=== PATIENT | female | born 1985 | race Caucasian/White ===

== ENCOUNTER 2018-03-29 12:20 | Inpatient (IN) ==
[2018-03-29] MEDS ORDERED: Gadodiamide PF Inj 287 MG/ML 20 ML Syringe (for RAD MRI) IVCONTRAST ONE (12:21)
[2018-03-29] MEDS ORDERED: HYDROmorphone PF Inj 1 MG/ML Ampul IV.PUSH ONE ×2 (13:43→17:34)
[2018-03-29 14:11] LABS: Baso % (Auto) 0.5 % (0.0-2.0); Eos # (Auto) 0.2 th/mm3 (0.0-0.4); Eos % (Auto) 2.3 % (0.0-4.0); Hematocrit 32.2 % (35.0-46.0); Hemoglobin 10.7 gm/dL (11.6-15.3); Lymph # (Auto) 2.1 th/mm3 (1.0-4.8); Lymph % (Auto) 21.7 % (9.0-44.0); Mean Corpuscular HGB Conc 33.3 % (32.0-36.0); Mean Corpuscular Hemoglobin 23.6 pg (27.0-34.0); Mean Corpuscular Volume 70.8 fL (80.0-100.0); Mean Platelet Volume 7.9 fL (7.0-11.0); Mono # (Auto) 0.4 th/mm3 (0.0-0.9); Mono % (Auto) 4.2 % (0.0-8.0); Neut # (Auto) 6.8 th/mm3 (1.8-7.7); Neut % (Auto) 71.3 % (16.0-70.0); Platelet Count 552 th/mm3 (150-450); Red Blood Count 4.55 mil/mm3 (4.00-5.30); Red Cell Distribution Width 17.6 % (11.6-17.2); White Blood Count 9.5 th/mm3 (4.0-11.0)
[2018-03-29] MEDS ORDERED: HYDROmorphone PF Inj 2 MG/ML Vial IV.PUSH ONE ×2 (14:15→17:45)
--- NOTE | 2018-03-29 14:28 | ED ---
HPI General Chief Complaint: Back Pain/Injury Stated Complaint: Back pain with increased severity Time Seen by Provider: 03/29/18 13:10 History of Present Illness HPI Narrative: Patient has history of recent hospitalization on 03/11/1918 for osteomyelitis of L5 and sacral area with IV antibiotics for 8 days and discharged with oral antibiotics afterwards. Patient was seen by PMD and prescribed analgesics however patient states pain is increasing in severity despite presence of analgesics. Patient was seen yesterday and recommended to have a MRI to recheck for abscess and lumbosacral spine to see if it has increased in severity. Patient panicked and signed out AMA without. starting being don patient now accepts the need for the MRI . Patient was hospitalized in [facility] for 8 days . Discharge records have been requested. Patient states the pain is localized to L5 and sacral region bilaterally. Patient has had persistent paresthesias or numbness to both lower extremities that have not changed since hospitalization on the . Patient also states she has had intermittent chills but presentation has no fever noted . 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 No other pain or discomfort or symptoms. Patient is a chronic smoker and has a chronic cough Related Data Home Medications Medication Instructions Recorded Confirmed ciprofloxacin 500 mg PO BID 03/29/18 03/29/18 cyclobenzaprine 5 PO DAILY 03/29/18 doxycycline hyclate 100 mg PO DAILY 03/29/18 03/29/18 hydroxyzine pamoate 25 mg PO QID 03/29/18 03/29/18 meloxicam 7.5 PO DAILY 03/29/18 Allergies Allergy/AdvReac Type Severity Reaction Status Date / Time tramadol AdvReac Gastrointestinal Verified 03/29/18 12:24 Upset Review of Systems ROS Unobtainable All other systems reviewed negative except as stated in HPI Constitutional Reports chills, Reports fatigue, Denies lethargy and Denies malaise Comments: GENERAL: Anxious female oriented 3 with increased lumbosacral pain that has progressed since discharge from hospital on March 20, 2018 SKIN: Focused skin assessment warm/dry. HEAD: Atraumatic. Normocephalic. EYES: Pupils equal and round. No scleral icterus. No injection or drainage. ENT: No nasal bleeding or discharge. Mucous membranes pink and moist. NECK: Trachea midline. No JVD. CARDIOVASCULAR: Regular rate and rhythm. No murmur appreciated. RESPIRATORY: Generalized decreased breath sounds with rhonchi bilaterally GASTROINTESTINAL: Abdomen soft, non-tender, nondistended. Hepatic and splenic margins not palpable. MUSCULOSKELETAL: No obvious deformities. No clubbing. No cyanosis. No edema. Patient has well localized tenderness to lower lumbar spine and sacral region that is increased with percussion NEUROLOGICAL: Awake and alert. No obvious cranial nerve deficits. Motor grossly within normal limits. Normal speech. Normal sensation to lower extremities however patient complains of constant numbness in that area bilaterally PSYCHIATRIC: Appropriate mood and affect; insight and judgment normal. However patient has increased anxiety and stress Eyes Denies change in vision [facility] Medical History Medical History Medical history unknown (Acute) Osteomyelitis (Acute) Patient denies medical problems (Acute) Diskospondylitis (Acute) Surgical History Surgical History Hx of tubal ligation (Acute) Previous section (Acute) S/P biopsy (Acute) Social History Social History Substance History: Past History Second Hand Smoke Exposure: Yes Smoking Status: Never smoker Tobacco Type: Cigarettes How Often Do You Have a Drink Containing Alcohol: Never Recent Travel in [facility] within the Last 8 Weeks: No Recent Out of Country Travel within the Last 8 Weeks: No Immunization History Tetanus Immunization: <5 Years Hx Influenza Vaccine This Season: No Exam Narrative Exam Narrative: GENERAL: Patient presents fo increasing lumbosacral pain for the last 2 weeks since discharge after IV antibiotics for infection of lumbosacral region . Biopsy of L5 done 3 days after her bariatric treatment showed no lesions SKIN: Focused skin assessment warm/dry. HEAD: Atraumatic. Normocephalic. EYES: Pupils equal and round. No scleral icterus. No injection or drainage. ENT: No nasal bleeding or discharge. Mucous membranes pink and moist. NECK: Trachea midline. No JVD. CARDIOVASCULAR: Regular rate and rhythm. No murmur appreciated. RESPIRATORY: No accessory muscle use. Clear to auscultation. Breath sounds equal bilaterally. GASTROINTESTINAL: Abdomen soft, non-tender, nondistended. Hepatic and splenic margins not palpable. MUSCULOSKELETAL: No obvious deformities. No clubbing. No cyanosis. No edema. Patient has well localized tenderness to L5 and upper sacral region with percussion. No evidence of infection from puncture wound site for biopsy NEUROLOGICAL: Awake and alert. No obvious cranial nerve deficits. Motor grossly within normal limits. Normal speech. PSYCHIATRIC: Appropriate mood and affect; insight and judgment normal. Increased anxiety and stress Course Reevaluation(s) Reevaluation #1: Exacerbation of level of pain 10 out of 10 requiring more analgesics Time: 15:28 Reevaluation #2: Still waiting for results of MRI and medical records from previous hospitalization. Increasing pain recurrent daily requiring increased analgesic Time: 16:39 Initial Documented Vital Signs Temperature 98.9 F 03/29/18 12:24 Pulse Rate 82 03/29/18 12:24 Respiratory Rate 16 03/29/18 12:24 Blood Pressure 133/83 03/29/18 12:24 Pulse Oximetry 98 03/29/18 12:24 Last Documented Vital Signs Temperature 98.9 F 03/29/18 12:24 Pulse Rate 99 H 03/29/18 17:20 Respiratory Rate 16 03/29/18 17:20 Blood Pressure 104/78 03/29/18 17:20 Pulse Oximetry 96 03/29/18 17:20 Critical Care Time Critical Care Time: Yes Total Critical Care Time: 110 Attestation: Patient is alert and oriented 3 and appeared to be appropriate Medical Decision Making MDM Narrative Medical decision making narrative: Patient has history of drug abuse presentation with significant analgesia that is progressive since the discharge and switch from IV to oral antibiotic appears to increasing analgesia and potential of exacerbation of osteomyelitis. However potential of narcotic abuse in the past exists as a possible etiology for presentation Differential Diagnosis Differential Diagnosis: Osteomyelitis Spine abscess Cauda equina Medical Records Medical records reviewed: Yes I reviewed the patient's medical records. POC Test Results POC Urine Results: Negative Lab Data Lab results reviewed: Yes I reviewed the patient's lab results. Lab results narrative: CRP and sed rate significantly elevated consistent with persistent osteomyelitis. However there is no significant leukocytosis Result diagrams: 03/29/18 14:00 Lab Results 03/29/18 03/29/18 03/29/18 Range/Units 14:00 14:00 14:00 CBC w Diff Auto diff final WBC 9.5 (4.0-11.0) th/mm3 RBC 4.55 (4.00-5.30) mil/mm3 Hgb 10.7 L (11.6-15.3) gm/dL Hct 32.2 L (35.0-46.0) % MCV 70.8 L (80.0-100.0) fL MCH 23.6 L (27.0-34.0) pg MCHC 33.3 (32.0-36.0) % RDW 17.6 H (11.6-17.2) % Plt Count 552 H (150-450) th/mm3 MPV 7.9 (7.0-11.0) fL Neut % (Auto) 71.3 H (16.0-70.0) % Lymph % (Auto) 21.7 (9.0-44.0) % [place] % (Auto) 4.2 (0.0-8.0) % Eos % (Auto) 2.3 (0.0-4.0) % Baso % (Auto) 0.5 (0.0-2.0) % Neut # (Auto) 6.8 (1.8-7.7) th/mm3 Lymph # (Auto) 2.1 (1.0-4.8) th/mm3 [place] # (Auto) 0.4 (0.0-0.9) th/mm3 Eos # (Auto) 0.2 (0.0-0.4) th/mm3 Baso # (Auto) 0.0 (0.0-0.2) th/mm3 WBC Differential . Differential Comment . ESR 72 H (0-20) mm/hr C-Reactive Protein 4.46 H (0.00-0.30) mg/dL Imaging Data Radiologist's impression: Lumbar Spine MRI 03/29/18 13:34 CONCLUSION: Discharge Plan Discharge Disposition Patient Disposition: 30 Still Patient Discharge Condition Condition: Stable Discharge Details Diagnosis: Osteomyelitis of spine Physicians Team ED Provider: Brian Gomez Primary Care Provider: Primary Care Anu Daugherty Attending Provider: Abdelrahman Aldridge Status ED Status: Admitted Patient
--- NOTE | 2018-03-29 17:13 | MR ---
EXAM DATE: 03/29/2018 5:00 PM EDT AGE/SEX: 32 years / Female INDICATIONS: . Lower back pain radiating down through the leg with history of infection. CLINICAL DATA: This is the patient's subsequent encounter. Patient reports that signs and symptoms h ave been present for 1 month and indicates a pain score of 9/10. MEDICAL/SURGICAL HISTORY: None. Tubal ligation. section. L5 biopsy COMPARISON: No prior exams available for comparison. TECHNIQUE: Multiplanar, multisequence MRI examination of the lumbar spine was performed without and with 16 ml Omniscan (gadodiamide) contrast as a single exam dose. FINDINGS: The most caudal-appearing lumbar vertebra is numbered as L5. Vertebra: Normal in height. Edema is noted in the endplates at the L4-5 level. Normal alignment. Conus: Normal level and configuration. Discs: There is desiccation and mild disc space narrowing at the L4-5 level. There is an anterior extradural defect noted at this level. The other disks are preserved. Post Contrast: There is focal enhancement involving the endplates at the L4 and L5 levels and abnorm al finding and enhancement in the anterior epidural space on the sagittal images. T12-L1: There is a small right parasagittal protrusion measuring approximately 6 mm across the base and 2 mm in AP diameter with mild mass effect on the anterior thecal sac. L1-L2: The thecal sac has a normal diameter. No evidence of disc bulge or protrusion. The neural foramina are patent bilaterally. L2-L3: The thecal sac has a normal diameter. No evidence of disc bulge or protrusion. The neural foramina are patent bilaterally. L3-L4: The thecal sac has a normal diameter. No evidence of disc bulge or protrusion. The neural fo ramina are patent bilaterally. L4-L5: There is a broad-based posterior moderate size protrusion measuring 2.2 cm across the base a nd up to 6 mm in greatest AP diameter with mass effect and flattening of anterior thecal sac. There i s inflammatory change and soft tissue swelling surrounding the vertebral body. The neural foramina ar e patent. L5-S1: The thecal sac has a normal diameter. No evidence of disc bulge or protrusion. The neural foramina are patent bilaterally. 1. Findings characteristic of discitis at the L4-5 level with abnormal thickening and enhancement in the anterior epidural region consistent with phlegmon. There is mass effect on the anterior thecal s ac. There is soft tissue swelling and edema surrounding this region. 2. Small right parasagittal protrusion at the T12-L1 level. Electronically signed by: Dominguez Eric MD 03/29/2018 5:11 PM EDT
[2018-03-29] MEDS ORDERED: Acetaminophen 325 MG Tablet PO PRN (19:53)
[2018-03-29] MEDS ORDERED: HYDROmorphone PF Inj 1 MG/ML Ampul IV.PUSH PRN ×2 (19:58→20:03)
[2018-03-29] MEDS: HYDROmorphone PF Inj 2 MG/ML Vial IV.PUSH PRN (20:21)
[2018-03-29] MEDS: Vancomycin Inj 1,000 MG in Sodium Chlor 0.9% Inj 250 ML IV.SIG SCH (20:21)
[2018-03-29] MEDS: Enoxaparin Inj 40 MG/0.4 ML Syringe SQ SCH (20:22)
[2018-03-29] MEDS: oxyCODONE/Acetaminophen 10/325 Tablet PO PRN (21:47)
[2018-03-30] MEDS: HYDROmorphone PF Inj 2 MG/ML Vial IV.PUSH PRN ×5 (00:09→19:36)
[2018-03-30] MEDS: Temazepam 15 MG Capsule PO PRN ×2 (00:12→22:19)
[2018-03-30] MEDS: oxyCODONE/Acetaminophen 10/325 Tablet PO PRN ×4 (04:20→22:20)
[2018-03-30 07:26] LABS: Hematocrit 27.2 % (35.0-46.0); Hemoglobin 9.3 gm/dL (11.6-15.3); Mean Corpuscular HGB Conc 34.1 % (32.0-36.0); Mean Corpuscular Hemoglobin 24.4 pg (27.0-34.0); Mean Corpuscular Volume 71.5 fL (80.0-100.0); Mean Platelet Volume 7.7 fL (7.0-11.0); Platelet Count 410 th/mm3 (150-450); Red Blood Count 3.81 mil/mm3 (4.00-5.30); Red Cell Distribution Width 17.4 % (11.6-17.2); White Blood Count 8.7 th/mm3 (4.0-11.0)
[2018-03-30 07:30] LABS: Potassium 4.1 meq/L (3.5-5.1)
[2018-03-30 07:36] LABS: Carbon Dioxide 24.2 meq/L (21.0-32.0)
[2018-03-30 07:54] LABS: C-Reactive Protein 3.76 mg/dL (0.00-0.30)
--- NOTE | 2018-03-30 08:01 | P.HP ---
History of Present Illness Primary Care Physician: No Primary Care Physician Chief Complaint: Back pain History of Present Illness: 32-year-old female with known history of spinal abscess, history of IV drug use (subjectively clean for 1 year) who presented to the ER because of intractable back pain. Information was taken from patient and mother at bedside. Apparently her symptoms started about a month ago and they went to [facility] where she was diagnosed with a spinal abscess. They did a bone biopsy to indicate osteomyelitis, she was on 8 days of vancomycin IV while in the hospital. Patient was followed by infectious disease at that time and was discharged home on oral antibiotics to include Cipro and doxycycline. Patient did well for the first few days but then she started having progressive back pain, difficulty ambulating, unable to put on her own clothes. She indicates the pain has regressed got worse that wraps around her pelvis, paresthesia going down both lower extremities. Patient denies any loss of bowel or bladder control. Patient came to the hospital here for further evaluation. Patient had MRI performed here which did not indicate any abscess, however does indicate discitis of L4-L5. Because of that reason it was recommended that patient be admitted with neurosurgical consultation. Upon evaluating patient in the room she is laying on her side. She was continuously moaning and groaning due to pain. - Diagnosis (1) Intractable low back pain (2) Discitis of lumbar region Inpatient Certification: I certify that the inpatient services were ordered in accordance with Medicare regulations governing the order. This includes certification that hospital inpatient services are reasonable and necessary and in the case of services not specified as inpatient-only under 42 CFR 419.22(n), that they are appropriately provided as inpatient services in accordance to with the 2-midnight benchmark under 43 CFR 412.3(e) Estimated Total Length of Stay (Days): 7 Plans for Post Hospital Care: Home Review of Systems All other systems reviewed negative except as stated in HPI Musculoskeletal: Reports abnormal walking, Reports back pain, Reports numbness, Reports radiating pain into limb, Reports tingling PMFSH - History History Provided By: Patient - Medical History Medical History: Medical History (Last Updated 03/30/18 @ 07:55 by SANFORD Merino) History of intravenous drug use in remission Osteomyelitis - Surgical History Surgical History: Surgical History (Last Reviewed 03/30/18 @ 07:56 by SANFORD Merino) Hx of tubal ligation Previous section S/P biopsy - Family History Family History: Family History (Last Updated 03/30/18 @ 07:43 by SANFORD Merino) Mother History of cervical cancer - Tobacco History Second Hand Smoke Exposure: Yes Tobacco Use In Past 30 Days: Yes (1ppd) Smoking Status: Never smoker Tobacco Type: Cigarettes - Alcohol History How Often Do You Have a Drink Containing Alcohol: Never - Substance Use History Substance History: Past History (History of IV drug use with heroin, subjectively clean for 1 year) - Travel History Recent Travel in the [facility] Within the Last 8 Weeks: No Recent Travel Out of the Country Within the Last 8 Weeks: No - Immunization History Tetanus Immunization: <5 Years Hx Influenza Vaccine This Season: No Medications and Allergies Active Medications: Active Medications Acetaminophen (Tylenol) 650 mg PO Q4H PRN PRN Reason: Temp > 100.4 Enoxaparin Sodium (Lovenox Inj) 40 mg SQ Q24H RUBEN Last Admin: 03/29/18 20:22 Dose: 40 mg Hydromorphone HCl (Dilaudid Pf Inj) 0.5 mg IV.PUSH Q4H PRN PRN Reason: BREAKTHROUGH PAIN Last Admin: 03/30/18 05:02 Dose: 0.5 mg Ceftazidime 1,000 mg/ Sodium (Chloride) 100 mls @ 200 mls/hr IV.SIG Q8H RUBEN Last Admin: 03/30/18 06:01 Dose: 200 mls/hr Vancomycin HCl 1,000 mg/ (Sodium Chloride) 250 mls @ 250 mls/hr IV.SIG Q24H [facility] Last Infusion: 03/29/18 21:49 Dose: Infused Ondansetron HCl (Zofran Odt) 4 mg PO Q6H PRN PRN Reason: NAUSEA OR VOMITING Oxycodone/Acetaminophen (Percocet 10/325 Mg) 1 tab PO Q4H PRN PRN Reason: PAIN SCALE 6 TO 10 Last Admin: 03/30/18 04:20 Dose: 1 tab Sennosides (Senokot) 17.2 mg PO Q12H PRN PRN Reason: Moderate Constipation Sodium Chloride (Ns Flush) 2 ml IV.FLUSH PRN PRN PRN Reason: FLUSH AFTER USING IV ACCESS Temazepam (Restoril) 15 mg PO HS PRN PRN Reason: INSOMNIA Last Admin: 03/30/18 00:12 Dose: 15 mg Allergies Allergy/AdvReac Type Severity Reaction Status Date / Time tramadol AdvReac Gastrointestinal Verified 03/29/18 12:24 Upset Home Medications Medication Instructions Recorded Confirmed Type ciprofloxacin 500 mg PO BID 03/29/18 03/29/18 History cyclobenzaprine 5 PO DAILY 03/29/18 History doxycycline hyclate 100 mg PO DAILY 03/29/18 03/29/18 History hydroxyzine pamoate 25 mg PO QID 03/29/18 03/29/18 History meloxicam 7.5 PO DAILY 03/29/18 History Exam Vital signs: Vital Signs 03/29/18 12:24 03/29/18 13:22 03/29/18 14:39 Temperature 98.9 F Pulse Rate 82 Respiratory Rate 16 16 16 Blood Pressure 133/83 Pulse Oximetry 98 99 03/29/18 15:25 03/29/18 17:20 03/29/18 20:00 Temperature 98.8 F Pulse Rate 96 H 99 H 88 Respiratory Rate 16 16 16 Blood Pressure 101/82 104/78 112/68 Pulse Oximetry 99 96 03/29/18 21:30 03/30/18 00:00 03/30/18 00:10 Temperature 97.3 F L 99.2 F Pulse Rate 74 105 H Respiratory Rate 20 18 10 L Blood Pressure 122/58 L 123/56 L Pulse Oximetry 98 97 03/30/18 04:00 Temperature 98.1 F Pulse Rate 76 Respiratory Rate 18 Blood Pressure 126/60 Pulse Oximetry 96 Intake & Output 03/29/18 03/30/18 03/30/18 18:59 06:59 18:59 Intake Total 350 / 350 Output Total 100 / 100 Balance 250 / 250 Weight 81 kg Intake: IV 350 / 350 Vancomycin Inj 1,000 MG In NS 250 / 250 Inj 250 ML @ 250 mls/hr IV.SIG Q24H RUBEN Rx#:[id number] Tazicef Inj 1,000 MG In NS Inj 100 / 100 100 ML @ 200 mls/hr IV.SIG Q8H RUBEN Rx#:[id number] Output: Urine 100 / 100 Other: Date of Last Bowel Movement 03/29/18 Narrative: GENERAL: Well-developed, well-nourished, in no acute distress. alert and orientated HEENT: Head is normocephalic without any lesions or masses noted. Facial features are symmetric. Eyes: Pupils equal round reactive to light. Extraocular muscles are intact. Conjunctivae were clear. Oropharyngeal: Pharynx without any erythema edema. Tongue is midline without deviation. Buccal mucosa is moist without any masses or lesions NECK: Supple without any masses. Trachea midline no deviation. No JVD, no bruits are appreciated CARDIAC: Regular rhythm, regular rate. S1/S2 are heard. No murmurs gallops or rubs. LUNGS: Clear to auscultation bilaterally. No wheeze, rhonchi or rales. No use of accessory muscles on inspiration or expiration. ABDOMEN: Soft, nontender. Nondistended. Bowel sounds heard in all 4 quadrants. No organomegaly or masses. Negative rebound, negative guarding EXTREMITIES: No edema, pulses are equal bilaterally. No cyanosis or clubbing NEUROLOGY: Mood and affect appear appropriate. Cranial nerves II through XII grossly intact. Muscle strength 5/5 in upper and lower extremities bilaterally. Deep tendon reflexes are 2+ in upper and lower extremities bilaterally. LUMBAR SPINE: There is a previous clarita from where she likely had the bone biopsy. There is no ecchymosis, bruising, erythema. Patient moans when very light touching of the skin was done. No deep palpation of her spine was performed. Deep tendon reflexes are intact in bilateral lower extremities. Plantar reflexes intact. Sensation is intact bilaterally. Patient is laying in bed with her knees up, patient has 5/5 strength in lower extremities bilaterally. Results - Labs CBC & Chem 7: 03/30/18 06:48 03/30/18 06:48 Labs: Laboratory Results - last 24 hr 03/29/18 03/29/18 03/29/18 14:00 14:00 14:00 CBC w Diff Auto diff final WBC 9.5 RBC 4.55 Hgb 10.7 L Hct 32.2 L MCV 70.8 L MCH 23.6 L MCHC 33.3 RDW 17.6 H Plt Count 552 H MPV 7.9 Neut % (Auto) 71.3 H Lymph % (Auto) 21.7 [place] % (Auto) 4.2 Eos % (Auto) 2.3 Baso % (Auto) 0.5 Neut # (Auto) 6.8 Lymph # (Auto) 2.1 [place] # (Auto) 0.4 Eos # (Auto) 0.2 Baso # (Auto) 0.0 WBC Differential . Differential Comment . ESR 72 H Sodium Potassium Chloride Carbon Dioxide Anion Gap BUN Random Glucose Calcium C-Reactive Protein 4.46 H 03/30/18 03/30/18 06:48 06:48 CBC w Diff WBC 8.7 RBC 3.81 L Hgb 9.3 L Hct 27.2 L MCV 71.5 L MCH 24.4 L MCHC 34.1 RDW 17.4 H Plt Count 410 MPV 7.7 Neut % (Auto) Lymph % (Auto) [place] % (Auto) Eos % (Auto) Baso % (Auto) Neut # (Auto) Lymph # (Auto) [place] # (Auto) Eos # (Auto) Baso # (Auto) WBC Differential Differential Comment ESR Sodium 138 Potassium 4.1 Chloride 107 Carbon Dioxide 24.2 Anion Gap 7 BUN 17 Random Glucose 93 Calcium 8.0 L D C-Reactive Protein - Imaging Impressions Lumbar Spine MRI 03/29/18 13:34 CONCLUSION: Caprini VTE Risk Assessment Caprini VTE Risk Assessment: Moderate/High Risk (score >= 2) Caprini Risk Assessment Model: Point Value = 1 Point Value = 2 Point Value = 3 Point Value = 5 Age 41-60 Minor surgery BMI > 25 kg/m2 Swollen legs Varicose veins or History of unexplained or recurrent spontaneous Oral contraceptives or hormone replacement Sepsis (< 1 month) Serious lung disease, including pneumonia (< 1 month) Abnormal pulmonary function Acute myocardial infarction Congestive heart failure (< 1 month) History of inflammatory bowel disease Medical patient at bed rest Age 61-74 Arthroscopic surgery Major open surgery (> 45 min) Laparoscopic surgery (> 45 min) Malignancy Confined to bed (> 72 hours) Immobilizing plaster cast Central venous access Age >= 75 History of VTE Family history of VTE Factor V Leiden Prothrombin [id number] Lupus anticoagulant Anticardiolipin antibodies Elevated serum homocysteine Heparin-induced thrombocytopenia Other congenital or acquired thrombophilia Stroke (< 1 month) Elective arthroplasty Hip, pelvis, or leg fracture Acute spinal cord injury (< 1 month) Prophylaxis Regimen: Total Risk Factor Score Risk Level Prophylaxis Regimen 0-1 Low Early ambulation 2 Moderate Order ONE of the following: *Sequential Compression Device (SCD) *Heparin 5000 units SQ BID 3-4 Higher Order ONE of the following medications: *Heparin 5000 units SQ TID *Enoxaparin/Lovenox 40 mg SQ daily (WT < 150 kg, CrCl > 30 mL/min) *Enoxaparin/Lovenox 30 mg SQ daily (WT < 150 kg, CrCl > 10-29 mL/min) *Enoxaparin/Lovenox 30 mg SQ BID (WT < 150 kg, CrCl > 30 mL/min) AND/OR *Sequential Compression Device (SCD) 5 or more Highest Order ONE of the following medications: *Heparin 5000 units SQ TID (Preferred with Epidurals) *Enoxaparin/Lovenox 40 mg SQ daily (WT < 150 kg, CrCl > 30 mL/min) *Enoxaparin/Lovenox 30 mg SQ daily (WT < 150 kg, CrCl > 10-29 mL/min) *Enoxaparin/Lovenox 30 mg SQ BID (WT < 150 kg, CrCl > 30 mL/min) AND *Sequential Compression Device (SCD) Assessment and Plan - Assessment (1) Intractable low back pain Code(s): M54.5 - Low back pain Status: Acute (2) Discitis of lumbar region Code(s): M46.46 - Discitis, unspecified, lumbar region Status: Acute - Plan Intractable back pain with MRI findings of discitis -Patient does have recent diagnosis of osteomyelitis of the spine, spinal abscess from [facility], patient was on 8 days of IV vancomycin while hospitalized, and subsequently been taking Cipro and doxycycline at home. Patient with increased risk due to history of IV drug use -Obtain records from [facility] -MRI does indicate discitis at L4/L5. Soft tissue area with phlegmon -Patient started on vancomycin -Neurosurgical consultation has been requested, plans to transfer to [facility] for evaluation -Infectious disease consult -Pain control with Percocet, Dilaudid, and Lidoderm patch -Physical therapy evaluation DVT prevention -Subcutaneous Lovenox
[2018-03-30] MEDS: Lidocaine 5% Patch T-DERMAL SCH (08:50)
--- NOTE | 2018-03-30 13:38 | P.CONID ---
History of Present Illness Service: Infectious disease Consult date: 03/30/18 Requesting Physician: Azalia Bright Reason for Consult: Evaluate patient with discitis Primary Care Provider: No Primary Care Physician Chief Complaint: Back pain History of Present Illness: Patient seen and examined. Records reviewed. Patient is a 32-year-old female, presented to the hospital complaining of worsening back pain. Her symptoms started around 05 March with low back pain. It was thought that it may be a sciatica, however it progressively worsen so she was admitted at [facility] around March 11. They were told that there was an abscess, and she subsequently underwent biopsy of her back about 3 days after being admitted. She was started on IV antibiotics when she came in, and was told that the culture of the biopsy came back negative. Patient stated that she was improving as far as the pain, and she was discharged on oral antibiotics with Cipro and doxycycline. She followed up with her primary care physician. About 4-5 days after she was discharged from the hospital, her back pain came back. It was pretty bad and it went all the way to the front down to both lower extremity. She also started having symptoms of neuropathy with pins and needles on her feet. She denies any urinary retention or any problem with bowel movement. She had several days of some loose stool but that has improved. She had several episode of temperature up to 101, but most of the time they are within normal limits. However she has been having some chills. She denies any respiratory complaint. She had some vomiting yesterday due to the severe pain. Medical records from [facility] have been requested and currently not available at the time my exam. She had an MRI done here which did not show any epidural abscess, but it did show findings of discitis at L4-L5. Since admission highest temperature has been 99+. Her sed rate is 72 and her C-reactive protein is elevated. Infectious disease consultation has been requested to assist with evaluation and treatment of patient with discitis. Review of Systems Constitutional: Reports chills, Reports fever(s) Eyes: Denies discharge Ears, Nose, Mouth, and Throat: Denies ear pain, Denies facial pain, Denies mouth pain, Denies nasal congestion, Denies nasal discharge, Denies sore throat Cardiovascular: Denies chest pain, Denies shortness of breath Respiratory: Denies cough, Denies shortness of breath Gastrointestinal: Reports loose stools, Reports nausea, Reports vomiting, Denies abdominal pain, Denies incontinent of stools, Denies pain with swallowing Genitourinary: Denies difficulty starting urination, Denies painful urination, Denies urinary incontinence Musculoskeletal: Reports back pain, Reports numbness, Reports radiating pain into limb, Reports tingling, Denies joint pain, Denies joint swelling Skin/Breast: Denies rash Neurologic: Denies headache(s) PMFSH - History History Provided By: Patient - Medical History Medical History: Medical History (Last Reviewed 03/30/18 @ 13:32 by Isabella Madera MD) History of intravenous drug use in remission Osteomyelitis - Surgical History Surgical History: Surgical History (Last Reviewed 03/30/18 @ 13:32 by Isabella Madera MD) Hx of tubal ligation Previous section S/P biopsy - Family History Family History: Family History (Last Updated 03/30/18 @ 07:43 by SANFORD Merino) Mother History of cervical cancer - Tobacco History Second Hand Smoke Exposure: Yes Tobacco Use In Past 30 Days: Yes (1ppd) Smoking Status: Never smoker Tobacco Type: Cigarettes - Alcohol History How Often Do You Have a Drink Containing Alcohol: Never - Substance Use History Substance History: Past History (History of IV drug use with heroin, subjectively clean for 1 year) - Travel History Recent Travel in the [place] Within the Last 8 Weeks: No Recent Travel Out of the Country Within the Last 8 Weeks: No - Immunization History Tetanus Immunization: <5 Years Hx Influenza Vaccine This Season: No Medications and Allergies Active Medications: Active Medications Acetaminophen (Tylenol) 650 mg PO Q4H PRN PRN Reason: Temp > 100.4 Enoxaparin Sodium (Lovenox Inj) 40 mg SQ Q24H RUBEN Last Admin: 03/29/18 20:22 Dose: 40 mg Hydromorphone HCl (Dilaudid Pf Inj) 0.5 mg IV.PUSH Q4H PRN PRN Reason: BREAKTHROUGH PAIN Last Admin: 03/30/18 09:20 Dose: 0.5 mg Ceftazidime 1,000 mg/ Sodium (Chloride) 100 mls @ 200 mls/hr IV.SIG Q8H RUBEN Last Admin: 03/30/18 06:01 Dose: 200 mls/hr Vancomycin HCl 1,000 mg/ (Sodium Chloride) 250 mls @ 250 mls/hr IV.SIG Q24H RUBEN Last Infusion: 03/29/18 21:49 Dose: Infused Lidocaine HCl (Lidoderm 5% Patch.12 Hr) 1 patch T-DERMAL DAILY RUBEN Last Admin: 03/30/18 08:50 Dose: 1 patch Ondansetron HCl (Zofran Odt) 4 mg PO Q6H PRN PRN Reason: NAUSEA OR VOMITING Oxycodone/Acetaminophen (Percocet 10/325 Mg) 1 tab PO Q4H PRN PRN Reason: PAIN SCALE 6 TO 10 Last Admin: 03/30/18 08:46 Dose: 1 tab Patch Removal (Remove Old Patch) 1 each T-DERMAL HS RUBEN Sennosides (Senokot) 17.2 mg PO Q12H PRN PRN Reason: Moderate Constipation Sodium Chloride (Ns Flush) 2 ml IV.FLUSH PRN PRN PRN Reason: FLUSH AFTER USING IV ACCESS Temazepam (Restoril) 15 mg PO HS PRN PRN Reason: INSOMNIA Last Admin: 03/30/18 00:12 Dose: 15 mg Allergies Allergy/AdvReac Type Severity Reaction Status Date / Time tramadol AdvReac Gastrointestinal Verified 03/29/18 12:24 Upset Home Medications Medication Instructions Recorded Confirmed Type ciprofloxacin 500 mg PO BID 03/29/18 03/29/18 History cyclobenzaprine 5 PO DAILY 03/29/18 History doxycycline hyclate 100 mg PO DAILY 03/29/18 03/29/18 History hydroxyzine pamoate 25 mg PO QID 03/29/18 03/29/18 History meloxicam 7.5 PO DAILY 03/29/18 History Exam Vital signs: Vital Signs 03/29/18 14:39 03/29/18 15:25 03/29/18 17:20 Temperature Pulse Rate 96 H 99 H Respiratory Rate 16 16 16 Blood Pressure 101/82 104/78 Pulse Oximetry 99 96 03/29/18 20:00 03/29/18 21:30 03/30/18 00:00 Temperature 98.8 F 97.3 F L 99.2 F Pulse Rate 88 74 105 H Respiratory Rate 16 20 18 Blood Pressure 112/68 122/58 L 123/56 L Pulse Oximetry 98 97 03/30/18 00:10 03/30/18 04:00 03/30/18 08:10 Temperature 98.1 F 98.0 F Pulse Rate 76 81 Respiratory Rate 10 L 18 19 Blood Pressure 126/60 120/69 Pulse Oximetry 96 97 03/30/18 12:00 Temperature 99.1 F Pulse Rate 73 Respiratory Rate 19 Blood Pressure 143/79 H Pulse Oximetry 98 Intake & Output 03/29/18 03/30/18 03/30/18 18:59 06:59 18:59 Intake Total 350 / 350 240 / 240 Output Total 100 / 100 Balance 250 / 250 240 / 240 Weight 81 kg Intake: IV 350 / 350 Vancomycin Inj 1,000 MG In NS 250 / 250 Inj 250 ML @ 250 mls/hr IV.SIG Q24H RUBEN Rx#:[id number] Tazicef Inj 1,000 MG In NS Inj 100 / 100 100 ML @ 200 mls/hr IV.SIG Q8H RUBEN Rx#:[id number] Oral 240 / 240 Output: Urine 100 / 100 Other: Date of Last Bowel Movement 03/29/18 Narrative: Physical Examination GENERAL: Patient is a well-nourished, well-developed female, awake and alert , not in respiratory distress. C/O back pain, sitting up in chair SKIN: Cool and dry. No generalized rash, no ecchymoses and no evidence of embolic lesions. HEAD: Atraumatic. Normocephalic. No temporal wasting, or tenderness. EYES: [place] conjunctiva. No petechia or hemorrhage. Pupils equal, round and reactive to light. Extraocular movements full and intact. No scleral icterus. No injection or drainage. EARS, NOSE AND THROAT: Nose without bleeding or purulent nasal discharge. No sinus tenderness. Mucous membranes pink and moist. No oral lesions noted. No exudate. No oral thrush. NECK: Trachea midline. Supple and not tender, no meningeal signs CARDIOVASCULAR: Regular rate and rhythm. No murmurs, rubs or gallops heard RESPIRATORY: Clear to auscultation. Breath sounds equal bilaterally. No rales , wheezing or rhonchi ABDOMEN: Soft, non-tender, nondistended. Bowel sounds present and normoactive. No guarding. No rebound. No organomegaly. EXTREMITIES: No clubbing, cyanosis, or edema.No joint effusion, has good ROM. No calf tenderness. Well perfused and warm. BACK: No swelling noted in lumbar region, has lidocaine patch NEUROLOGICAL: Awake and alert. Cranial nerves grossly intact. Motor grossly within normal limits. PSYCHIATRIC: Normal affect, anxious due to pain, and cooperative. LINE: No evidence of infection Results - Labs CBC & Chem 7: 03/30/18 06:48 03/30/18 06:48 Labs: Laboratory Results - last 24 hr 03/29/18 03/29/18 03/29/18 14:00 14:00 14:00 CBC w Diff Auto diff final WBC 9.5 RBC 4.55 Hgb 10.7 L Hct 32.2 L MCV 70.8 L MCH 23.6 L MCHC 33.3 RDW 17.6 H Plt Count 552 H MPV 7.9 Neut % (Auto) 71.3 H Lymph % (Auto) 21.7 Foster % (Auto) 4.2 Eos % (Auto) 2.3 Baso % (Auto) 0.5 Neut # (Auto) 6.8 Lymph # (Auto) 2.1 Foster # (Auto) 0.4 Eos # (Auto) 0.2 Baso # (Auto) 0.0 WBC Differential . Differential Comment . ESR 72 H Sodium Potassium Chloride Carbon Dioxide Anion Gap BUN Creatinine Estimated GFR Random Glucose Calcium C-Reactive Protein 4.46 H 03/30/18 03/30/18 06:48 06:48 CBC w Diff WBC 8.7 RBC 3.81 L Hgb 9.3 L Hct 27.2 L MCV 71.5 L MCH 24.4 L MCHC 34.1 RDW 17.4 H Plt Count 410 MPV 7.7 Neut % (Auto) Lymph % (Auto) Foster % (Auto) Eos % (Auto) Baso % (Auto) Neut # (Auto) Lymph # (Auto) Foster # (Auto) Eos # (Auto) Baso # (Auto) WBC Differential Differential Comment ESR Sodium 138 Potassium 4.1 Chloride 107 Carbon Dioxide 24.2 Anion Gap 7 BUN 17 Creatinine 0.78 Estimated GFR 86 L Random Glucose 93 Calcium 8.0 L D C-Reactive Protein 3.76 H - Imaging LUMBAR SPINE MRI: 1. Findings characteristic of discitis at the L4-5 level with abnormal thickening and enhancement in the anterior epidural region consistent with phlegmon. There is mass effect on the anterior thecal sac. There is soft tissue swelling and edema surrounding this region. 2. Small right parasagittal protrusion at the T12-L1 level. Assessment and Plan - Plan Impression Back pain, findings of L4-L5 discitis on MRI - previous biopsy negative (But was reportedly on Abx prior to biopsy) Hx IVDU (clean for about 1 year) Recommendation Await records from [facility] On IV vanco and Fortaz currently, continue for now Pain control Follow clinical course and decide of course of Rx I will follow along with you Thank you for this consultation
[2018-03-30] MEDS: Enoxaparin Inj 40 MG/0.4 ML Syringe SQ SCH (22:19)
[2018-03-30] MEDS: Vancomycin Inj 1,000 MG in Sodium Chlor 0.9% Inj 250 ML IV.SIG SCH (22:19)
[2018-03-31] MEDS: oxyCODONE/Acetaminophen 10/325 Tablet PO PRN ×4 (05:24→20:28)
[2018-03-31] MEDS: HYDROmorphone PF Inj 2 MG/ML Vial IV.PUSH PRN ×4 (06:30→22:19)
[2018-03-31] MEDS: Lidocaine 5% Patch T-DERMAL SCH (09:13)
--- NOTE | 2018-03-31 09:22 | P.CONNS ---
<Jocelyn Macedo - Last Filed: 03/31/18 12:33> History of Present Illness Service: Neurosurgery Primary Care Provider: No Primary Care Physician History of Present Illness: Ms. Cantu is a 32 year old female who complains of low back pain. She has a history of IV drug use. Her pain initially started beginning of March. She was evaluated at [facility]. She says she was told she had an abscess and was treated with IV antibiotics. She was then discharged home on oral antibiotics which she has completed and was supposed to follow up with Dr. Karen Zamora outpatient. Unfortunately she reports her pain and symptoms only got worse. She was complaining of severe lumbar pain so she presented to [facility]. An MRI Lumbar spine was done showed discitis at L4-5 with anterior epidural phlegmon. Ms. Cantu report she has had radiating pain down her buttocks, hamstring, and behind the knee. She has new burning sensation in both feet which she reports started yesterday. She has had difficulty walking and moving her legs due to pain. She denies bowel or bladder dysfunction, chest pain, shortness of breath, or difficulty breathing. Review of Systems Constitutional: Reports fatigue, Reports malaise Eyes: Denies blurry vision, Denies double vision Ears, Nose, Mouth, and Throat: Denies lip swelling, Denies mouth pain, Denies nasal congestion, Denies throat swelling Cardiovascular: Denies chest pain, Denies rapid, pounding, or irregular heartbeat, Denies shortness of breath Gastrointestinal: Denies abdominal pain, Denies nausea, Denies vomiting Musculoskeletal: Reports back pain, Reports joint pain, Reports numbness, Reports radiating pain into limb, Reports tingling Neurologic: Reports abnormal walking, Reports tingling, Reports tingling/ numbness/burning sensations, Reports weakness, Denies other visual disturbances , Denies seizure-like activity PMFSH - Medical History Medical History: Medical History (Last Reviewed 03/30/18 @ 13:32 by Isabella Madera MD) History of intravenous drug use in remission Osteomyelitis - Surgical History Surgical History: Surgical History (Last Reviewed 03/30/18 @ 13:32 by Isabella Madera MD) Hx of tubal ligation Previous section S/P biopsy - Family History Family History: Family History (Last Updated 03/30/18 @ 07:43 by SANFORD Merino) Mother History of cervical cancer Medications and Allergies Allergies Allergy/AdvReac Type Severity Reaction Status Date / Time tramadol AdvReac Gastrointestinal Verified 03/29/18 12:24 Upset Home Medications Medication Instructions Recorded Confirmed Type ciprofloxacin 500 mg PO BID 03/29/18 03/29/18 History cyclobenzaprine 5 PO DAILY 03/29/18 History doxycycline hyclate 100 mg PO DAILY 03/29/18 03/29/18 History hydroxyzine pamoate 25 mg PO QID 03/29/18 03/29/18 History meloxicam 7.5 PO DAILY 03/29/18 History Active Medications: Active Medications Acetaminophen (Tylenol) 650 mg PO Q4H PRN PRN Reason: Temp > 100.4 Enoxaparin Sodium (Lovenox Inj) 40 mg SQ Q24H [facility] Last Admin: 03/30/18 22:19 Dose: 40 mg Gabapentin (Neurontin) 300 mg PO TID [facility] Hydromorphone HCl (Dilaudid Pf Inj) 0.5 mg IV.PUSH Q4H PRN PRN Reason: BREAKTHROUGH PAIN Last Admin: 03/31/18 06:30 Dose: 0.5 mg Ceftazidime 1,000 mg/ Sodium (Chloride) 100 mls @ 200 mls/hr IV.SIG Q8H [facility] Last Infusion: 03/31/18 07:34 Dose: Infused Vancomycin HCl 1,000 mg/ (Sodium Chloride) 250 mls @ 250 mls/hr IV.SIG Q24H [facility] Last Infusion: 03/30/18 23:19 Dose: Infused Lidocaine HCl (Lidoderm 5% Patch.12 Hr) 1 patch T-DERMAL DAILY [facility] Last Admin: 03/31/18 09:13 Dose: 1 patch Ondansetron HCl (Zofran Odt) 4 mg PO Q6H PRN PRN Reason: NAUSEA OR VOMITING Oxycodone/Acetaminophen (Percocet 10/325 Mg) 1 tab PO Q4H PRN PRN Reason: PAIN SCALE 6 TO 10 Last Admin: 03/31/18 09:13 Dose: 1 tab Patch Removal (Remove Old Patch) 1 each T-DERMAL HS [facility] Last Admin: 03/30/18 22:19 Dose: 1 each Sennosides (Senokot) 17.2 mg PO Q12H PRN PRN Reason: Moderate Constipation Sodium Chloride (Ns Flush) 2 ml IV.FLUSH PRN PRN PRN Reason: FLUSH AFTER USING IV ACCESS Last Admin: 03/30/18 14:27 Dose: 2 ml Temazepam (Restoril) 15 mg PO HS PRN PRN Reason: INSOMNIA Last Admin: 03/30/18 22:19 Dose: 15 mg Exam Vital signs: Vital Signs 03/30/18 12:00 03/30/18 20:00 03/31/18 00:00 Temperature 99.1 F 98.3 F 98.6 F Pulse Rate 73 83 76 Respiratory Rate 19 18 18 Blood Pressure 143/79 H 129/59 L 112/57 L Pulse Oximetry 98 98 97 03/31/18 04:00 Temperature 97.7 F Pulse Rate 75 Respiratory Rate 16 Blood Pressure 107/58 L Pulse Oximetry 100 Intake & Output 03/30/18 03/31/18 03/31/18 18:59 06:59 18:59 Intake Total 240 / 240 350 / 350 100 / 100 Balance 240 / 240 350 / 350 100 / 100 Weight 83.7 kg 84 kg Intake: IV 350 / 350 100 / 100 Vancomycin Inj 1,000 MG In NS 250 / 250 Inj 250 ML @ 250 mls/hr IV.SIG Q24H [facility] Rx#:[id number] Tazicef Inj 1,000 MG In NS Inj 100 / 100 100 / 100 100 ML @ 200 mls/hr IV.SIG Q8H [facility] Rx#:[id number] Oral 240 / 240 Other: Date of Last Bowel Movement 03/29/18 03/30/18 Weight On Admission 83.7 kg Narrative: General: Well nourished. Upon entering patient seen sitting in chair eating her breakfast. HEENT: Normocephalic, atraumatic. Normal conjunctiva. No nasal drainage. Gross hearing intact bilaterally. No ear drainage. Neck: No masses, no JVD. Trachea midline. Soft, supple, no meningismus or nuchal rigidity. Normal range of motion without pain Neuro: Awake, alert and oriented to person, place, and time. Speech is clear and fluent. Can follow single and multi-step commands without apraxia. Cranial nerve examination: pupils to be equal, round, and reactive to light. Extra-ocular movements are intact with normal convergence. Facial motor and sensory function are normal and symmetrical. Gross hearing is intact, bilaterally, to finger rub. The uvula is midline and elevates symmetrically with the soft palate. Sternocleidomastoid and deltoid muscles have normal and symmetrical strength. Other cranial nerves are intact. Deep tendon reflexes are 1+ biceps, triceps, and brachioradialis, bilaterally, in the upper extremities. In the lower extremities, the patellar and Achilles are 1+, bilaterally. There is a bilateral plantar flexion response. Cassidy s sign is negative. There is no clonus. Sensory examination is intact light touch in both the upper and lower extremities with reports of paresthesias both lateral calves and feet. Cerebellar examination normal finger to nose bilaterally. Extremities: No obvious deformities. No clubbing. No peripheral edema. No increased tone, atrophy, or fasciculations. 5/5 in all muscle groups of both upper extremities including deltoid, biceps, triceps and wool tamper. In the lower extremities, strength is 3-4/5 in both iliopsoas with complaints of pain, 4/5 quadriceps, hamstrings with complaints of pain, 5-tibialis anterior, gastrocnemius, and extensor hallucis longus. Lumbar spine No obvious deformities. Very limited ROM due to pain. Lungs: Clear to auscultate bilaterally, nonlabored breathing on room air, no wheezing,rhonchi or crackles. No accessory muscle use. Heart: Regular rate and rhythm Abdomen: Soft, nontender. Positive bowel sounds Skin: Warm and dry, no cyanosis or erythema. Results - Laboratory Findings CBC and BMP: 03/30/18 06:48 03/30/18 06:48 Abnormal lab findings: Abnormal Labs 03/29/18 03/29/18 03/29/18 14:00 14:00 14:00 RBC Hgb 10.7 L Hct 32.2 L MCV 70.8 L MCH 23.6 L RDW 17.6 H Plt Count 552 H Neut % (Auto) 71.3 H ESR 72 H Estimated GFR Calcium C-Reactive Protein 4.46 H 03/30/18 03/30/18 06:48 06:48 RBC 3.81 L Hgb 9.3 L Hct 27.2 L MCV 71.5 L MCH 24.4 L RDW 17.4 H Plt Count Neut % (Auto) ESR Estimated GFR 86 L Calcium 8.0 L D C-Reactive Protein 3.76 H <Ke Sprague - Last Filed: 03/31/18 18:53> History of Present Illness Primary Care Provider: No Primary Care Physician Chief Complaint: Back pain History of Present Illness: Ms. Cantu is a 32 year old female who complains of low back pain. She has a history of IV drug use. Her pain initially started beginning of March. She was evaluated at [facility]. She says she was told she had an abscess and was treated with IV antibiotics for 1 week. She was then discharged home after 1 week on oral antibiotics which she has completed and was supposed to follow up with Dr. Karen Zamora outpatient. Unfortunately she reports her pain and symptoms only got worse. She was complaining of severe lumbar pain so she presented to [facility]. An MRI Lumbar spine was done showed discitis at L4-5 with anterior epidural phlegmon. Ms. Cantu report she has had radiating pain down her buttocks, hamstring, and behind the knee. She has burning sensation in both feet. She has had difficulty walking and moving her legs due to pain. She denies bowel or bladder dysfunction, chest pain, shortness of breath, or difficulty breathing. Neurosdurgery consultation was requested [facility] - History History Provided By: Patient - Medical History Medical History: Medical History (Last Reviewed 03/31/18 @ 18:49 by Ke Sprague MD) History of intravenous drug use in remission Osteomyelitis - Surgical History Surgical History: Surgical History (Last Reviewed 03/31/18 @ 18:49 by Ke Sprague MD) Hx of tubal ligation Previous section S/P biopsy - Family History Family History: Family History (Last Reviewed 03/31/18 @ 18:49 by Ke Sprague MD) Mother History of cervical cancer - Tobacco History Second Hand Smoke Exposure: Yes Tobacco Use In Past 30 Days: Yes (1ppd) Smoking Status: Never smoker Tobacco Type: Cigarettes - Alcohol History How Often Do You Have a Drink Containing Alcohol: Never - Substance Use History Substance History: Past History (History of IV drug use with heroin, subjectively clean for 1 year) - Travel History Recent Travel in the [facility] Within the Last 8 Weeks: No Recent Travel Out of the Country Within the Last 8 Weeks: No - Immunization History Tetanus Immunization: <5 Years Hx Influenza Vaccine This Season: No Medications and Allergies Active Medications: Active Medications Acetaminophen (Tylenol) 650 mg PO Q4H PRN PRN Reason: Temp > 100.4 Enoxaparin Sodium (Lovenox Inj) 40 mg SQ Q24H [facility] Last Admin: 03/30/18 22:19 Dose: 40 mg Hydromorphone HCl (Dilaudid Pf Inj) 0.5 mg IV.PUSH Q4H PRN PRN Reason: BREAKTHROUGH PAIN Last Admin: 03/31/18 06:30 Dose: 0.5 mg Ceftazidime 1,000 mg/ Sodium (Chloride) 100 mls @ 200 mls/hr IV.SIG Q8H [facility] Last Infusion: 03/31/18 07:34 Dose: Infused Vancomycin HCl 1,000 mg/ (Sodium Chloride) 250 mls @ 250 mls/hr IV.SIG Q24H [facility] Last Infusion: 03/30/18 23:19 Dose: Infused Lidocaine HCl (Lidoderm 5% Patch.12 Hr) 1 patch T-DERMAL DAILY [facility] Last Admin: 03/31/18 09:13 Dose: 1 patch Ondansetron HCl (Zofran Odt) 4 mg PO Q6H PRN PRN Reason: NAUSEA OR VOMITING Oxycodone/Acetaminophen (Percocet 10/325 Mg) 1 tab PO Q4H PRN PRN Reason: PAIN SCALE 6 TO 10 Last Admin: 03/31/18 09:13 Dose: 1 tab Patch Removal (Remove Old Patch) 1 each T-DERMAL HS [facility] Last Admin: 03/30/18 22:19 Dose: 1 each Sennosides (Senokot) 17.2 mg PO Q12H PRN PRN Reason: Moderate Constipation Sodium Chloride (Ns Flush) 2 ml IV.FLUSH PRN PRN PRN Reason: FLUSH AFTER USING IV ACCESS Last Admin: 03/30/18 14:27 Dose: 2 ml Temazepam (Restoril) 15 mg PO HS PRN PRN Reason: INSOMNIA Last Admin: 03/30/18 22:19 Dose: 15 mg Exam Vital signs: Vital Signs 03/30/18 12:00 03/30/18 20:00 03/31/18 00:00 Temperature 99.1 F 98.3 F 98.6 F Pulse Rate 73 83 76 Respiratory Rate 19 18 18 Blood Pressure 143/79 H 129/59 L 112/57 L Pulse Oximetry 98 98 97 03/31/18 04:00 Temperature 97.7 F Pulse Rate 75 Respiratory Rate 16 Blood Pressure 107/58 L Pulse Oximetry 100 Intake & Output 03/30/18 03/31/18 03/31/18 18:59 06:59 18:59 Intake Total 240 / 240 350 / 350 100 / 100 Balance 240 / 240 350 / 350 100 / 100 Weight 83.7 kg 84 kg Intake: IV 350 / 350 100 / 100 Vancomycin Inj 1,000 MG In NS 250 / 250 Inj 250 ML @ 250 mls/hr IV.SIG Q24H [facility]EN Rx#:[id number] Tazicef Inj 1,000 MG In NS Inj 100 / 100 100 / 100 100 ML @ 200 mls/hr IV.SIG Q8H [facility] Rx#:[id number] Oral 240 / 240 Other: Date of Last Bowel Movement 03/29/18 03/30/18 Weight On Admission 83.7 kg Results - Laboratory Findings CBC and BMP: 03/30/18 06:48 03/30/18 06:48 Abnormal lab findings: Abnormal Labs 03/29/18 03/29/18 03/29/18 14:00 14:00 14:00 RBC Hgb 10.7 L Hct 32.2 L MCV 70.8 L MCH 23.6 L RDW 17.6 H Plt Count 552 H Neut % (Auto) 71.3 H ESR 72 H Estimated GFR Calcium C-Reactive Protein 4.46 H 03/30/18 03/30/18 06:48 06:48 RBC 3.81 L Hgb 9.3 L Hct 27.2 L MCV 71.5 L MCH 24.4 L RDW 17.4 H Plt Count Neut % (Auto) ESR Estimated GFR 86 L Calcium 8.0 L D C-Reactive Protein 3.76 H Assessment and Plan - Plan Neuro: neuro checks in a serial fashion. Recommend nonoperative treatment. I do not recommend surgery at this time This patient has been incompletely treated. Only 1 week of IV treatment for osteomyelitis and discitis provided at [facility] is inappropriated, against all current standards of care. Blood cultures If need further tissue diagnosis, consider CT-guided aspiration for further cultures Awaiting for records from [facility] On IV vanco and Fortaz currently, continue for now Pain control with analgesics Pulmonary: aggressive pulmonary toilette, nasotracheal suction, and breathing treatments with nebulizers. Daily PT and OT Renal: Continue to monitor closely urine output, BUN and creatinine Endocrine: Continue to Monitor serial Acu checks and SSI as needed in detail ID continue to monitor for signs of infection Continue Protonix for stress ulcer prophylaxis Continue Asif hose and SCD's for DVT prophylaxis Further recommendations will be provided depending on the patient's clinical evaluation and follow up studies. The exam, history, and the medical decision-making described in the above note were completed with the assistance of the mid-level provider. I reviewed and agree with the findings presented. I attest that I had a [id number] encounter with the patient on the same day, and personally performed and documented my assessment and findings in the medical record.
[2018-03-31] MEDS ORDERED: Morphine Sulfate 30 MG SR Tablet PO ONE (13:53)
[2018-03-31] MEDS ORDERED: ALPRAZolam 0.5 MG Tablet PO PRN (13:55)
--- NOTE | 2018-03-31 14:04 | P.PNIM ---
Subjective Interval history: Primary complaint is still lower back pain. Situation appears to be failure of outpatient treatment for spinal abscess. No recent IV drug use. Plan to screen for cardiac vegetations, but etiology is suspected to be related to past IV drug abuse, patient has been free of drugs for between 2 and 3 years. Physical Exam Vital signs: Vital Signs 03/30/18 20:00 03/31/18 00:00 03/31/18 04:00 Temperature 98.3 F 98.6 F 97.7 F Pulse Rate 83 76 75 Respiratory Rate 18 18 16 Blood Pressure 129/59 L 112/57 L 107/58 L Pulse Oximetry 98 97 100 03/31/18 08:00 Temperature 98.2 F Pulse Rate 78 Respiratory Rate 16 Blood Pressure 122/57 L Pulse Oximetry 97 Intake & Output 03/30/18 03/31/18 03/31/18 18:59 06:59 18:59 Intake Total 240 / 240 350 / 350 100 / 100 Balance 240 / 240 350 / 350 100 / 100 Weight 83.7 kg 84 kg Intake: IV 350 / 350 100 / 100 Vancomycin Inj 1,000 MG In NS 250 / 250 Inj 250 ML @ 250 mls/hr IV.SIG Q24H [facility] Rx#:[id number] Tazicef Inj 1,000 MG In NS Inj 100 / 100 100 / 100 100 ML @ 200 mls/hr IV.SIG Q8H [facility] Rx#:[id number] Oral 240 / 240 Other: Date of Last Bowel Movement 03/29/18 03/30/18 Weight On Admission 83.7 kg Narrative: GENERAL: NAD, A&Ox3 HEAD: Normocephalic. NECK: Supple, trachea midline. No lymphadenopathy. EYES: No scleral icterus. No injection or drainage. CARDIOVASCULAR: Regular rate and rhythm without murmurs, gallops, or rubs. RESPIRATORY: Breath sounds equal bilaterally. No accessory muscle use. GASTROINTESTINAL: Abdomen soft, non-tender, nondistended. MUSCULOSKELETAL: No cyanosis, or edema. Decreased range of motion at lower back due to pain. SKIN: Warm and dry. NEURO: No focal neurological deficits. Results - Labs CBC & Chem 7: 03/30/18 06:48 03/30/18 06:48 Microbiology 03/29/18 14:00 Blood - Peripheral Aerobic Blood Culture - Preliminary No growth in 2 days 03/29/18 14:00 Blood - Peripheral Anaerobic Blood Culture - Preliminary No growth in 2 days 03/29/18 13:45 Blood - Peripheral Aerobic Blood Culture - Preliminary No growth in 2 days 03/29/18 13:45 Blood - Peripheral Anaerobic Blood Culture - Preliminary No growth in 2 days Assessment and Plan - Assessment (1) Intractable low back pain Code(s): M54.5 - Low back pain Status: Acute (2) Discitis of lumbar region Code(s): M46.46 - Discitis, unspecified, lumbar region Status: Acute - Plan 32-year-old female admitted secondary to spinal abscess. Spinal osteomyelitis Discitis Outpatient treatment failure Ciprofloxacin and doxycycline failed as an outpatient p.o. treatment Discitis at L4/L5 Continue vancomycin ID following Neurosurgery following Continue pain treatments with Percocet MS Contin added General anxiety disorder Panic attack disorder Exacerbated given current situation Xanax as needed Klonopin 3 times daily DVT prevention Lovenox
[2018-03-31 14:39] LABS: Activated Partial Thrombo Time 28.6 sec (24.3-30.1); Prothrombin Time 9.8 sec (9.8-11.6)
[2018-03-31] MEDS: clonazePAM 0.5 MG Tablet PO SCH ×2 (14:46→22:18)
[2018-03-31] MEDS: Gabapentin 300 MG Capsule PO SCH ×2 (14:47→17:19)
[2018-03-31] MEDS: Enoxaparin Inj 40 MG/0.4 ML Syringe SQ SCH (20:30)
[2018-03-31] MEDS: Vancomycin Inj 1,000 MG in Sodium Chlor 0.9% Inj 250 ML IV.SIG SCH (20:30)
[2018-03-31] MEDS: Temazepam 15 MG Capsule PO PRN (22:18)
[2018-04-01] MEDS: oxyCODONE/Acetaminophen 10/325 Tablet PO PRN ×5 (03:59→22:25)
[2018-04-01] MEDS: HYDROmorphone PF Inj 2 MG/ML Vial IV.PUSH PRN ×4 (05:21→20:12)
[2018-04-01] MEDS: clonazePAM 0.5 MG Tablet PO SCH ×3 (05:21→22:19)
[2018-04-01 07:31] LABS: Baso % (Auto) 0.7 % (0.0-2.0); Eos # (Auto) 0.2 th/mm3 (0.0-0.4); Eos % (Auto) 3.5 % (0.0-4.0); Hematocrit 29.3 % (35.0-46.0); Hemoglobin 9.5 gm/dL (11.6-15.3); Lymph # (Auto) 1.7 th/mm3 (1.0-4.8); Lymph % (Auto) 25.2 % (9.0-44.0); Mean Corpuscular HGB Conc 32.5 % (32.0-36.0); Mean Corpuscular Hemoglobin 23.3 pg (27.0-34.0); Mean Corpuscular Volume 71.7 fL (80.0-100.0); Mean Platelet Volume 7.3 fL (7.0-11.0); Mono # (Auto) 0.6 th/mm3 (0.0-0.9); Mono % (Auto) 8.6 % (0.0-8.0); Neut # (Auto) 4.1 th/mm3 (1.8-7.7); Platelet Count 377 th/mm3 (150-450); Red Blood Count 4.09 mil/mm3 (4.00-5.30); Red Cell Distribution Width 18.4 % (11.6-17.2); White Blood Count 6.6 th/mm3 (4.0-11.0)
[2018-04-01 07:54] LABS: Alanine Aminotransferase 17 U/L (10-53); Albumin 2.9 g/dL (3.4-5.0); Anion Gap 8 meq/L (5-15); Aspartate Aminotransferase 17 U/L (15-37); Blood Urea Nitrogen 11 mg/dL (7-18); Calcium 8.3 mg/dL (8.5-10.1); Carbon Dioxide 25.2 meq/L (21.0-32.0); Chloride 106 meq/L (98-107); Glomerular Filtration Rate Greater Than 89 mL/min (>89); Glucose,Random 93 mg/dL (74-106); Potassium 4.1 meq/L (3.5-5.1); Sodium 139 meq/L (136-145)
[2018-04-01 07:57] LABS: Alkaline Phosphatase 89 U/L (45-117); Total Protein 7.4 g/dL (6.4-8.2)
[2018-04-01] MEDS: Lidocaine 5% Patch T-DERMAL SCH (08:42)
[2018-04-01] MEDS: Gabapentin 300 MG Capsule PO SCH ×3 (08:43→18:16)
[2018-04-01] MEDS: Morphine Sulfate 30 MG SR Tablet PO SCH ×2 (08:43→20:15)
--- NOTE | 2018-04-01 09:36 | P.PNID ---
Subjective Remarks: Patient is a 32-year-old female, presented to the hospital complaining of worsening back pain. Her symptoms started around 05 March with low back pain. It was thought that it may be a sciatica, however it progressively worsen so she was admitted at [facility] around March 11. They were told that there was an abscess, and she subsequently underwent biopsy of her back about 3 days after being admitted. She was started on IV antibiotics when she came in, and was told that the culture of the biopsy came back negative. Patient stated that she was improving as far as the pain, and she was discharged on oral antibiotics with Cipro and doxycycline. She followed up with her primary care physician. About 4-5 days after she was discharged from the hospital, her back pain came back. It was pretty bad and it went all the way to the front down to both lower extremity. She also started having symptoms of neuropathy with pins and needles on her feet. She denies any urinary retention or any problem with bowel movement. She had several days of some loose stool but that has improved. She had several episode of temperature up to 101, but most of the time they are within normal limits. However she has been having some chills. She denies any respiratory complaint. She had some vomiting yesterday due to the severe pain. Medical records from [facility] have been requested and currently not available at the time my exam. She had an MRI done here which did not show any epidural abscess, but it did show findings of discitis at L4-L5. Since admission highest temperature has been 99+. Her sed rate is 72 and her C-reactive protein is elevated. Infectious disease consultation has been requested to assist with evaluation and treatment of patient with discitis. Notes reviewed Low grade temps C/O back spasm when she was up Wearing back brace as tolerated BC negative [place] [facility] Antibiotics: Vancomycin Fortaz Lines: PIV no evid of infection Past Medical History: History of intravenous drug use in remission Osteomyelitis Hx of tubal ligation Previous section S/P biopsy Allergies/Adverse Reactions: Allergies tramadol Adverse Reaction (Verified 03/29/18 12:24) Gastrointestinal Upset Objective Vital Signs 03/31/18 12:00 03/31/18 15:56 04/01/18 00:00 Temperature 97.9 F 100.2 F H 98.2 F Pulse Rate 85 78 81 Respiratory Rate 16 16 16 Blood Pressure 109/54 L 117/62 104/67 Pulse Oximetry 95 97 04/01/18 04:00 04/01/18 08:00 Temperature 98.3 F 98.1 F Pulse Rate 84 94 H Respiratory Rate 18 16 Blood Pressure 135/58 L 138/72 Pulse Oximetry 100 100 Intake & Output 03/31/18 04/01/18 04/01/18 18:59 06:59 18:59 Intake Total 300 / 300 100 / 100 350 / 350 Balance 300 / 300 100 / 100 350 / 350 Weight 84.8 kg Intake: IV 300 / 300 100 / 100 350 / 350 Ofirmev Inj 1,000 mg In 100 ml 100 / 100 @ 400 mls/hr IV.SIG ONCE ONE Rx #:[id number] Vancomycin Inj 1,000 MG In NS 250 / 250 Inj 250 ML @ 250 mls/hr IV.SIG Q24H [facility] Rx#:[id number] Tazicef Inj 1,000 MG In NS Inj 200 / 200 100 / 100 100 / 100 100 ML @ 200 mls/hr IV.SIG Q8H [facility] Rx#:[id number] Other: # Voids 1 Date of Last Bowel Movement 03/31/18 03/29/18 14:00 Blood - Peripheral Aerobic Blood Culture - Preliminary No growth in 2 days 03/29/18 14:00 Blood - Peripheral Anaerobic Blood Culture - Preliminary No growth in 2 days 03/29/18 13:45 Blood - Peripheral Aerobic Blood Culture - Preliminary No growth in 2 days 03/29/18 13:45 Blood - Peripheral Anaerobic Blood Culture - Preliminary No growth in 2 days Lab - Hematology Results 04/01/18 07:07 WBC 6.6 RBC 4.09 Hgb 9.5 L Hct 29.3 L MCV 71.7 L MCH 23.3 L MCHC 32.5 RDW 18.4 H Plt Count 377 MPV 7.3 Neut % (Auto) 62.0 Lymph % (Auto) 25.2 Schley % (Auto) 8.6 H Eos % (Auto) 3.5 Baso % (Auto) 0.7 Neut # (Auto) 4.1 Lymph # (Auto) 1.7 Schley # (Auto) 0.6 Eos # (Auto) 0.2 Baso # (Auto) 0.0 WBC Differential . Differential Comment Auto diff final Lab - Chemistry Results 04/01/18 07:07 Sodium 139 Potassium 4.1 Chloride 106 Carbon Dioxide 25.2 Anion Gap 8 BUN 11 Creatinine 0.70 Estimated GFR Greater than 89 Random Glucose 93 Calcium 8.3 L Total Bilirubin 0.2 AST 17 ALT 17 Alkaline Phosphatase 89 Total Protein 7.4 D Albumin 2.9 L Imaging: ITS Impressions Lumbar Spine MRI 03/29/18 13:34 CONCLUSION: Physical Exam: GENERAL: awake and alert, not in respiratory distress. Sitting at side of bed SKIN: Cool and dry. No generalized rash, no ecchymoses and no evidence of embolic lesions. HEAD: Atraumatic. Normocephalic. No temporal wasting, or tenderness. EYES: [place] conjunctiva. No petechia or hemorrhage. Pupils equal, round and reactive to light. Extraocular movements full and intact. No scleral icterus. No injection or drainage. EARS, NOSE AND THROAT: Nose without bleeding or purulent nasal discharge. No sinus tenderness. Mucous membranes pink and moist. No oral lesions noted. No exudate. No oral thrush. NECK: Trachea midline. Supple and not tender, no meningeal signs CARDIOVASCULAR: Regular rate and rhythm. No murmurs, rubs or gallops heard RESPIRATORY: Clear to auscultation. Breath sounds equal bilaterally. No rales , wheezing or rhonchi ABDOMEN: Soft, non-tender, nondistended. Bowel sounds present and normoactive. No guarding. No rebound. No organomegaly. EXTREMITIES: No clubbing, cyanosis, or edema.No joint effusion, has good ROM. No calf tenderness. Well perfused and warm. BACK: No swelling noted in lumbar region NEUROLOGICAL: Awake and alert. Cranial nerves grossly intact. Motor grossly within normal limits. PSYCHIATRIC: Normal affect, anxious due to pain, and cooperative. LINE: No evidence of infection Assessment and Plan - Plan Impression Back pain, findings of L4-L5 discitis on MRI - previous biopsy negative (But was reportedly on Abx prior to biopsy) Hx IVDU (clean for about 1 year) Recommendation [place] [facility] IV vanco and Fortaz currently, continue for now Pain control Follow temps Follow clinical course and decide of course of Rx
--- NOTE | 2018-04-01 11:39 | P.PNNS ---
Subjective Interval history: 04/01: no changes in her pain. CT guided aspiration planned for tuesday. Physical Exam Vital signs: Vital Signs 03/31/18 12:00 03/31/18 15:56 04/01/18 00:00 Temperature 97.9 F 100.2 F H 98.2 F Pulse Rate 85 78 81 Respiratory Rate 16 16 16 Blood Pressure 109/54 L 117/62 104/67 Pulse Oximetry 95 97 04/01/18 04:00 04/01/18 08:00 04/01/18 10:39 Temperature 98.3 F 98.1 F Pulse Rate 84 94 H Respiratory Rate 18 16 18 Blood Pressure 135/58 L 138/72 Pulse Oximetry 100 100 Intake & Output 03/31/18 04/01/18 04/01/18 18:59 06:59 18:59 Intake Total 300 / 300 100 / 100 350 / 350 Balance 300 / 300 100 / 100 350 / 350 Weight 84.8 kg Intake: IV 300 / 300 100 / 100 350 / 350 Ofirmev Inj 1,000 mg In 100 ml 100 / 100 @ 400 mls/hr IV.SIG ONCE ONE Rx #:[id number] Vancomycin Inj 1,000 MG In NS 250 / 250 Inj 250 ML @ 250 mls/hr IV.SIG Q24H RUBEN Rx#:[id number] Tazicef Inj 1,000 MG In NS Inj 200 / 200 100 / 100 100 / 100 100 ML @ 200 mls/hr IV.SIG Q8H RUBEN Rx#:[id number] Other: # Voids 1 Date of Last Bowel Movement 03/31/18 Narrative: General: Well nourished. HEENT: Normocephalic, atraumatic. Normal conjunctiva. No nasal drainage. Gross hearing intact bilaterally. No ear drainage. Neck: No masses, no JVD. Trachea midline. Soft, supple, no meningismus or nuchal rigidity. Normal range of motion without pain Neuro: Awake, alert and oriented to person, place, and time. Speech is clear and fluent. Can follow single and multi-step commands without apraxia. Cranial nerve examination: pupils to be equal, round, and reactive to light. Extra-ocular movements are intact with normal convergence. Facial motor and sensory function are normal and symmetrical. Gross hearing is intact, bilaterally, to finger rub. The uvula is midline and elevates symmetrically with the soft palate. Sternocleidomastoid and deltoid muscles have normal and symmetrical strength. Other cranial nerves are intact. Deep tendon reflexes are 1+ biceps, triceps, and brachioradialis, bilaterally, in the upper extremities. In the lower extremities, the patellar and Achilles are 1+, bilaterally. There is a bilateral plantar flexion response. Cassidy s sign is negative. There is no clonus. Sensory examination is intact light touch in both the upper and lower extremities with reports of paresthesias both lateral calves and feet. Cerebellar examination normal finger to nose bilaterally. Extremities: No obvious deformities. No clubbing. No peripheral edema. No increased tone, atrophy, or fasciculations. 5/5 in all muscle groups of both upper extremities including deltoid, biceps, triceps and cemetery worker. In the lower extremities, strength is 3-4/5 in both iliopsoas with complaints of pain, 4/5 quadriceps, hamstrings with complaints of pain, 5-tibialis anterior, gastrocnemius, and extensor hallucis longus. Lumbar spine No obvious deformities. Very limited ROM due to pain. Lungs: Clear to auscultate bilaterally, nonlabored breathing on room air, no wheezing,rhonchi or crackles. No accessory muscle use. Heart: Regular rate and rhythm Abdomen: Soft, nontender. Positive bowel sounds Skin: Warm and dry, no cyanosis or erythema. Assessment and Plan - Assessment (1) Osteomyelitis of spine Code(s): M46.20 - Osteomyelitis of vertebra, site unspecified Status: Acute (2) Intractable low back pain Code(s): M54.5 - Low back pain Status: Acute (3) Discitis of lumbar region Code(s): M46.46 - Discitis, unspecified, lumbar region Status: Acute - Plan Plan: nonoperative treatment If need further tissue diagnosis, consider CT-guided aspiration for further cultures. This is planned for Tuesday. Adjust antibiotics accordingly. cont antibiotics, infectious disease management will sign off, call prn
[2018-04-01 11:56] LABS: Hepatitits B Surface Antigen Nonreactive (Nonreactive)
[2018-04-01 12:20] LABS: Hepatitis A IgM Antibody Nonreactive (Nonreactive)
--- NOTE | 2018-04-01 14:54 | P.PNIM ---
Subjective Interval history: 32-year-old female with known history of spinal abscess, history of IV drug use (subjectively clean for 1 year) who presented to the ER because of intractable back pain. Information was taken from patient and mother at bedside. Apparently her symptoms started about a month ago and they went to [facility] where she was diagnosed with a spinal abscess. They did a bone biopsy to indicate osteomyelitis, she was on 8 days of vancomycin IV while in the hospital. Patient was followed by infectious disease at that time and was discharged home on oral antibiotics to include Cipro and doxycycline. Patient did well for the first few days but then she started having progressive back pain, difficulty ambulating, unable to put on her own clothes. She indicates the pain has regressed got worse that wraps around her pelvis, paresthesia going down both lower extremities. Patient denies any loss of bowel or bladder control. Patient came to the hospital here for further evaluation. Patient had MRI performed here which did not indicate any abscess, however does indicate discitis of L4-L5. Because of that reason it was recommended that patient be admitted with neurosurgical consultation. Upon evaluating patient in the room she is laying on her side. She was continuously moaning and groaning due to pain. 03-31 Primary complaint is still lower back pain. Situation appears to be failure of outpatient treatment for spinal abscess. No recent IV drug use. Plan to screen for cardiac vegetations, but etiology is suspected to be related to past IV drug abuse, patient has been free of drugs for between 2 and 3 years. 04-[address] GUIDED ASPIRATION OF BACK ABSCESS ON TUESDAY DW RN AND PT AND CM CONTINUE PAIN CONTROL PROBABLE FAILURE OF OUTPT TREATMENT/POOR COMPLIANCE Physical Exam Vital signs: Vital Signs 03/31/18 15:56 04/01/18 00:00 04/01/18 04:00 Temperature 100.2 F H 98.2 F 98.3 F Pulse Rate 78 81 84 Respiratory Rate 16 16 18 Blood Pressure 117/62 104/67 135/58 L Pulse Oximetry 97 100 04/01/18 08:00 04/01/18 10:39 04/01/18 11:46 Temperature 98.1 F Pulse Rate 94 H Respiratory Rate 16 18 18 Blood Pressure 138/72 Pulse Oximetry 100 04/01/18 12:00 Temperature 97.8 F Pulse Rate 81 Respiratory Rate 16 Blood Pressure 134/60 Pulse Oximetry 95 Intake & Output 03/31/18 04/01/18 04/01/18 18:59 06:59 18:59 Intake Total 300 / 300 100 / 100 350 / 350 Balance 300 / 300 100 / 100 350 / 350 Weight 84.8 kg Intake: IV 300 / 300 100 / 100 350 / 350 Ofirmev Inj 1,000 mg In 100 ml 100 / 100 @ 400 mls/hr IV.SIG ONCE ONE Rx #:[id number] Vancomycin Inj 1,000 MG In NS 250 / 250 Inj 250 ML @ 250 mls/hr IV.SIG Q24H RUBEN Rx#:[id number] Tazicef Inj 1,000 MG In NS Inj 200 / 200 100 / 100 100 / 100 100 ML @ 200 mls/hr IV.SIG Q8H RUBEN Rx#:[id number] Other: # Voids 1 Date of Last Bowel Movement 03/31/18 Narrative: GENERAL: NAD, A&Ox3 HEAD: Normocephalic. NECK: Supple, trachea midline. No lymphadenopathy. EYES: No scleral icterus. No injection or drainage. CARDIOVASCULAR: Regular rate and rhythm without murmurs, gallops, or rubs. S1, S2 NO S3 OR S4 RESPIRATORY: Breath sounds equal bilaterally. No accessory muscle use. GASTROINTESTINAL: Abdomen soft, non-tender, nondistended. MUSCULOSKELETAL: No cyanosis, or edema. Decreased range of motion at lower back due to pain. SKIN: Warm and dry. NEURO: No focal neurological deficits. Results - Labs CBC & Chem 7: 04/01/18 07:07 04/01/18 07:07 Laboratory Results - last 24 hr 04/01/18 04/01/18 04/01/18 07:07 07:07 10:38 WBC 6.6 RBC 4.09 Hgb 9.5 L Hct 29.3 L MCV 71.7 L MCH 23.3 L MCHC 32.5 RDW 18.4 H Plt Count 377 MPV 7.3 Neut % (Auto) 62.0 Lymph % (Auto) 25.2 [place] % (Auto) 8.6 H Eos % (Auto) 3.5 Baso % (Auto) 0.7 Neut # (Auto) 4.1 Lymph # (Auto) 1.7 [place] # (Auto) 0.6 Eos # (Auto) 0.2 Baso # (Auto) 0.0 WBC Differential . Differential Comment Auto diff final Sodium 139 Potassium 4.1 Chloride 106 Carbon Dioxide 25.2 Anion Gap 8 BUN 11 Creatinine 0.70 Estimated GFR Greater than 89 Random Glucose 93 Calcium 8.3 L Total Bilirubin 0.2 AST 17 ALT 17 Alkaline Phosphatase 89 Total Protein 7.4 D Albumin 2.9 L Hepatitis A IgM Ab Nonreactive Hep Bs Antigen Nonreactive Hep B Core IgM Ab Nonreactive Hep C IgG Ab Reactive H Microbiology 03/29/18 14:00 Blood - Peripheral Aerobic Blood Culture - Preliminary No growth in 3 days 03/29/18 14:00 Blood - Peripheral Anaerobic Blood Culture - Preliminary No growth in 3 days 03/29/18 13:45 Blood - Peripheral Aerobic Blood Culture - Preliminary No growth in 3 days 03/29/18 13:45 Blood - Peripheral Anaerobic Blood Culture - Preliminary No growth in 3 days - Imaging Lumbar Spine MRI 03/29/18 13:34 CONCLUSION: Assessment and Plan - Assessment (1) Intractable low back pain Code(s): M54.5 - Low back pain Status: Acute (2) Discitis of lumbar region Code(s): M46.46 - Discitis, unspecified, lumbar region Status: Acute - Plan 32-year-old female admitted secondary to spinal abscess. Spinal osteomyelitis Discitis Outpatient treatment failure Ciprofloxacin and doxycycline failed as an outpatient p.o. treatment Discitis at L4/L5 Continue vancomycin ID following Neurosurgery following Continue pain treatments with Percocet MS Contin added General anxiety disorder Panic attack disorder Exacerbated given current situation Xanax as needed Klonopin 3 times daily DVT prevention Lovenox Code Status: FULL CODE Discussed Condition With: RN AND PT Discharge Planning: ONCE DIAGNOSIS AND LENGTH OF ANTIBIOTICS DETERMINED
--- NOTE | 2018-04-01 18:51 | ECHRPT ---
Indication: Hypertensive heart disease, Endocarditis CONCLUSIONS Normal left ventricular size. Wall thickness is normal. The left ventricular systolic function is no rmal with an estimated ejection fraction in the range of 55-60%. No regional wall motion abnormalities are prese nt. Technically good study. No evidence for endocarditis. [id number] mitral valve regurgitation. There is trace tricuspid valve regurgitation. The estimated pulmonary arterial pressure is 29 mmHg. BP: / HR: Rhythm: MEASUREMENTS (Male / Female) Normal Values Technical Quality:Fair 2D ECHO LV Diastolic Diameter PLAX 5.0 cm 4.2 - 5.9 / 3.9 - 5.3 cm LV Systolic Diameter PLAX 3.8 cm IVS Diastolic Thickness 1.0 cm 0.6 - 1.0 / 0.6 - 0.9 cm LVPW Diastolic Thickness 0.9 cm 0.6 - 1.0 / 0.6 - 0.9 cm LV Relative Wall Thickness 0.4 RV Internal Dim ED PLAX 2.5 cm LVOT Diameter 2.1 cm LA Systolic Diameter LX 3.2 cm 3.0 - 4.0 / 2.7 - 3.8 cm M-MODE Aortic Root Diameter MM 2.9 cm LA Systolic Diameter MM 3.7 cm LA Ao Ratio MM 1.3 AV Cusp Separation MM 2.0 cm DOPPLER AV Peak Velocity 162.0 cm/s AV Peak Gradient 10.5 mmHg LVOT Peak Velocity 96.3 cm/s LVOT Peak Gradient 3.7 mmHg AV Area Cont Eq pk 2.1 cm MV Area PHT 4.5 cm Mitral E Point Velocity 97.7 cm/s Mitral A Point Velocity 52.8 cm/s Mitral E to A Ratio 1.9 LV E' Lateral Velocity 14.6 cm/s Mitral E to LV E' Lateral Ratio 6.7 LV E' Septal Velocity 11.2 cm/s Mitral E to LV E' Septal Ratio 8.7 TR Peak Velocity 220.0 cm/s TR Peak Gradient 19.4 mmHg Right Atrial Pressure 10.0 mmHg Pulmonary Artery Systolic Pressu 29.4 mmHg Right Ventricular Systolic Press 29.4 mmHg FINDINGS LEFT VENTRICLE Normal left ventricular size. Wall thickness is normal. The left ventricular systolic function is no rmal with an estimated ejection fraction in the range of 55-60%. No regional wall motion abnormalities are prese nt. RIGHT VENTRICLE Normal right ventricular size and systolic function. LEFT ATRIUM The left atrial size is normal. RIGHT ATRIUM The right atrial size is normal. ATRIAL SEPTUM Normal atrial septal thickness without atrial level shunting by limited color doppler interrogation. AORTA The aortic root and proximal ascending aorta are normal in size on limited imaging. MITRAL VALVE Gohtu-gv-hdug mitral valve regurgitation. AORTIC VALVE Trileaflet aortic valve. No aortic valve stenosis or regurgitation. TRICUSPID VALVE Structurally normal tricuspid valve. There is trace tricuspid valve regurgitation. The estimated pulmonary arterial pressure is 29 mmHg. PULMONARY VALVE Trivial pulmonary valve regurgitation. VESSELS The inferior vena cava is normal in size. PERICARDIUM No pericardial effusion. Eugene Moran MD (Electronically Signed) Final Date:01 April 2018 18:50
[2018-04-01] MEDS: Enoxaparin Inj 40 MG/0.4 ML Syringe SQ SCH (20:11)
[2018-04-01] MEDS: Vancomycin Inj 1,000 MG in Sodium Chlor 0.9% Inj 250 ML IV.SIG SCH (20:16)
[2018-04-01] MEDS: Temazepam 15 MG Capsule PO PRN (22:19)
[2018-04-02] MEDS: HYDROmorphone PF Inj 2 MG/ML Vial IV.PUSH PRN ×3 (01:37→13:44)
[2018-04-02] MEDS: oxyCODONE/Acetaminophen 10/325 Tablet PO PRN ×3 (06:30→16:45)
[2018-04-02 07:14] LABS: INR 0.9 Ratio; Prothrombin Time 9.6 sec (9.8-11.6)
[2018-04-02] MEDS: clonazePAM 0.5 MG Tablet PO SCH ×3 (07:18→22:41)
[2018-04-02 07:45] LABS: Albumin 3.1 g/dL (3.4-5.0); Anion Gap 7 meq/L (5-15); Aspartate Aminotransferase 14 U/L (15-37); Blood Urea Nitrogen 9 mg/dL (7-18); Calcium 8.2 mg/dL (8.5-10.1); Carbon Dioxide 26.2 meq/L (21.0-32.0); Chloride 105 meq/L (98-107); Glomerular Filtration Rate Greater Than 89 mL/min (>89); Glucose,Random 91 mg/dL (74-106); Magnesium 2.1 mg/dL (1.5-2.5); Potassium 4.3 meq/L (3.5-5.1)
[2018-04-02 07:48] LABS: Sodium 138 meq/L (136-145)
[2018-04-02 07:55] LABS: Alanine Aminotransferase 14 U/L (10-53); Alkaline Phosphatase 94 U/L (45-117); Free T4 (Free Thyroxine) 1.13 ng/dL (0.76-1.46); Phosphorus 4.3 mg/dL (2.5-4.9); Total Protein 7.5 g/dL (6.4-8.2)
[2018-04-02] MEDS: Lidocaine 5% Patch T-DERMAL SCH (08:28)
[2018-04-02] MEDS: Morphine Sulfate 30 MG SR Tablet PO SCH ×2 (08:28→22:41)
[2018-04-02] MEDS: Gabapentin 300 MG Capsule PO SCH ×3 (08:28→19:31)
[2018-04-02 09:32] LABS: Baso # (Auto) 0.1 th/mm3 (0.0-0.2); Baso % (Auto) 0.8 % (0.0-2.0); Eos # (Auto) 0.2 th/mm3 (0.0-0.4); Eos % (Auto) 2.7 % (0.0-4.0); Hematocrit 29.7 % (35.0-46.0); Hemoglobin 9.7 gm/dL (11.6-15.3); Lymph # (Auto) 1.3 th/mm3 (1.0-4.8); Lymph % (Auto) 20.8 % (9.0-44.0); Mean Corpuscular HGB Conc 32.5 % (32.0-36.0); Mean Corpuscular Hemoglobin 23.3 pg (27.0-34.0); Mean Corpuscular Volume 71.7 fL (80.0-100.0); Mean Platelet Volume 7.3 fL (7.0-11.0); Mono # (Auto) 0.4 th/mm3 (0.0-0.9); Mono % (Auto) 7.3 % (0.0-8.0); Neut # (Auto) 4.2 th/mm3 (1.8-7.7); Neut % (Auto) 68.4 % (16.0-70.0); Platelet Count 355 th/mm3 (150-450); Red Blood Count 4.14 mil/mm3 (4.00-5.30); Red Cell Distribution Width 18.3 % (11.6-17.2); White Blood Count 6.1 th/mm3 (4.0-11.0)
[2018-04-02] MEDS ORDERED: Polyethylene Glycol 3350 17 GM Packet PO ONE (11:02)
[2018-04-02 11:28] LABS: Hemoglobin A1c 5.6 % (4.3-6.0)
[2018-04-02] MEDS ORDERED: Methocarbamol 500 MG Tablet PO ONE (14:00)
--- NOTE | 2018-04-02 14:21 | P.PN ---
Subjective Interval history: Follow-up on patient with history of spinal abscess, L45 discitis, history of IV drug use clean for the past 2 years. Patient seen and examined. Patient complaining of debilitating muscle spasms in her low back otherwise states her current pain medication regimen is working well. She has been unable to get any rest due to muscle spasms and is very limited in her ability to ambulate. She denies any fever or chills. Denies any chest pain or shortness of breath. She continues to have numbness and tingling in both legs extending down to the feet. She denies any bowel movement in the past 2 days. She is urinating without any difficulties. Physical Exam Vital signs: Vital Signs 04/01/18 14:49 04/01/18 15:56 04/01/18 16:00 Temperature 98.3 F Pulse Rate 92 H Respiratory Rate 18 18 16 Blood Pressure 123/60 Pulse Oximetry 99 04/01/18 21:15 04/01/18 23:00 04/02/18 00:00 Temperature 99.3 F 99 F Pulse Rate 87 80 Respiratory Rate 17 18 16 Blood Pressure 138/66 128/68 Pulse Oximetry 98 100 04/02/18 05:00 04/02/18 08:00 04/02/18 12:00 Temperature 98.8 F 98.1 F 98.3 F Pulse Rate 80 79 86 Respiratory Rate 19 16 14 Blood Pressure 139/66 112/55 L 135/73 Pulse Oximetry 100 98 98 Intake & Output 04/01/18 04/02/18 04/02/18 18:59 06:59 18:59 Intake Total 450 / 450 1999 / 1999 Balance 450 / 450 1999 Weight 85 kg Intake: IV 450 / 450 100 / 100 Vancomycin Inj 1,000 MG In NS 250 / 250 Inj 250 ML @ 250 mls/hr IV.SIG Q24H RUBEN Rx#:[id number] Tazicef Inj 1,000 MG In NS Inj 200 / 200 100 / 100 100 ML @ 200 mls/hr IV.SIG Q8H RUBEN Rx#:[id number] Oral 1899 / 1900 Other: # Voids 7 4 Date of Last Bowel Movement 04/01/18 # Bowel Movements 0 Narrative: GENERAL: This is a well-developed, well-nourished female, in no acute distress. Awake and alert. Sitting up in bedside chair. SKIN: Warm and dry. No generalized rash. HEAD: Atraumatic. Normocephalic. EYES: Pupils equal and round. No scleral icterus. No injection or drainage. ENT: No nasal bleeding or discharge. Mucous membranes pink and moist. NECK: Trachea midline. No JVD. CARDIOVASCULAR: Regular rate and rhythm. RESPIRATORY: No accessory muscle use. Clear to auscultation. Breath sounds equal bilaterally. GASTROINTESTINAL: Abdomen soft, non-tender, nondistended. +BS. MUSCULOSKELETAL: Extremities without clubbing, cyanosis, or edema. No obvious deformities. NEUROLOGICAL: Awake and alert. No obvious cranial nerve deficits. Able to move all extremities spontaneously. Decreased range of motion in all planes lumbar spine. Motor function grossly intact in bilateral lower extremities. Normal speech. PSYCHIATRIC: Appropriate mood and affect; insight and judgment normal. Results - Labs CBC & Chem 7: 04/02/18 08:31 04/02/18 06:06 Laboratory Results - last 24 hr 04/02/18 04/02/18 04/02/18 06:06 06:06 08:31 WBC 6.1 RBC 4.14 Hgb 9.7 L Hct 29.7 L MCV 71.7 L MCH 23.3 L MCHC 32.5 RDW 18.3 H Plt Count 355 MPV 7.3 Neut % (Auto) 68.4 Lymph % (Auto) 20.8 [place] % (Auto) 7.3 Eos % (Auto) 2.7 Baso % (Auto) 0.8 Neut # (Auto) 4.2 Lymph # (Auto) 1.3 [place] # (Auto) 0.4 Eos # (Auto) 0.2 Baso # (Auto) 0.1 WBC Differential . Differential Comment Auto diff final PT 9.6 L INR 0.9 Sodium 138 Potassium 4.3 Chloride 105 Carbon Dioxide 26.2 Anion Gap 7 BUN 9 Creatinine 0.67 Estimated GFR Greater than 89 Random Glucose 91 Hemoglobin A1c Calcium 8.2 L Phosphorus 4.3 Magnesium 2.1 Total Bilirubin 0.1 L AST 14 L ALT 14 Alkaline Phosphatase 94 Total Protein 7.5 Albumin 3.1 L TSH 1.200 Free T4 1.13 04/02/18 08:31 WBC RBC Hgb Hct MCV MCH MCHC RDW Plt Count MPV Neut % (Auto) Lymph % (Auto) [place] % (Auto) Eos % (Auto) Baso % (Auto) Neut # (Auto) Lymph # (Auto) [place] # (Auto) Eos # (Auto) Baso # (Auto) WBC Differential Differential Comment PT INR Sodium Potassium Chloride Carbon Dioxide Anion Gap BUN Creatinine Estimated GFR Random Glucose Hemoglobin A1c 5.6 Calcium Phosphorus Magnesium Total Bilirubin AST ALT Alkaline Phosphatase Total Protein Albumin TSH Free T4 Microbiology 03/29/18 14:00 Blood - Peripheral Aerobic Blood Culture - Preliminary No growth in 4 days 03/29/18 14:00 Blood - Peripheral Anaerobic Blood Culture - Preliminary No growth in 4 days 03/29/18 13:45 Blood - Peripheral Aerobic Blood Culture - Preliminary No growth in 4 days 03/29/18 13:45 Blood - Peripheral Anaerobic Blood Culture - Preliminary No growth in 4 days Assessment and Plan - Assessment (1) Intractable low back pain Code(s): M54.5 - Low back pain Status: Acute (2) Discitis of lumbar region Code(s): M46.46 - Discitis, unspecified, lumbar region Status: Acute - Plan 32-year-old female admitted secondary to spinal abscess. Spinal osteomyelitis Discitis L4-L5 Outpatient treatment failure Ciprofloxacin and doxycycline failed as an outpatient p.o. treatment MRI lumbar spine shows discitis at L4-5 with abnormal thickening and enhancement in the anterior epidural region with mass-effect on the anterior thecal sac with surrounding soft tissue swelling and edema Echo negative for vegetation Blood cultures with no growth 4 days ID following, appreciate assistance Continue IV vancomycin and Fortaz per ID Plan for CT-guided aspiration on Tuesday Neurosurgery following, no surgical intervention at this time. They have signed off. Continue pain treatments with Percocet and MS Contin Continue on Neurontin 300 mg p.o. 3 times daily Begin Robaxin 1000mg IV every 8 hours for muscle spasms Continue participation with physical therapy General anxiety disorder Panic attack disorder Exacerbated given current situation Xanax as needed Klonopin 3 times daily Hepatitis C LFTs WNL Standard precautions Patient will need to follow-up with GI as outpatient Hx of IVDU Patient has been clean for 2 years DVT prophylaxis Lovenox Discussed Condition With: patient, nursing staff and Dr. Sharpe Discharge Planning: Not ready for discharge. Workup in progress. Discharge pending clinical improvement, results of CT-guided aspiration/biopsy and ID clearance.
[2018-04-02] MEDS: Methocarbamol Inj 1,000 MG in Sodium Chlor 0.9% Inj 240 ML IV.SIG SCH ×2 (14:48→22:43)
[2018-04-02] MEDS: Senna/Docusate Sodium 8.6/50 MG Tablet PO SCH ×2 (14:48→22:43)
[2018-04-02] MEDS: Enoxaparin Inj 40 MG/0.4 ML Syringe SQ SCH (20:19)
[2018-04-02] MEDS: Vancomycin Inj 1,000 MG in Sodium Chlor 0.9% Inj 250 ML IV.SIG SCH (20:20)
[2018-04-02] MEDS: Temazepam 15 MG Capsule PO PRN (22:45)
[2018-04-03] MEDS: oxyCODONE/Acetaminophen 10/325 Tablet PO PRN ×4 (02:00→20:36)
[2018-04-03] MEDS: Methocarbamol Inj 1,000 MG in Sodium Chlor 0.9% Inj 240 ML IV.SIG SCH ×3 (06:13→21:57)
[2018-04-03] MEDS: clonazePAM 0.5 MG Tablet PO SCH ×3 (06:13→21:54)
--- NOTE | 2018-04-03 07:43 | P.PN ---
Subjective Interval history: Follow up on patient with history of spinal abscess, L45 discitis, history of IV drug use clean for the past 2 years. Patient seen and examined. Patient is having severe back pain and spasms. She is basically unable to move in the bed. She reports her back is "locked". She has not had vascular access since yesterday morning. She has not received any of her IV antibiotics, pain medications or muscle relaxants. She is lying in the bed tearful and begging for me not to move her legs. She denies any fever or chills. She denies any chest pain or shortness of breath. Physical Exam Vital signs: Vital Signs 04/02/18 08:00 04/02/18 12:00 04/02/18 16:00 Temperature 98.1 F 98.3 F 98.4 F Pulse Rate 79 86 85 Respiratory Rate 16 14 14 Blood Pressure 112/55 L 135/73 116/56 L Pulse Oximetry 98 98 99 04/02/18 21:00 04/03/18 00:00 04/03/18 04:20 Temperature 98.7 F 97.6 F 98.8 F Pulse Rate 90 80 88 Respiratory Rate 17 16 18 Blood Pressure 120/80 128/66 Pulse Oximetry 98 99 99 04/03/18 06:10 Temperature Pulse Rate Respiratory Rate 9 L Blood Pressure Pulse Oximetry Intake & Output 04/02/18 04/03/18 04/03/18 18:59 06:59 18:59 Intake Total 1500 / 1500 Balance 1500 / 1500 Weight 85.5 kg Intake: Oral 1500 / 1500 Other: # Voids 8 3 # Bowel Movements 1 0 # Incontinent Bowel Movements 0 Narrative: GENERAL: This is a well-developed, well-nourished female, in mild distress secondary to low back pain and muscle spasms. Awake and alert. Lying in bed, tearful. SKIN: Warm and dry. No generalized rash. HEAD: Atraumatic. Normocephalic. EYES: Pupils equal and round. No scleral icterus. No injection or drainage. ENT: No nasal bleeding or discharge. Mucous membranes pink and moist. NECK: Trachea midline. No JVD. CARDIOVASCULAR: Regular rate and rhythm. RESPIRATORY: No accessory muscle use. Clear to auscultation. Breath sounds equal bilaterally. GASTROINTESTINAL: Abdomen soft, non-tender, nondistended. +BS. MUSCULOSKELETAL: Extremities without clubbing, cyanosis, or edema. No obvious deformities. NEUROLOGICAL: Awake and alert. No obvious cranial nerve deficits. Unable to test range of motion in lumbar spine secondary to pain and muscle spasms. Patient is fearful to move her lower extremities secondary to increasing her low back pain. Normal speech. PSYCHIATRIC: Upset, tearful. Appropriate mood and affect; insight and judgment normal. Results - Labs CBC & Chem 7: 04/02/18 08:31 04/02/18 06:06 Laboratory Results - last 24 hr 04/02/18 04/02/18 04/02/18 06:06 08:31 08:31 WBC 6.1 RBC 4.14 Hgb 9.7 L Hct 29.7 L MCV 71.7 L MCH 23.3 L MCHC 32.5 RDW 18.3 H Plt Count 355 MPV 7.3 Neut % (Auto) 68.4 Lymph % (Auto) 20.8 [place] % (Auto) 7.3 Eos % (Auto) 2.7 Baso % (Auto) 0.8 Neut # (Auto) 4.2 Lymph # (Auto) 1.3 [place] # (Auto) 0.4 Eos # (Auto) 0.2 Baso # (Auto) 0.1 WBC Differential . Differential Comment Auto diff final Sodium 138 Potassium 4.3 Chloride 105 Carbon Dioxide 26.2 Anion Gap 7 BUN 9 Creatinine 0.67 Estimated GFR Greater than 89 Random Glucose 91 Hemoglobin A1c 5.6 Calcium 8.2 L Phosphorus 4.3 Magnesium 2.1 Total Bilirubin 0.1 L AST 14 L ALT 14 Alkaline Phosphatase 94 Total Protein 7.5 Albumin 3.1 L TSH 1.200 Free T4 1.13 Microbiology 03/29/18 14:00 Blood - Peripheral Aerobic Blood Culture - Preliminary No growth in 4 days 03/29/18 14:00 Blood - Peripheral Anaerobic Blood Culture - Preliminary No growth in 4 days 03/29/18 13:45 Blood - Peripheral Aerobic Blood Culture - Preliminary No growth in 4 days 03/29/18 13:45 Blood - Peripheral Anaerobic Blood Culture - Preliminary No growth in 4 days - Imaging Lumbar Spine MRI 03/29/18 13:34 CONCLUSION: Assessment and Plan - Assessment (1) Intractable low back pain Code(s): M54.5 - Low back pain Status: Acute (2) Discitis of lumbar region Code(s): M46.46 - Discitis, unspecified, lumbar region Status: Acute - Plan 32-year-old female admitted secondary to spinal abscess. Spinal osteomyelitis Discitis L4-L5 Outpatient treatment failure Patient has been without vascular access since yesterday morning and as a result has not received any of her IV antibiotics, pain medications or muscle relaxants Scheduled for CT guided aspiration today Give dose of po Dilaudid and Flexeril x 1 now. Awaiting vascular access to resume IV antibiotics. Ciprofloxacin and doxycycline failed as an outpatient p.o. treatment MRI lumbar spine shows discitis at L4-5 with abnormal thickening and enhancement in the anterior epidural region with mass-effect on the anterior thecal sac with surrounding soft tissue swelling and edema Echo negative for vegetation Blood cultures with no growth 4 days ID following, appreciate assistance Continue IV vancomycin and Fortaz per ID - patient has missed multiple doses secondary to no vascular access since yesterday Neurosurgery following, no surgical intervention at this time. They have signed off. Continue pain treatments with Percocet and MS Contin Continue on Neurontin 300 mg p.o. 3 times daily Robaxin 1000mg IV every 8 hours for muscle spasms Continue participation with physical therapy General anxiety disorder Panic attack disorder Exacerbated given current situation Xanax as needed Klonopin 3 times daily Hepatitis C LFTs WNL Standard precautions Patient will need to follow-up with GI as outpatient Hx of IVDU Patient has been clean for 2 years DVT prophylaxis Lovenox Discussed Condition With: Patient, nursing staff Discharge Planning: Not ready for discharge. Workup in progress. Discharge pending clinical improvement, results of CT-guided aspiration/biopsy and ID clearance.
[2018-04-03] MEDS: Morphine Sulfate 30 MG SR Tablet PO SCH ×2 (08:52→21:54)
[2018-04-03] MEDS: Gabapentin 300 MG Capsule PO SCH ×3 (08:52→18:49)
[2018-04-03] MEDS: Lidocaine 5% Patch T-DERMAL SCH (08:53)
[2018-04-03] MEDS: Senna/Docusate Sodium 8.6/50 MG Tablet PO SCH ×2 (08:53→20:37)
[2018-04-03] MEDS ORDERED: fentaNYL Citrate Inj 250 MCG/5 ML Ampul ONE (11:01)
--- NOTE | 2018-04-03 11:48 | P.RAD ---
Post Procedure Progress Note - Pre Procedure Diagnosis (1) Discitis of lumbar region - Post Procedure Diagnosis (1) Discitis of lumbar region - Procedure Information Procedure Date: 04/03/18 Supervising Radiologist: Bonifacio Hester MD Estimated blood loss (mL): 0 Anesthesia: Local, Conscious Sedation - Plan of Activity Patient to Unit: Nursing Unit Patient Condition: Fair Additional Comments: L4/L5 disc aspiration completed. Full dictated report to follow See PACS Report for procedural detail/treatment.
--- NOTE | 2018-04-03 13:02 | IR ---
EXAM DATE: 04/03/2018 12:07 PM EDT AGE/SEX: 32 years / Female INDICATIONS: Patient with L4-5 discitis in need of aspiration. CLINICAL DATA: This is the patient's initial encounter. Patient reports that signs and symptoms have been present for 3 weeks and indicates a pain score of 10/10. MEDICAL/SURGICAL HISTORY: IVDU, Osteomyelitis section. Tubal ligation. COMPARISON: No prior exams available for comparison. FLUORO TIME (min): 4.5 IMAGE SERIES: 3 SEDATION TIME (min): 30 MEDICATION(S): 5mg midazolam (Versed) IV 250mcg fentanyl (Sublimaze) IV DEVICE(s): 20 gauge x6in needle SPECIMEN(S): Core specimen(s) obtained and submitted to laboratory for pathologic evaluation. . . PROCEDURE: 1. Fluoroscopically guided needle biopsy. 2. Conscious sedation with continuous EKG and Oximetry monitoring. The risks, benefits and alternatives to the procedure were explained and verbal and written consent w as obtained. The site was prepped in sterile fashion. Full sterile technique was used, including cap, mask, steri le gloves and gown and a large sterile sheet. Hand hygiene and 2% chlorhexidine and/or betadine/alco hol prep was utilized per protocol for cutaneous antisepsis. The skin and subcutaneous tissues were infiltrated with local anesthetic solution. With fluoroscopic guidance a 20-gauge needle was advanced down into the disc space at the L4/5 disc l evel. 2 20-gauge aspiration biopsies were obtained. Small disc fragments were evident. These were sen t to pathology for evaluation.. Conscious sedation was performed with the prescribed dosages and duration as above in the presence of an independent trained radiology nurse to assist in the monitoring of the patient. EKG and oximetry remained stable throughout the procedure. CONCLUSION: 1. Uncomplicated needle biopsy of the L4/L5 disc as above. Electronically signed by: Bonifacio Hester MD 04/03/2018 1:00 PM EDT
--- NOTE | 2018-04-03 13:05 | IR ---
INDICATIONS: Patient with L4-5 discitis in need of IV access for aspiration. CLINICAL DATA: This is the patient's initial encounter. Patient reports that signs and symptoms have been present for 3 weeks and indicates a pain score of 10/10. Location: , Laterality: MEDICAL/SURGICAL HISTORY: IVDU, Osteomyelitis section. Tubal ligation. COMPARISON: No prior exams available for comparison. FLUORO TIME (min): IMAGE SERIES: 1 ACCESS SITE: SEDATION TIME (min): CONTRAST (cc): MEDICATION(S): DEVICE(S): 3/4 Dilator brachial vein. PROCEDURE : 1. Ultrasound guided venous access. The risks, benefits and alternatives to the procedure were explained and verbal and written consent w as obtained. The site was prepped in sterile fashion. Full sterile technique was used, including ca p, mask, sterile gloves and gown and a large sterile sheet. Hand hygiene and 2% chlorhexidine and/or betadine/alcohol prep was utilized per protocol for cutaneous antisepsis. Sterile gel and sterile p robe cover were utilized for ultrasound guidance. The skin and subcutaneous tissues were infiltrate d with local anesthetic solution. With ultrasound guidance the brachial vein was punctured for venous access. A [address] aced and was flushed and locked with heparin. The patient tolerated procedure well and there were no complications. CONCLUSION: 1. Uncomplicated ultrasound guided venous access. Electronically signed by: Bonifacio Hester MD 04/03/2018 1:04 PM EDT
[2018-04-03] MEDS: HYDROmorphone PF Inj 2 MG/ML Vial IV.PUSH PRN ×3 (14:43→23:40)
[2018-04-03] MEDS: Vancomycin Inj 1,000 MG in Sodium Chlor 0.9% Inj 250 ML IV.SIG SCH ×2 (20:35→22:00)
[2018-04-04] MEDS: oxyCODONE/Acetaminophen 10/325 Tablet PO PRN ×5 (01:09→22:29)
[2018-04-04] MEDS: HYDROmorphone PF Inj 2 MG/ML Vial IV.PUSH PRN ×5 (06:12→23:44)
[2018-04-04] MEDS: Methocarbamol Inj 1,000 MG in Sodium Chlor 0.9% Inj 240 ML IV.SIG SCH (06:13)
[2018-04-04] MEDS: clonazePAM 0.5 MG Tablet PO SCH ×3 (06:29→21:16)
[2018-04-04] MEDS: Senna/Docusate Sodium 8.6/50 MG Tablet PO SCH ×2 (09:09→22:11)
[2018-04-04] MEDS: Lidocaine 5% Patch T-DERMAL SCH (09:10)
[2018-04-04] MEDS: Gabapentin 300 MG Capsule PO SCH ×3 (09:10→17:04)
[2018-04-04] MEDS: Morphine Sulfate 30 MG SR Tablet PO SCH ×2 (09:19→21:15)
--- NOTE | 2018-04-04 10:01 | P.PN ---
Subjective Interval history: Follow up on patient with history of spinal abscess, L45 discitis, history of IV drug use clean for the past 2 years. Patient seen and examined. s/p CT guided bx yesterday. She denies any fever or chills. Patient complaints of severe muscle spasms and increased back pain. She has not been receiving any muscle relaxants. She is wearing a lumbar brace and states it is worsening her back pain. She complains of increasing muscle distention and reports only small hard bowel movement yesterday. She states her 4th IV is not working. She denies any dysuria. Physical Exam Vital signs: Vital Signs 04/03/18 11:55 04/03/18 12:10 04/03/18 12:40 Temperature 99.2 F Pulse Rate 66 66 65 Respiratory Rate 20 20 16 Blood Pressure 116/64 125/66 108/62 Pulse Oximetry 97 100 100 04/03/18 12:55 04/03/18 15:12 04/03/18 16:00 Temperature 98.1 F Pulse Rate 74 66 96 H Respiratory Rate 16 20 20 Blood Pressure 99/55 L 125/66 122/69 Pulse Oximetry 100 99 04/03/18 16:59 04/03/18 20:00 04/04/18 00:00 Temperature 98.1 F 99.2 F 98.3 F Pulse Rate 96 H 102 H 86 Respiratory Rate 20 18 18 Blood Pressure 122/69 160/63 H 114/56 L Pulse Oximetry 99 99 99 04/04/18 04:00 04/04/18 08:00 Temperature 98.5 F 98.0 F Pulse Rate 88 76 Respiratory Rate 18 12 Blood Pressure 130/60 121/63 Pulse Oximetry 99 99 Intake & Output 04/03/18 04/04/18 04/04/18 18:59 06:59 18:59 Intake Total 1460 / 1460 350 / 350 350 / 350 Balance 1460 / 1460 350 / 350 350 / 350 Weight 85.9 kg Intake: IV 700 / 700 350 / 350 350 / 350 Robaxin Inj 1,000 MG In NS Inj 250 / 250 250 / 250 240 ML @ 500 mls/hr IV.SIG Q8HR RUBEN Rx#:[id number] Vancomycin Inj 1,000 MG In NS 250 / 250 250 / 250 Inj 250 ML @ 250 mls/hr IV.SIG Q24H RUBEN Rx#:[id number] Tazicef Inj 1,000 MG In NS Inj 200 / 200 100 / 100 100 / 100 100 ML @ 200 mls/hr IV.SIG Q8H RUBEN Rx#:[id number] Oral 760 / 760 Other: # Voids 3 Narrative: GENERAL: This is a well-developed, well-nourished female, in mild distress secondary to low back pain and muscle spasms. Awake and alert. Sitting up in bedside chair. Mother is at the bedside. SKIN: Warm and dry. No generalized rash. HEENT: Atraumatic. Normocephalic. Pupils equal and round. No scleral icterus. No injection or drainage. No nasal bleeding or discharge. Mucous membranes pink and moist. NECK: Trachea midline. No JVD. CARDIOVASCULAR: Regular rate and rhythm. RESPIRATORY: No accessory muscle use. Clear to auscultation. Breath sounds equal bilaterally. GASTROINTESTINAL: Abdomen soft, non-tender, +distended. Hypoactive BS. MUSCULOSKELETAL: Extremities without clubbing, cyanosis, or edema. No obvious deformities. NEUROLOGICAL: Awake and alert. No obvious cranial nerve deficits. Unable to test range of motion in lumbar spine secondary to pain and muscle spasms. Patient is fearful to move her lower extremities secondary to increasing her low back pain. Normal speech. PSYCHIATRIC: Upset, tearful. Appropriate mood and affect; insight and judgment normal. Results - Labs CBC & Chem 7: 04/02/18 08:31 04/02/18 06:06 Microbiology 04/03/18 11:37 Tissue - Other Gram Stain - Final 04/03/18 11:37 Tissue - Other Fungal Smear - Final No fungal elements seen 03/29/18 14:00 Blood - Peripheral Aerobic Blood Culture - Final No growth in 5 days 03/29/18 14:00 Blood - Peripheral Anaerobic Blood Culture - Final No growth in 5 days 03/29/18 13:45 Blood - Peripheral Aerobic Blood Culture - Final No growth in 5 days 03/29/18 13:45 Blood - Peripheral Anaerobic Blood Culture - Final No growth in 5 days - Imaging Impressions Guidance Ultrasound 04/03/18 00:00 CONCLUSION: 1. Uncomplicated ultrasound guided venous access. Needle Biopsy/Aspiration X-Ray 04/03/18 00:00 CONCLUSION: 1. Uncomplicated needle biopsy of the L4/L5 disc as above. Assessment and Plan - Assessment (1) Intractable low back pain Code(s): M54.5 - Low back pain Status: Acute (2) Discitis of lumbar region Code(s): M46.46 - Discitis, unspecified, lumbar region Status: Acute - Plan 32-year-old female admitted secondary to spinal abscess. Spinal osteomyelitis Discitis L4-L5 Outpatient treatment failure Ciprofloxacin and doxycycline failed as an outpatient p.o. treatment MRI lumbar spine shows discitis at L4-5 with abnormal thickening and enhancement in the anterior epidural region with mass-effect on the anterior thecal sac with surrounding soft tissue swelling and edema Echo negative for vegetation Blood cultures with no growth 4 days 04/[address] guided bx, cx pending ID following, appreciate assistance. Discussed with Dr. Madera - yao for PICC line placement. Continue IV vancomycin and Fortaz per ID Neurosurgery following, no surgical intervention at this time. They have signed off. Continue pain treatments with Percocet and MS Contin Continue on Neurontin 300 mg p.o. 3 times daily Continue participation with physical therapy D/C IV Robaxin. Flexeril 5mg po now x 1 dose then TID prn muscle spasms. Abdominal discomfort, suspect constipation Obtain KUB Dulcolax suppository x 1 now Miralax x 1 dose now continue on scheduled PeriColace Monitor for BM General anxiety disorder Panic attack disorder Xanax as needed Klonopin 3 times daily Hepatitis C LFTs WNL Standard precautions Patient will need to follow-up with GI as outpatient Hx of IVDU Patient has been clean for 2 years DVT prophylaxis Lovenox Discussed Condition With: patient, nursing staff, Dr. Madera, Dr. aVnessa Discharge Planning: Not ready for discharge. Workup in progress. Discharge pending clinical improvement, results of CT-guided aspiration/biopsy and ID clearance.
[2018-04-04] MEDS ORDERED: Bisacodyl 10 MG Supp RECTAL ONE (11:12)
[2018-04-04] MEDS: Polyethylene Glycol 3350 17 GM Packet PO SCH (13:36)
--- NOTE | 2018-04-04 14:00 | P.PNID ---
Subjective Remarks: Patient is a 32-year-old female, presented to the hospital complaining of worsening back pain. Her symptoms started around 05 March with low back pain. It was thought that it may be a sciatica, however it progressively worsen so she was admitted at [facility] around March 11. They were told that there was an abscess, and she subsequently underwent biopsy of her back about 3 days after being admitted. She was started on IV antibiotics when she came in, and was told that the culture of the biopsy came back negative. Patient stated that she was improving as far as the pain, and she was discharged on oral antibiotics with Cipro and doxycycline. She followed up with her primary care physician. About 4-5 days after she was discharged from the hospital, her back pain came back. It was pretty bad and it went all the way to the front down to both lower extremity. She also started having symptoms of neuropathy with pins and needles on her feet. She denies any urinary retention or any problem with bowel movement. She had several days of some loose stool but that has improved. She had several episode of temperature up to 101, but most of the time they are within normal limits. However she has been having some chills. She denies any respiratory complaint. She had some vomiting yesterday due to the severe pain. Medical records from [facility] have been requested and currently not available at the time my exam. She had an MRI done here which did not show any epidural abscess, but it did show findings of discitis at L4-L5. Since admission highest temperature has been 99+. Her sed rate is 72 and her C-reactive protein is elevated. Infectious disease consultation has been requested to assist with evaluation and treatment of patient with discitis. Notes reviewed D/W GELACIO Joseph ok On better pain regimen accdg to patient C/O back spasms BC negative Had aspiration of fluid in her back C/S pending She has missed about 1 day of Abx 04/02 Difficulty with venous access Records from [facility] not available yet Antibiotics: Vancomycin Fortaz Lines: PIV no evid of infection Past Medical History: History of intravenous drug use in remission Osteomyelitis Hx of tubal ligation Previous section S/P biopsy Allergies/Adverse Reactions: Allergies tramadol Adverse Reaction (Verified 03/29/18 12:24) Gastrointestinal Upset Objective Vital Signs 04/03/18 15:12 04/03/18 16:00 04/03/18 16:59 Temperature 98.1 F 98.1 F Pulse Rate 66 96 H 96 H Respiratory Rate 20 20 20 Blood Pressure 125/66 122/69 122/69 Pulse Oximetry 99 99 04/03/18 20:00 04/04/18 00:00 04/04/18 04:00 Temperature 99.2 F 98.3 F 98.5 F Pulse Rate 102 H 86 88 Respiratory Rate 18 18 18 Blood Pressure 160/63 H 114/56 L 130/60 Pulse Oximetry 99 99 99 04/04/18 08:00 04/04/18 12:00 Temperature 98.0 F 97.7 F Pulse Rate 76 91 H Respiratory Rate 12 20 Blood Pressure 121/63 120/63 Pulse Oximetry 99 100 Intake & Output 04/03/18 04/04/18 04/04/18 18:59 06:59 18:59 Intake Total 1460 / 1460 350 / 350 350 / 350 Balance 1460 / 1460 350 / 350 350 / 350 Weight 85.9 kg Intake: IV 700 / 700 350 / 350 350 / 350 Robaxin Inj 1,000 MG In NS Inj 250 / 250 250 / 250 240 ML @ 500 mls/hr IV.SIG Q8HR RUBEN Rx#:[id number] Vancomycin Inj 1,000 MG In NS 250 / 250 250 / 250 Inj 250 ML @ 250 mls/hr IV.SIG Q24H RUBEN Rx#:[id number] Tazicef Inj 1,000 MG In NS Inj 200 / 200 100 / 100 100 / 100 100 ML @ 200 mls/hr IV.SIG Q8H RUBEN Rx#:[id number] Oral 760 / 760 Other: # Voids 3 Date of Last Bowel Movement 04/03/18 04/03/18 11:37 Tissue - Other Gram Stain - Final 04/03/18 11:37 Tissue - Other Wound Culture - Preliminary No growth in 24 hours 04/03/18 11:37 Tissue - Other Fungal Smear - Final No fungal elements seen 04/03/18 11:37 Tissue - Other Fungal Culture - Pending 04/03/18 11:37 Tissue - Other Acid Fast Bacilli Smear - Pending 04/03/18 11:37 Tissue - Other Mycobacterial Culture - Pending 03/29/18 14:00 Blood - Peripheral Aerobic Blood Culture - Final No growth in 5 days 03/29/18 14:00 Blood - Peripheral Anaerobic Blood Culture - Final No growth in 5 days 03/29/18 13:45 Blood - Peripheral Aerobic Blood Culture - Final No growth in 5 days 03/29/18 13:45 Blood - Peripheral Anaerobic Blood Culture - Final No growth in 5 days Imaging: ITS Impressions Lumbar Spine MRI 03/29/18 13:34 CONCLUSION: Guidance Ultrasound 04/03/18 00:00 CONCLUSION: 1. Uncomplicated ultrasound guided venous access. Needle Biopsy/Aspiration X-Ray 04/03/18 00:00 CONCLUSION: 1. Uncomplicated needle biopsy of the L4/L5 disc as above. Physical Exam: GENERAL: awake and alert, not in respiratory distress. Sitting at side of bed SKIN: Cool and dry. No generalized rash, no ecchymoses and no evidence of embolic lesions. HEAD: Atraumatic. Normocephalic. No temporal wasting, or tenderness. EYES: Pray conjunctiva. No petechia or hemorrhage. Pupils equal, round and reactive to light. Extraocular movements full and intact. No scleral icterus. No injection or drainage. EARS, NOSE AND THROAT: Nose without bleeding or purulent nasal discharge. No sinus tenderness. Mucous membranes pink and moist. No oral lesions noted. No exudate. No oral thrush. NECK: Trachea midline. Supple and not tender, no meningeal signs CARDIOVASCULAR: Regular rate and rhythm. No murmurs, rubs or gallops heard RESPIRATORY: Clear to auscultation. Breath sounds equal bilaterally. No rales , wheezing or rhonchi ABDOMEN: Soft, non-tender, nondistended. Bowel sounds present and normoactive. No guarding. No rebound. No organomegaly. EXTREMITIES: No clubbing, cyanosis, or edema.No joint effusion, has good ROM. No calf tenderness. Well perfused and warm. BACK: No swelling noted in lumbar region NEUROLOGICAL: Awake and alert. Cranial nerves grossly intact. Motor grossly within normal limits. PSYCHIATRIC: Normal affect, anxious due to pain, and cooperative. LINE: No evidence of infection Assessment and Plan - Plan Impression Back pain, findings of L4-L5 discitis on MRI - previous biopsy negative (But was reportedly on Abx prior to biopsy) Hx IVDU (clean for about 1 year) Recommendation Await records from [facility] On IV vanco and Fortaz currently, continue for now Follow C/Sand decide on course of Abx OK to place PICC Pain control Follow temps Follow clinical course and decide of course of Rx D/W patient and mother D/W RN Spoke with Marv KIMBROUGH
--- NOTE | 2018-04-04 14:19 | XR ---
EXAM DATE: 04/04/2018 2:13 PM EDT AGE/SEX: 32 years / Female INDICATIONS: Abdominal pain, constipation, and distention. CLINICAL DATA: This is the patient's initial encounter. Patient reports that signs and symptoms have been present for 3 days and indicates a pain score of 3/10. MEDICAL/SURGICAL HISTORY: . IVDU, Osteomyelitis. . section. Tubal ligation. COMPARISON: No prior exams available for comparison. FINDINGS: Moderate amount of stool within the colon. No dilated loops of bowel are seen. Osseous structures are intact. No abnormal calcifications. CONCLUSION: Moderate amount of stool is seen throughout the colon. Electronically signed by: Geovany Milan MD 04/04/2018 2:18 PM EDT
[2018-04-04] MEDS ORDERED: Heparin Central Flush 100 UNIT/ML 5 ML Vial IV.FLUSH PRN (18:57)
[2018-04-04] MEDS: Vancomycin Inj 1,000 MG in Sodium Chlor 0.9% Inj 250 ML IV.SIG SCH (21:16)
[2018-04-05] MEDS: oxyCODONE/Acetaminophen 10/325 Tablet PO PRN ×5 (04:34→23:45)
[2018-04-05] MEDS: HYDROmorphone PF Inj 2 MG/ML Vial IV.PUSH PRN ×5 (05:43→21:24)
[2018-04-05] MEDS: clonazePAM 0.5 MG Tablet PO SCH ×3 (07:00→22:10)
--- NOTE | 2018-04-05 07:42 | P.PN ---
Subjective Interval history: Follow up on patient with history of spinal abscess, L45 discitis, history of IV drug use clean for the past 2 years. Patient seen and examined. Patient reports she is a little better this morning. She is still having significant back spasms although not as severe. She reports her pain is fairly well- controlled at present. She reports that numbness and tingling in her legs and feet is a little better today. She denies any bowel or bladder difficulties. She did have bowel movement and states her abdomen feels less bloated. She denies any fever or chills. She denies any chest pain or shortness of breath. She denies any nausea or vomiting or abdominal pain. Physical Exam Vital signs: Vital Signs 04/04/18 08:00 04/04/18 12:00 04/04/18 16:00 Temperature 98.0 F 97.7 F 98.7 F Pulse Rate 76 91 H 99 H Respiratory Rate 12 20 19 Blood Pressure 121/63 120/63 141/64 H Pulse Oximetry 99 100 99 04/04/18 20:00 04/05/18 00:00 04/05/18 04:00 Temperature 99.2 F 99.2 F 99.5 F Pulse Rate 100 H 82 85 Respiratory Rate 18 18 18 Blood Pressure 151/65 H 122/59 L 130/60 Pulse Oximetry 97 97 96 04/05/18 07:30 Temperature 97.5 F L Pulse Rate 98 H Respiratory Rate 12 Blood Pressure 116/55 L Pulse Oximetry 97 Intake & Output 04/04/18 04/05/18 04/05/18 18:59 06:59 18:59 Intake Total 2230 / 2230 100 / 100 Balance 2230 / 2230 100 / 100 Weight 85.9 kg Intake: IV 450 / 450 100 / 100 Vancomycin Inj 1,000 MG In NS 250 / 250 Inj 250 ML @ 250 mls/hr IV.SIG Q24H RUBEN Rx#:[id number] Tazicef Inj 1,000 MG In NS Inj 200 / 200 100 / 100 100 ML @ 200 mls/hr IV.SIG Q8H RUBEN Rx#:[id number] Oral 1779 / 1780 Other: # Voids 2 Date of Last Bowel Movement 04/04/18 04/03/18 04/03/18 # Bowel Movements 2 Narrative: GENERAL: This is a well-developed, well-nourished female, INAD. Awake and alert. SKIN: Warm and dry. No generalized rash. PICC line in place RUE. HEAD: Atraumatic. Normocephalic. EYES: Pupils equal and round. No scleral icterus. No injection or drainage. ENT: No nasal bleeding or discharge. Mucous membranes pink and moist. NECK: Trachea midline. No JVD. CARDIOVASCULAR: Regular rate and rhythm. RESPIRATORY: No accessory muscle use. Clear to auscultation. Breath sounds equal bilaterally. GASTROINTESTINAL: Abdomen soft, non-tender, nondistended. +BS. MUSCULOSKELETAL: Extremities without clubbing, cyanosis, or edema. No obvious deformities. NEUROLOGICAL: Awake and alert. No obvious cranial nerve deficits. Able to move all extremities spontaneously. No focal neurologic finding appreciated. Normal speech. PSYCHIATRIC: Appropriate mood and affect; insight and judgment normal. Results - Labs CBC & Chem 7: 04/02/18 08:31 04/02/18 06:06 Microbiology 04/03/18 11:37 Tissue - Other Gram Stain - Final 04/03/18 11:37 Tissue - Other Wound Culture - Preliminary No growth in 24 hours 04/03/18 11:37 Tissue - Other Fungal Smear - Final No fungal elements seen - Imaging Impressions Abdomen X-Ray 04/04/18 00:00 CONCLUSION: Moderate amount of stool is seen throughout the colon. Assessment and Plan - Assessment (1) Intractable low back pain Code(s): M54.5 - Low back pain Status: Acute (2) Discitis of lumbar region Code(s): M46.46 - Discitis, unspecified, lumbar region Status: Acute - Plan 32-year-old female admitted secondary to spinal abscess. Spinal osteomyelitis Discitis L4-L5 Outpatient treatment failure Ciprofloxacin and doxycycline failed as an outpatient p.o. treatment MRI lumbar spine shows discitis at L4-5 with abnormal thickening and enhancement in the anterior epidural region with mass-effect on the anterior thecal sac with surrounding soft tissue swelling and edema Echo negative for vegetation Blood cultures with no growth 5 days ID following, appreciate assistance s/p CT guided bx, no growth to date. Continue to follow until finalized. Continue IV vancomycin and Fortaz per ID - may need higher dosing. Pharmacy consult/vanc trough. Neurosurgery following, no surgical intervention at this time. They have signed off. Continue pain treatments with Percocet and MS Contin Continue on Neurontin 300 mg p.o. 3 times daily Flexeril 5mg po TID prn muscle spasms Continue participation with physical therapy Constipation, resolved KUB showed moderate amount of stool in colon +BM continue on scheduled Pericolace and Miralax daily for now General anxiety disorder Panic attack disorder Exacerbated given current situation Xanax as needed Klonopin 3 times daily Hepatitis C LFTs WNL Standard precautions Patient will need to follow-up with GI as outpatient Hx of IVDU Patient has been clean for 2 years DVT prophylaxis Lovenox Discussed Condition With: patient, nursing staff, Dr. Vanessa, Dr. Madera Discharge Planning: Not ready for discharge. Workup in progress. Discharge pending clinical improvement, results of CT-guided aspiration/biopsy and ID clearance.
[2018-04-05] MEDS: Senna/Docusate Sodium 8.6/50 MG Tablet PO SCH ×2 (09:00→20:28)
[2018-04-05] MEDS: Gabapentin 300 MG Capsule PO SCH ×3 (09:00→17:18)
[2018-04-05] MEDS: Morphine Sulfate 30 MG SR Tablet PO SCH ×2 (09:00→20:28)
[2018-04-05] MEDS: Lidocaine 5% Patch T-DERMAL SCH (09:01)
[2018-04-05] MEDS: Heparin Central Flush 100 UNIT/ML 5 ML Vial IV.FLUSH SCH (09:01)
[2018-04-05] MEDS: Polyethylene Glycol 3350 17 GM Packet PO SCH (09:02)
--- NOTE | 2018-04-05 10:13 | P.PNID ---
Subjective Remarks: Patient is a 32-year-old female, presented to the hospital complaining of worsening back pain. Her symptoms started around 05 March with low back pain. It was thought that it may be a sciatica, however it progressively worsen so she was admitted at [facility] around March 11. They were told that there was an abscess, and she subsequently underwent biopsy of her back about 3 days after being admitted. She was started on IV antibiotics when she came in, and was told that the culture of the biopsy came back negative. Patient stated that she was improving as far as the pain, and she was discharged on oral antibiotics with Cipro and doxycycline. She followed up with her primary care physician. About 4-5 days after she was discharged from the hospital, her back pain came back. It was pretty bad and it went all the way to the front down to both lower extremity. She also started having symptoms of neuropathy with pins and needles on her feet. She denies any urinary retention or any problem with bowel movement. She had several days of some loose stool but that has improved. She had several episode of temperature up to 101, but most of the time they are within normal limits. However she has been having some chills. She denies any respiratory complaint. She had some vomiting yesterday due to the severe pain. [facility] requested and currently not available at the time my exam. She had an MRI done here which did not show any epidural abscess, but it did show findings of discitis at L4-L5. Since admission highest temperature has been 99+. Her sed rate is 72 and her C-reactive protein is elevated. Infectious disease consultation has been requested to assist with evaluation and treatment of patient with discitis. Notes reviewed D/W GELACIO Joseph ok On better pain regimen accdg to patient C/O back spasms BC negative Had aspiration of fluid in her back C/S negative so far She has missed about 1 day of Abx 04/02 Difficulty with venous access PICC has been ordered Antibiotics: Vancomycin Fortaz Lines: PIV no evid of infection Past Medical History: History of intravenous drug use in remission Osteomyelitis Hx of tubal ligation Previous section S/P biopsy Allergies/Adverse Reactions: Allergies tramadol Adverse Reaction (Verified 03/29/18 12:24) Gastrointestinal Upset Objective Vital Signs 04/04/18 12:00 04/04/18 16:00 04/04/18 20:00 Temperature 97.7 F 98.7 F 99.2 F Pulse Rate 91 H 99 H 100 H Respiratory Rate 20 19 18 Blood Pressure 120/63 141/64 H 151/65 H Pulse Oximetry 100 99 97 04/05/18 00:00 04/05/18 04:00 04/05/18 07:30 Temperature 99.2 F 99.5 F 97.5 F L Pulse Rate 82 85 98 H Respiratory Rate 18 18 12 Blood Pressure 122/59 L 130/60 116/55 L Pulse Oximetry 97 96 97 Intake & Output 04/04/18 04/05/18 04/05/18 18:59 06:59 18:59 Intake Total 2230 / 2230 100 / 100 350 / 350 Balance 2230 / 2230 100 / 100 350 / 350 Weight 85.9 kg Intake: IV 450 / 450 100 / 100 350 / 350 Vancomycin Inj 1,000 MG In NS 250 / 250 250 / 250 Inj 250 ML @ 250 mls/hr IV.SIG Q24H RUBEN Rx#:[id number] Tazicef Inj 1,000 MG In NS Inj 200 / 200 100 / 100 100 / 100 100 ML @ 200 mls/hr IV.SIG Q8H RUBEN Rx#:[id number] Oral 1780 / 1780 Other: # Voids 2 Date of Last Bowel Movement 04/04/18 04/03/18 04/03/18 # Bowel Movements 2 04/03/18 11:37 Tissue - Other Gram Stain - Final 04/03/18 11:37 Tissue - Other Wound Culture - Preliminary No growth in 48 hours 04/03/18 11:37 Tissue - Other Acid Fast Bacilli Smear - Final No acid fast bacilli seen 04/03/18 11:37 Tissue - Other Mycobacterial Culture - Pending 04/03/18 11:37 Tissue - Other Fungal Smear - Final No fungal elements seen 04/03/18 11:37 Tissue - Other Fungal Culture - Pending 03/29/18 14:00 Blood - Peripheral Aerobic Blood Culture - Final No growth in 5 days 03/29/18 14:00 Blood - Peripheral Anaerobic Blood Culture - Final No growth in 5 days 03/29/18 13:45 Blood - Peripheral Aerobic Blood Culture - Final No growth in 5 days 03/29/18 13:45 Blood - Peripheral Anaerobic Blood Culture - Final No growth in 5 days Imaging: ITS Impressions Lumbar Spine MRI 03/29/18 13:34 CONCLUSION: Guidance Ultrasound 04/03/18 00:00 CONCLUSION: 1. Uncomplicated ultrasound guided venous access. Needle Biopsy/Aspiration X-Ray 04/03/18 00:00 CONCLUSION: 1. Uncomplicated needle biopsy of the L4/L5 disc as above. Abdomen X-Ray 04/04/18 00:00 CONCLUSION: Moderate amount of stool is seen throughout the colon. Physical Exam: GENERAL: awake and alert, not in respiratory distress. Sitting at side of bed SKIN: Cool and dry. No generalized rash, no ecchymoses and no evidence of embolic lesions. HEAD: Atraumatic. Normocephalic. No temporal wasting, or tenderness. EYES: [place] conjunctiva. No petechia or hemorrhage. Pupils equal, round and reactive to light. Extraocular movements full and intact. No scleral icterus. No injection or drainage. EARS, NOSE AND THROAT: Nose without bleeding or purulent nasal discharge. No sinus tenderness. Mucous membranes pink and moist. No oral lesions noted. No exudate. No oral thrush. NECK: Trachea midline. Supple and not tender, no meningeal signs CARDIOVASCULAR: Regular rate and rhythm. No murmurs, rubs or gallops heard RESPIRATORY: Clear to auscultation. Breath sounds equal bilaterally. No rales , wheezing or rhonchi ABDOMEN: Soft, non-tender, nondistended. Bowel sounds present and normoactive. No guarding. No rebound. No organomegaly. EXTREMITIES: No clubbing, cyanosis, or edema.No joint effusion, has good ROM. No calf tenderness. Well perfused and warm. BACK: No swelling noted in lumbar region NEUROLOGICAL: Awake and alert. Cranial nerves grossly intact. Motor grossly within normal limits. PSYCHIATRIC: Normal affect, anxious due to pain, and cooperative. LINE: No evidence of infection Assessment and Plan - Plan Impression Back pain, findings of L4-L5 discitis on MRI - previous biopsy negative (But was reportedly on Abx prior to biopsy) - repeat C/S negative so far Hx IVDU (clean for about 1 year) Recommendation On IV vanco and Fortaz currently, continue for now Follow C/S and decide on course of Abx - if C/S negative, will Rx for most common pathogen: Staph and Strep - use IV vanco and also use po Cipro 750 BID - will ask pharmacy to do Vanco dosing, she is on q24h, may need higher dosing - will need at least 8 weeks of Abx from date of therapeutic vanco dosing Pain control Follow temps Follow clinical course and decide of course of Rx D/W S Jayesh KIMBROUGH I will be off 04/06-04/09, other ID MD covering in my absence
[2018-04-05] MEDS ORDERED: Vancomycin Consult Pharmacy 1 EACH OTHER SCH (11:00)
[2018-04-05] MEDS: Vancomycin Inj 1,250 MG in Sodium Chlor 0.9% Inj 250 ML IV.SIG SCH (14:15)
[2018-04-05] MEDS: Temazepam 15 MG Capsule PO PRN (22:10)
[2018-04-06] MEDS: HYDROmorphone PF Inj 2 MG/ML Vial IV.PUSH PRN ×6 (01:45→23:56)
[2018-04-06] MEDS: Vancomycin Inj 1,250 MG in Sodium Chlor 0.9% Inj 250 ML IV.SIG SCH ×2 (01:45→15:29)
[2018-04-06] MEDS: oxyCODONE/Acetaminophen 10/325 Tablet PO PRN ×4 (05:19→19:49)
[2018-04-06] MEDS: clonazePAM 0.5 MG Tablet PO SCH ×3 (05:20→21:49)
--- NOTE | 2018-04-06 07:38 | P.PN ---
Subjective Interval history: Follow up on patient with history of spinal abscess, L45 discitis, history of IV drug use clean for the past 2 years. Patient seen and examined. Patient is complaining of increased low back and bilateral hip pain. She also states that the numbness in her legs and feet has worsened. She is having debilitating back spasms lasting up to 30 minutes at a time making it impossible for her to move her legs. She has not been able to get any sleep. She denies any fever or chills. She denies any chest pain or shortness of breath. She denies any nausea vomiting or abdominal pain. She denies any bowel or bladder problems. Physical Exam Vital signs: Vital Signs 04/05/18 12:00 04/05/18 16:00 04/05/18 20:00 Temperature 98.2 F 98 F 98.5 F Pulse Rate 84 92 H 90 Respiratory Rate 16 18 17 Blood Pressure 113/55 L 147/64 H 126/60 Pulse Oximetry 98 98 98 04/05/18 23:40 04/06/18 00:00 04/06/18 00:30 Temperature 97.8 F Pulse Rate 86 Respiratory Rate 18 17 16 Blood Pressure 107/68 Pulse Oximetry 100 04/06/18 00:48 04/06/18 04:00 04/06/18 06:43 Temperature 98.1 F Pulse Rate 77 Respiratory Rate 16 17 16 Blood Pressure 105/54 L Pulse Oximetry 96 Intake & Output 04/05/18 04/06/18 04/06/18 18:59 06:59 18:59 Intake Total 2225 / 2225 100 / 100 Balance 2225 / 2225 100 / 100 Intake: IV 725 / 725 100 / 100 Vancomycin Inj 1,000 MG In NS 250 / 250 Inj 250 ML @ 250 mls/hr IV.SIG Q24H RUBEN Rx#:[id number] Vancomycin Inj 1,250 MG In NS 275 / 275 Inj 250 ML @ 250 mls/hr IV.SIG Q12H RUBEN Rx#:[id number] Tazicef Inj 1,000 MG In NS Inj 200 / 200 100 / 100 100 ML @ 200 mls/hr IV.SIG Q8H RUBEN Rx#:[id number] Oral 1500 / 1500 Other: # Voids 5 Date of Last Bowel Movement 04/05/18 04/05/18 # Bowel Movements 2 1 Narrative: GENERAL: This is a well-developed, well-nourished female. Awake and alert. Sitting up in bedside chair, appears to be in mild distress secondary to pain. She is visibly upset and crying. Mother is at the bedside. SKIN: Warm and dry. No generalized rash. PICC line in place RUE. HEAD: Atraumatic. Normocephalic. EYES: Pupils equal and round. No scleral icterus. No injection or drainage. ENT: No nasal bleeding or discharge. Mucous membranes pink and moist. NECK: Trachea midline. No JVD. CARDIOVASCULAR: Regular rate and rhythm. RESPIRATORY: No accessory muscle use. Clear to auscultation. Breath sounds equal bilaterally. GASTROINTESTINAL: Abdomen soft, non-tender, nondistended. +BS. MUSCULOSKELETAL: Extremities without clubbing, cyanosis, or edema. No obvious deformities. NEUROLOGICAL: Awake and alert. No obvious cranial nerve deficits. Severely decreased range of motion lumbar spine. Tenderness to palpation bilateral lower lumbar paraspinous muscles. Unable to assess bilateral lower extremity strength secondary to pain with movement. Normal speech. PSYCHIATRIC: Tearful, upset. Appropriate mood and affect; insight and judgment normal. Results - Labs CBC & Chem 7: 04/02/18 08:31 04/02/18 06:06 Microbiology 04/03/18 11:37 Tissue - Other Gram Stain - Final 04/03/18 11:37 Tissue - Other Wound Culture - Preliminary No growth in 48 hours 04/03/18 11:37 Tissue - Other Acid Fast Bacilli Smear - Final No acid fast bacilli seen - Imaging Lumbar Spine MRI 03/29/18 13:34 CONCLUSION: Guidance Ultrasound 04/03/18 00:00 CONCLUSION: 1. Uncomplicated ultrasound guided venous access. Needle Biopsy/Aspiration X-Ray 04/03/18 00:00 CONCLUSION: 1. Uncomplicated needle biopsy of the L4/L5 disc as above. Abdomen X-Ray 04/04/18 00:00 CONCLUSION: Moderate amount of stool is seen throughout the colon. - Procedures 04/03/18 PROCEDURE: 1. Fluoroscopically guided needle biopsy. 2. Conscious sedation with continuous EKG and Oximetry monitoring. The risks, benefits and alternatives to the procedure were explained and verbal and written consent was obtained. The site was prepped in sterile fashion. Full sterile technique was used, including cap, mask, sterile gloves and gown and a large sterile sheet. Hand hygiene and 2% chlorhexidine and/or betadine/alcohol prep was utilized per protocol for cutaneous antisepsis. The skin and subcutaneous tissues were infiltrated with local anesthetic solution. With fluoroscopic guidance a 20-gauge needle was advanced down into the disc space at the L4/5 disc level. 2 20-gauge aspiration biopsies were obtained. Small disc fragments were evident. These were sent to pathology for evaluation.. Conscious sedation was performed with the prescribed dosages and duration as above in the presence of an independent trained radiology nurse to assist in the monitoring of the patient. EKG and oximetry remained stable throughout the procedure. CONCLUSION: 1. Uncomplicated needle biopsy of the L4/L5 disc as above. Electronically signed by: Bonifacio Hester MD 04/03/2018 1:00 PM EDT Assessment and Plan - Assessment (1) Intractable low back pain Code(s): M54.5 - Low back pain Status: Acute (2) Discitis of lumbar region Code(s): M46.46 - Discitis, unspecified, lumbar region Status: Acute - Plan 32-year-old female admitted secondary to spinal abscess. Spinal osteomyelitis Discitis L4-L5 Outpatient treatment failure Ciprofloxacin and doxycycline failed as an outpatient p.o. treatment MRI lumbar spine shows discitis at L4-5 with abnormal thickening and enhancement in the anterior epidural region with mass-effect on the anterior thecal sac with surrounding soft tissue swelling and edema Echo negative for vegetation Blood cultures with no growth 5 days ID following, appreciate assistance s/p CT guided bx, no growth x 72hrs Continue IV vancomycin and Fortaz per ID - may need higher dosing. Pharmacy consult/vanc trough. Neurosurgery following, no surgical intervention at this time. They have signed off. Continue pain treatments with Percocet and MS Contin Continue on Neurontin 300 mg p.o. 3 times daily Increase flexeril to 10mg po TID prn muscle spasms Continue participation with physical therapy / patient with increased low back and bilateral hip pain as well as increased numbness and tingling in bilateral lower extremities. She is afebrile. Will obtain MRI with and without contrast of the lumbar spine for further evaluation. Obtain CBC, CMP, CRP and vanc trough stat. Constipation, resolved KUB showed moderate amount of stool in colon +BM continue on scheduled Pericolace and Miralax daily for now General anxiety disorder Panic attack disorder Exacerbated given current situation Xanax as needed Klonopin 3 times daily Hepatitis C LFTs WNL Standard precautions Patient will need to follow-up with GI as outpatient Hx of IVDU Patient has been clean for 2 years DVT prophylaxis Lovenox Discussed Condition With: patient, mother at bedside, nursing staff, CM and Dr. Vanessa Discharge Planning: Not ready for discharge. Workup in progress. Discharge pending clinical improvement, MRI results, ID clearance.
[2018-04-06] MEDS: Morphine Sulfate 30 MG SR Tablet PO SCH ×2 (09:02→21:48)
[2018-04-06] MEDS: Gabapentin 300 MG Capsule PO SCH ×3 (09:02→17:01)
[2018-04-06] MEDS: Polyethylene Glycol 3350 17 GM Packet PO SCH (09:02)
[2018-04-06] MEDS: Senna/Docusate Sodium 8.6/50 MG Tablet PO SCH ×2 (09:02→20:23)
[2018-04-06] MEDS: Lidocaine 5% Patch T-DERMAL SCH (09:03)
[2018-04-06] MEDS: Heparin Central Flush 100 UNIT/ML 5 ML Vial IV.FLUSH SCH (09:03)
[2018-04-06] MEDS ORDERED: HYDROmorphone PF Inj 2 MG/ML Vial IV.PUSH ONE (09:45)
[2018-04-06] MEDS ORDERED: Gadobutrol PF 10 MMOL/10 ML Vial (for RAD) IV.SIG ONE (14:50)
--- NOTE | 2018-04-06 16:16 | MR ---
EXAM DATE: 04/06/2018 3:22 PM EDT AGE/SEX: 32 years / Female INDICATIONS: Discitis. Low back pain. CLINICAL DATA: This is the patient's initial encounter. Patient reports that signs and symptoms have been present for 1 day and indicates a pain score of 8/10. MEDICAL/SURGICAL HISTORY: None. section. Tubal ligation. COMPARISON: [facility], MR LUMBAR SPINE W & W/O CONTRAST, 03/29/2018. . TECHNIQUE: Multiplanar, multisequence MRI examination of the lumbar spine was performed without and with 9 ml Gadavist (gadobutrol) contrast as a single exam dose. FINDINGS: The most caudal-appearing lumbar vertebra is numbered as L5. Today's exam is compared to the prior study of 03/29/2018. There continues to be bone marrow edema at L4-5 consistent with patient's known diagnosis of discitis. There continues to be good alignment of t he lumbar spine. There has been no new or significant changes in the overall appearance of the lumbar spine compared to the prior examination. The postcontrast images again demonstrate enhancement invol ving the inferior endplate of L4 and the superior endplate of L5 and the posterior disc consistent wi th patient's known history of discitis. These findings are all stable compared to the prior study. Th ere continues to be broad-based bulging L4-5. However, no significant spinal canal stenosis is demons trated. The neural foramina at L4-5 appear patent. Compared to the prior exam there have been no new or significant changes in the overall appearance of the lumbar spine. CONCLUSION: 1. Stable follow-up MRI of the lumbar spine in this patient who has a known discitis at L4-5. 2. The findings at L4-5 are stable compared to the prior study with no new or significant changes. Electronically signed by: Layton Price MD 04/06/2018 4:15 PM EDT
[2018-04-06 16:17] LABS: Baso # (Auto) 0.1 th/mm3 (0.0-0.2); Eos # (Auto) 0.4 th/mm3 (0.0-0.4); Eos % (Auto) 7.3 % (0.0-4.0); Hematocrit 28.8 % (35.0-46.0); Hemoglobin 9.5 gm/dL (11.6-15.3); Lymph # (Auto) 1.7 th/mm3 (1.0-4.8); Lymph % (Auto) 27.8 % (9.0-44.0); Mean Corpuscular Hemoglobin 23.6 pg (27.0-34.0); Mean Corpuscular Volume 71.5 fL (80.0-100.0); Mono # (Auto) 0.6 th/mm3 (0.0-0.9); Mono % (Auto) 9.2 % (0.0-8.0); Neut # (Auto) 3.4 th/mm3 (1.8-7.7); Neut % (Auto) 54.7 % (16.0-70.0); Platelet Count 403 th/mm3 (150-450); Red Blood Count 4.03 mil/mm3 (4.00-5.30); Red Cell Distribution Width 17.9 % (11.6-17.2); White Blood Count 6.2 th/mm3 (4.0-11.0)
[2018-04-06 16:31] LABS: Alanine Aminotransferase 16 U/L (10-53); Albumin 3.1 g/dL (3.4-5.0); Anion Gap 7 meq/L (5-15); Aspartate Aminotransferase 11 U/L (15-37); Blood Urea Nitrogen 11 mg/dL (7-18); Calcium 8.8 mg/dL (8.5-10.1); Chloride 104 meq/L (98-107); Glomerular Filtration Rate Greater Than 89 mL/min (>89); Glucose,Random 81 mg/dL (74-106); Potassium 4.4 meq/L (3.5-5.1); Sodium 140 meq/L (136-145)
[2018-04-06 16:33] LABS: Alkaline Phosphatase 97 U/L (45-117)
[2018-04-06] MEDS: Temazepam 15 MG Capsule PO PRN (22:03)
[2018-04-07] MEDS ORDERED: Pharmacy Ordered Lab Info OTHER ONE (01:45)
[2018-04-07] MEDS: Vancomycin Inj 1,250 MG in Sodium Chlor 0.9% Inj 250 ML IV.SIG SCH (02:23)
[2018-04-07] MEDS: oxyCODONE/Acetaminophen 10/325 Tablet PO PRN ×5 (02:24→21:32)
[2018-04-07] MEDS: HYDROmorphone PF Inj 2 MG/ML Vial IV.PUSH PRN ×6 (03:00→23:36)
[2018-04-07] MEDS: clonazePAM 0.5 MG Tablet PO SCH ×3 (05:00→21:31)
[2018-04-07 06:25] LABS: Glomerular Filtration Rate Greater Than 89 mL/min (>89)
--- NOTE | 2018-04-07 08:00 | P.PN ---
Subjective Interval history: Follow up on patient with history of L45 discitis, history of IV drug use clean for the past 2 years. Patient seen and examined. Patient continues to complain of severe back spasms. She is asking if her antibiotics can be increased. She does not want to change her current pain regimen. She denies any fever or chills. She denies any chest pain or shortness of breath. She denies any nausea, vomiting or abdominal pain. Physical Exam Vital signs: Vital Signs 04/06/18 12:00 04/06/18 16:00 04/06/18 20:00 Temperature 98.2 F 98.3 F 98.2 F Pulse Rate 91 H 76 96 H Respiratory Rate 16 17 18 Blood Pressure 135/63 120/68 121/58 L Pulse Oximetry 97 99 99 04/07/18 00:20 04/07/18 01:08 04/07/18 03:04 Temperature 98.2 F Pulse Rate 88 Respiratory Rate 18 16 16 Blood Pressure 119/79 Pulse Oximetry 96 04/07/18 04:38 Temperature Pulse Rate Respiratory Rate 16 Blood Pressure Pulse Oximetry Intake & Output 04/06/18 04/07/18 04/07/18 18:59 06:59 18:59 Intake Total 990 / 990 100 / 100 Balance 990 / 990 100 / 100 Intake: IV 750 / 750 100 / 100 Vancomycin Inj 1,250 MG In NS 550 / 550 Inj 250 ML @ 250 mls/hr IV.SIG Q12H RUBEN Rx#:[id number] Tazicef Inj 1,000 MG In NS Inj 200 / 200 100 / 100 100 ML @ 200 mls/hr IV.SIG Q8H RUBEN Rx#:[id number] Oral 240 / 240 Other: Date of Last Bowel Movement 04/05/18 04/05/18 Narrative: GENERAL: This is a well-developed, well-nourished female. Awake and alert. Sitting up in bedside chair. Appears slightly more improved today with less back pain. Mother is at the bedside. SKIN: Warm and dry. No generalized rash. PICC line in place RUE. HEENT: Atraumatic. Normocephalic. EOMI. No scleral icterus. No injection or drainage. No nasal bleeding or discharge. Mucous membranes pink and moist. NECK: Trachea midline. No JVD. CARDIOVASCULAR: Regular rate and rhythm. RESPIRATORY: No accessory muscle use. Clear to auscultation. Breath sounds equal bilaterally. GASTROINTESTINAL: Abdomen soft, non-tender, nondistended. +BS. MUSCULOSKELETAL: Extremities without clubbing, cyanosis, or edema. No obvious deformities. NEUROLOGICAL: Awake and alert. No obvious cranial nerve deficits. Able to move all extremities. +tenderness to palpation lower lumbar spine. Motor grossly intact BLE. No focal neurologic finding appreciated. Normal speech. PSYCHIATRIC: Appropriate mood and affect; insight and judgment normal. Results - Labs CBC & Chem 7: 04/06/18 15:35 04/07/18 05:28 Laboratory Results - last 24 hr 04/06/18 04/06/18 04/06/18 15:35 15:35 15:35 WBC 6.2 RBC 4.03 Hgb 9.5 L Hct 28.8 L MCV 71.5 L MCH 23.6 L MCHC 33.0 RDW 17.9 H Plt Count 403 MPV 7.0 Neut % (Auto) 54.7 Lymph % (Auto) 27.8 [place] % (Auto) 9.2 H Eos % (Auto) 7.3 H Baso % (Auto) 1.0 Neut # (Auto) 3.4 Lymph # (Auto) 1.7 Tate # (Auto) 0.6 Eos # (Auto) 0.4 Baso # (Auto) 0.1 WBC Differential . Differential Comment Auto diff final Sodium 140 Potassium 4.4 Chloride 104 Carbon Dioxide 29.0 Anion Gap 7 BUN 11 Creatinine 0.67 Estimated GFR Greater than 89 Random Glucose 81 Calcium 8.8 Total Bilirubin 0.1 L AST 11 L ALT 16 Alkaline Phosphatase 97 C-Reactive Protein 7.09 H Total Protein 8.0 Albumin 3.1 L Vancomycin Trough 04/06/18 04/07/18 04/07/18 15:35 01:35 05:28 WBC RBC Hgb Hct MCV MCH MCHC RDW Plt Count MPV Neut % (Auto) Lymph % (Auto) [place] % (Auto) Eos % (Auto) Baso % (Auto) Neut # (Auto) Lymph # (Auto) Tate # (Auto) Eos # (Auto) Baso # (Auto) WBC Differential Differential Comment Sodium Potassium Chloride Carbon Dioxide Anion Gap BUN Creatinine 0.63 Estimated GFR Greater than 89 Random Glucose Calcium Total Bilirubin AST ALT Alkaline Phosphatase C-Reactive Protein Total Protein Albumin Vancomycin Trough 7.0 8.9 Microbiology 04/03/18 11:37 Tissue - Other Gram Stain - Final 04/03/18 11:37 Tissue - Other Wound Culture - Final No growth in 72 hours (aerobically and anaerobically ) - Imaging Impressions Lumbar Spine MRI 04/06/18 00:00 CONCLUSION: 1. Stable follow-up MRI of the lumbar spine in this patient who has a known discitis at L4-5. 2. The findings at L4-5 are stable compared to the prior study with no new or significant changes. - Procedures 04/03/18 PROCEDURE: 1. Fluoroscopically guided needle biopsy. 2. Conscious sedation with continuous EKG and Oximetry monitoring. The risks, benefits and alternatives to the procedure were explained and verbal and written consent was obtained. The site was prepped in sterile fashion. Full sterile technique was used, including cap, mask, sterile gloves and gown and a large sterile sheet. Hand hygiene and 2% chlorhexidine and/or betadine/alcohol prep was utilized per protocol for cutaneous antisepsis. The skin and subcutaneous tissues were infiltrated with local anesthetic solution. With fluoroscopic guidance a 20-gauge needle was advanced down into the disc space at the L4/5 disc level. 2 20-gauge aspiration biopsies were obtained. Small disc fragments were evident. These were sent to pathology for evaluation.. Conscious sedation was performed with the prescribed dosages and duration as above in the presence of an independent trained radiology nurse to assist in the monitoring of the patient. EKG and oximetry remained stable throughout the procedure. CONCLUSION: 1. Uncomplicated needle biopsy of the L4/L5 disc as above. Electronically signed by: Bonifacio Hester MD 04/03/2018 1:00 PM EDT Assessment and Plan - Assessment (1) Intractable low back pain Code(s): M54.5 - Low back pain Status: Acute (2) Discitis of lumbar region Code(s): M46.46 - Discitis, unspecified, lumbar region Status: Acute - Plan 32-year-old female admitted secondary to discitis L45. Discitis L4-L5 Outpatient treatment failure Ciprofloxacin and doxycycline failed as an outpatient p.o. treatment MRI lumbar spine shows discitis at L4-5 with abnormal thickening and enhancement in the anterior epidural region with mass-effect on the anterior thecal sac with surrounding soft tissue swelling and edema Echo negative for vegetation Blood cultures with no growth 5 days. s/p CT guided bx with no growth to date ID following, appreciate assistance - Dr. Pool to see patient today covering for Dr. [place] Continue IV vancomycin and Fortaz per ID - may need higher dosing. Pharmacy consult/vanc trough. Vanc trough subtherapeutic. CRP up to 7.09. Neurosurgery following, no surgical intervention at this time. They have signed off. Continue pain treatments with Percocet and MS Contin and Neurontin. Continue on Flexeril 10mg po TID prn muscle spasms Continue participation with physical therapy 04/06 patient with increased low back and bilateral hip pain as well as increased numbness and tingling in bilateral lower extremities. She is afebrile. Repeat MRI unchanged. Microcytic, hypochromic anemia Hgb low but stable Obtain iron studies monitor CBC as indicated Constipation, resolved KUB showed moderate amount of stool in colon +BM continue on scheduled Pericolace and Miralax daily for now General anxiety disorder Panic attack disorder Exacerbated given current situation Xanax as needed Klonopin 3 times daily Hepatitis C LFTs WNL Standard precautions Patient will need to follow-up with GI as outpatient Hx of IVDU Patient has been clean for 2 years DVT prophylaxis Lovenox Code Status: FULL Discussed Condition With: patient, mother, nursing staff, CM and Dr. Pool Discharge Planning: Not ready for discharge. Workup in progress. Discharge pending clinical improvement, MRI results, ID clearance.
[2018-04-07] MEDS: Morphine Sulfate 30 MG SR Tablet PO SCH ×2 (09:10→21:31)
[2018-04-07] MEDS: Senna/Docusate Sodium 8.6/50 MG Tablet PO SCH ×2 (09:10→21:31)
[2018-04-07] MEDS: Gabapentin 300 MG Capsule PO SCH ×3 (09:11→17:44)
[2018-04-07] MEDS: Heparin Central Flush 100 UNIT/ML 5 ML Vial IV.FLUSH SCH (09:11)
[2018-04-07] MEDS: Polyethylene Glycol 3350 17 GM Packet PO SCH (09:12)
[2018-04-07] MEDS: Lidocaine 5% Patch T-DERMAL SCH (09:12)
[2018-04-07] MEDS: Vancomycin Inj 1,500 MG in Sodium Chlor 0.9% Inj 500 ML IV.SIG SCH (13:46)
[2018-04-07 17:34] LABS: % Iron Saturation 6.3 % (20-50)
--- NOTE | 2018-04-07 17:43 | P.PNID ---
Subjective Remarks: Chart was reviewed Patient is a 32-year-old female, presented to the hospital complaining of worsening back pain. Her symptoms started around 05 March with low back pain. It was thought that it may be a sciatica, however it progressively worsen so she was admitted at [facility] around March 11. They were told that there was an abscess, and she subsequently underwent biopsy of her back about 3 days after being admitted. She was started on IV antibiotics when she came in, and was told that the culture of the biopsy came back negative. Patient stated that she was improving as far as the pain, and she was discharged on oral antibiotics with Cipro and doxycycline. She followed up with her primary care physician. About 4-5 days after she was discharged from the hospital, her back pain came back. It was pretty bad and it went all the way to the front down to both lower extremity. She also started having symptoms of neuropathy with pins and needles on her feet. She denies any urinary retention or any problem with bowel movement. She had several days of some loose stool but that has improved. She had several episode of temperature up to 101, but most of the time they are within normal limits. However she has been having some chills. She denies any respiratory complaint. She had some vomiting yesterday due to the severe pain. Medical records from [facility] have been requested and currently not available at the time my exam. She had an MRI done here which did not show any epidural abscess, but it did show findings of discitis at L4-L5. Since admission highest temperature has been 99+. Her sed rate is 72 and her C-reactive protein is elevated. Infectious disease consultation has been requested to assist with evaluation and treatment of patient with discitis. essentially 32 yo former IVDU (1 yr ago) with back pain x 1 month MRI with diskitis (steady) bx no growth 2/2, however 2nd bx done on abx: cipro, doxy ESR 70s Antibiotics: Vancomycin Fortaz Lines: PIV no evid of infection Past Medical History: History of intravenous drug use in remission Osteomyelitis Hx of tubal ligation Previous section S/P biopsy Allergies/Adverse Reactions: Allergies tramadol Adverse Reaction (Verified 03/29/18 12:24) Gastrointestinal Upset Objective Vital Signs 04/06/18 20:00 04/07/18 00:20 04/07/18 01:08 Temperature 98.2 F 98.2 F Pulse Rate 96 H 88 Respiratory Rate 18 18 16 Blood Pressure 121/58 L 119/79 Pulse Oximetry 99 96 04/07/18 03:04 04/07/18 04:38 04/07/18 09:03 Temperature 98.1 F Pulse Rate 85 Respiratory Rate 16 16 16 Blood Pressure 167/70 H Pulse Oximetry 93 L 04/07/18 10:28 04/07/18 13:18 Temperature 98.1 F Pulse Rate 100 H Respiratory Rate 16 16 Blood Pressure 134/78 Pulse Oximetry 92 L Intake & Output 04/06/18 04/07/18 04/07/18 18:59 06:59 18:59 Intake Total 990 / 990 100 / 100 375 / 375 Balance 990 / 990 100 / 100 375 / 375 Intake: IV 750 / 750 100 / 100 375 / 375 Vancomycin Inj 1,250 MG In NS 550 / 550 275 / 275 Inj 250 ML @ 250 mls/hr IV.SIG Q12H RUBEN Rx#:[id number] Tazicef Inj 1,000 MG In NS Inj 200 / 200 100 / 100 100 / 100 100 ML @ 200 mls/hr IV.SIG Q8H RUBEN Rx#:[id number] Oral 240 / 240 Other: Date of Last Bowel Movement 04/05/18 04/05/18 04/03/18 11:37 Tissue - Other Gram Stain - Final 04/03/18 11:37 Tissue - Other Wound Culture - Final No growth in 72 hours (aerobically and anaerobically ) 04/03/18 11:37 Tissue - Other Acid Fast Bacilli Smear - Final No acid fast bacilli seen 04/03/18 11:37 Tissue - Other Mycobacterial Culture - Pending Lab - Hematology Results 04/06/18 15:35 WBC 6.2 RBC 4.03 Hgb 9.5 L Hct 28.8 L MCV 71.5 L MCH 23.6 L MCHC 33.0 RDW 17.9 H Plt Count 403 MPV 7.0 Neut % (Auto) 54.7 Lymph % (Auto) 27.8 [place] % (Auto) 9.2 H Eos % (Auto) 7.3 H Baso % (Auto) 1.0 Neut # (Auto) 3.4 Lymph # (Auto) 1.7 [place] # (Auto) 0.6 Eos # (Auto) 0.4 Baso # (Auto) 0.1 WBC Differential . Differential Comment Auto diff final Lab - Chemistry Results 04/06/18 04/06/18 04/07/18 15:35 15:35 05:28 Sodium 140 Potassium 4.4 Chloride 104 Carbon Dioxide 29.0 Anion Gap 7 BUN 11 Creatinine 0.67 0.63 Estimated GFR Greater than 89 Greater than 89 Random Glucose 81 Calcium 8.8 Iron TIBC % Saturation Total Bilirubin 0.1 L AST 11 L ALT 16 Alkaline Phosphatase 97 C-Reactive Protein 7.09 H Total Protein 8.0 Albumin 3.1 L 04/07/18 05:28 Sodium Potassium Chloride Carbon Dioxide Anion Gap BUN Creatinine Estimated GFR Random Glucose Calcium Iron 20 L TIBC 315 % Saturation 6.3 L Total Bilirubin AST ALT Alkaline Phosphatase C-Reactive Protein Total Protein Albumin Imaging: ITS Impressions Guidance Ultrasound 04/03/18 00:00 CONCLUSION: 1. Uncomplicated ultrasound guided venous access. Needle Biopsy/Aspiration X-Ray 04/03/18 00:00 CONCLUSION: 1. Uncomplicated needle biopsy of the L4/L5 disc as above. Abdomen X-Ray 04/04/18 00:00 CONCLUSION: Moderate amount of stool is seen throughout the colon. Lumbar Spine MRI 04/06/18 00:00 CONCLUSION: 1. Stable follow-up MRI of the lumbar spine in this patient who has a known discitis at L4-5. 2. The findings at L4-5 are stable compared to the prior study with no new or significant changes. Physical Exam: GENERAL: awake and alert, severe distress 2/2 R side back pain SKIN: Cool and dry. No generalized rash, no ecchymoses and no evidence of embolic lesions. HEAD: Atraumatic. Normocephalic. No temporal wasting, or tenderness. EYES: [place] conjunctiva. No petechia or hemorrhage. Pupils equal, round and reactive to light. Extraocular movements full and intact. No scleral icterus. No injection or drainage. EARS, NOSE AND THROAT: no thrush moist mucosae NECK: Trachea midline. Supple and not tender, no meningeal signs CARDIOVASCULAR: Regular rate and rhythm. No murmurs, rubs or gallops heard RESPIRATORY: Clear to auscultation. Breath sounds equal bilaterally. No rales , wheezing or rhonchi ABDOMEN: Soft, non-tender, nondistended. Bowel sounds present and normoactive. No guarding. No rebound. No organomegaly. EXTREMITIES: No clubbing, cyanosis, or edema. Unable to move extremeties 2/2 sever spasm of the back BACK: unable to examine, pt refused to move 2/2 pain NEUROLOGICAL: Awake and alert. Cranial nerves grossly intact. Motor grossly within normal limits. PSYCHIATRIC: Normal affect, anxious due to pain, and cooperative. LINE: No evidence of infection Assessment and Plan - Plan Impression Back pain, findings of L4-L5 discitis on MRI Clx negative diskitis with prior abx use Hx IVDU (clean for about 1 year) Recommendation On IV vanco and Fortaz currently, continue for now Follow C/S and decide on course of Abx - if C/S negative, will Rx for most common pathogen: Staph and Strep - use IV vanco and also use po Cipro 750 BID - will ask pharmacy to do Vanco dosing, she is on q24h, may need higher dosing - will need at least 8 weeks of Abx from date of therapeutic vanco dosing PICC OK D/W S Jayesh KIMBROUGH
[2018-04-07] MEDS: Temazepam 15 MG Capsule PO PRN (21:32)
[2018-04-08] MEDS: oxyCODONE/Acetaminophen 10/325 Tablet PO PRN ×5 (01:16→21:35)
[2018-04-08] MEDS: Vancomycin Inj 1,500 MG in Sodium Chlor 0.9% Inj 500 ML IV.SIG SCH ×2 (01:49→12:59)
[2018-04-08] MEDS: clonazePAM 0.5 MG Tablet PO SCH ×3 (06:30→21:35)
--- NOTE | 2018-04-08 07:47 | P.PN ---
Subjective Interval history: Follow up on patient with history of L45 discitis, history of IV drug use clean for the past 2 years. Patient seen and examined. Patient states her back spasms have improved some but the numbness in her feet is worse. She states "I can't trust my feet". She denies any fever or chills. She denies any chest pain or shortness of breath. She denies any N/V or abdominal pain. +BM. Physical Exam Vital signs: Vital Signs 04/07/18 09:03 04/07/18 10:28 04/07/18 13:18 Temperature 98.1 F 98.1 F Pulse Rate 85 100 H Respiratory Rate 16 16 16 Blood Pressure 167/70 H 134/78 Pulse Oximetry 93 L 92 L 04/07/18 18:15 04/07/18 20:00 04/08/18 00:00 Temperature 98.2 F 97.7 F Pulse Rate 97 H 89 Respiratory Rate 16 20 20 Blood Pressure 122/59 L 143/64 H Pulse Oximetry 97 99 04/08/18 04:00 Temperature 98.1 F Pulse Rate 76 Respiratory Rate 20 Blood Pressure 112/58 L Pulse Oximetry 99 Intake & Output 04/07/18 04/08/18 04/08/18 18:59 06:59 18:59 Intake Total 1610 / 1610 1400 / 1400 Balance 1610 / 1610 1400 / 1400 Weight 84.1 kg Intake: IV 890 / 890 200 / 200 Vancomycin Inj 1,500 MG In NS 515 / 515 Inj 500 ML @ 250 mls/hr IV.SIG Q12H RUBEN Rx#:[id number] Vancomycin Inj 1,250 MG In NS 275 / 275 Inj 250 ML @ 250 mls/hr IV.SIG Q12H RUBEN Rx#:[id number] Tazicef Inj 1,000 MG In NS Inj 100 / 100 200 / 200 100 ML @ 200 mls/hr IV.SIG Q8H RUBEN Rx#:[id number] Oral 720 / 720 1200 / 1200 Other: # Voids 5 4 Date of Last Bowel Movement 04/05/18 04/08/18 # Bowel Movements 1 Narrative: GENERAL: This is a well-developed, well-nourished female. Awake and alert. Sitting up in bedside chair. Looks more comfortable today, has makeup on. Mother is at the bedside. SKIN: Warm and dry. No generalized rash. PICC line in place RUE. HEENT: Atraumatic. Normocephalic. EOMI. No scleral icterus. No injection or drainage. No nasal bleeding or discharge. Mucous membranes pink and moist. NECK: Trachea midline. No JVD. CARDIOVASCULAR: Regular rate and rhythm. RESPIRATORY: No accessory muscle use. Clear to auscultation. Breath sounds equal bilaterally. GASTROINTESTINAL: Abdomen soft, non-tender, nondistended. +BS. MUSCULOSKELETAL: Extremities without clubbing, cyanosis, or edema. No obvious deformities. NEUROLOGICAL: Awake and alert. No obvious cranial nerve deficits. Able to move all extremities. +tenderness to palpation lower lumbar spine. Motor grossly intact BLE. No focal neurologic finding appreciated. Normal speech. PSYCHIATRIC: Appropriate mood and affect; insight and judgment normal. Results - Labs CBC & Chem 7: 04/06/18 15:35 04/07/18 05:28 Laboratory Results - last 24 hr 04/07/18 05:28 Iron 20 L TIBC 315 % Saturation 6.3 L Ferritin 21 Vitamin B12 366 - Imaging Impressions Lumbar Spine MRI 04/06/18 00:00 CONCLUSION: 1. Stable follow-up MRI of the lumbar spine in this patient who has a known discitis at L4-5. 2. The findings at L4-5 are stable compared to the prior study with no new or significant changes. - Procedures 04/03/18 PROCEDURE: 1. Fluoroscopically guided needle biopsy. 2. Conscious sedation with continuous EKG and Oximetry monitoring. The risks, benefits and alternatives to the procedure were explained and verbal and written consent was obtained. The site was prepped in sterile fashion. Full sterile technique was used, including cap, mask, sterile gloves and gown and a large sterile sheet. Hand hygiene and 2% chlorhexidine and/or betadine/alcohol prep was utilized per protocol for cutaneous antisepsis. The skin and subcutaneous tissues were infiltrated with local anesthetic solution. With fluoroscopic guidance a 20-gauge needle was advanced down into the disc space at the L4/5 disc level. 2 20-gauge aspiration biopsies were obtained. Small disc fragments were evident. These were sent to pathology for evaluation.. Conscious sedation was performed with the prescribed dosages and duration as above in the presence of an independent trained radiology nurse to assist in the monitoring of the patient. EKG and oximetry remained stable throughout the procedure. CONCLUSION: 1. Uncomplicated needle biopsy of the L4/L5 disc as above. Electronically signed by: Bonifacio Hester MD 04/03/2018 1:00 PM EDT Assessment and Plan - Assessment (1) Intractable low back pain Code(s): M54.5 - Low back pain Status: Acute (2) Discitis of lumbar region Code(s): M46.46 - Discitis, unspecified, lumbar region Status: Acute - Plan 32-year-old female admitted secondary to discitis L45. Discitis L4-L5 Outpatient treatment failure Ciprofloxacin and doxycycline failed as an outpatient p.o. treatment MRI lumbar spine shows discitis at L4-5 with abnormal thickening and enhancement in the anterior epidural region with mass-effect on the anterior thecal sac with surrounding soft tissue swelling and edema. 04/06 Repeat MRI unchanged. Echo negative for vegetation Blood cultures with no growth 5 days. s/p CT guided bx with no growth to date ID following, appreciate assistance - continue on IV Vanc and Fortaz for now. Will need at least 8 weeks of Abx from date of therapeutic vanco dosing. Pharmacy to dose Vanco. 04/07 vanco subtherapeutic. Vanco dose increased. Repeat trough in am. Monitor Cr while on Vanco. Neurosurgery following, no surgical intervention at this time. They have signed off. Continue pain treatments with Percocet and MS Contin and Neurontin. Increase Neurontin to 400mg TID. Continue on Flexeril 10mg po TID prn muscle spasms Continue participation with physical therapy Microcytic, hypochromic anemia BRITTNEE Hgb low but stable Iron 20, %sat 6.3. Start on po iron supplementation. monitor CBC as indicated Constipation, resolved KUB showed moderate amount of stool in colon +BM continue on scheduled Pericolace and Miralax daily for now General anxiety disorder Panic attack disorder Exacerbated given current situation Xanax as needed Klonopin 3 times daily Hepatitis C LFTs WNL Standard precautions Patient will need to follow-up with GI as outpatient Hx of IVDU Patient has been clean for 2 years DVT prophylaxis Lovenox Code Status: FULL Discussed Condition With: patient, mother, nursing staff, Dr. Vanessa Discharge Planning: Not ready for discharge. Workup in progress. Discharge pending clinical improvement and ID clearance. Not therapeutic on IV vancomycin as of yet.
[2018-04-08] MEDS: HYDROmorphone PF Inj 2 MG/ML Vial IV.PUSH PRN ×4 (08:31→23:03)
[2018-04-08] MEDS: Morphine Sulfate 30 MG SR Tablet PO SCH ×2 (09:53→21:36)
[2018-04-08] MEDS: Senna/Docusate Sodium 8.6/50 MG Tablet PO SCH ×2 (09:53→21:35)
[2018-04-08] MEDS: Polyethylene Glycol 3350 17 GM Packet PO SCH (09:53)
[2018-04-08] MEDS: Lidocaine 5% Patch T-DERMAL SCH (09:53)
[2018-04-08] MEDS: Heparin Central Flush 100 UNIT/ML 5 ML Vial IV.FLUSH SCH (09:54)
[2018-04-08] MEDS: Gabapentin 300 MG Capsule PO SCH (09:54)
[2018-04-08] MEDS: Ascorbic Acid 500 MG Tablet PO SCH ×2 (09:54→21:34)
[2018-04-08] MEDS: Ferrous Sulfate 325 MG Tablet PO SCH ×2 (11:24→17:12)
[2018-04-08] MEDS: Gabapentin 400 MG Capsule PO SCH ×2 (12:58→17:12)
[2018-04-08] MEDS: Temazepam 15 MG Capsule PO PRN (21:35)
[2018-04-09] MEDS ORDERED: Pharmacy Ordered Lab Info OTHER SCH (00:45)
[2018-04-09] MEDS: Vancomycin Inj 1,500 MG in Sodium Chlor 0.9% Inj 500 ML IV.SIG SCH ×2 (01:05→15:00)
[2018-04-09] MEDS: oxyCODONE/Acetaminophen 10/325 Tablet PO PRN ×5 (01:09→21:19)
[2018-04-09] MEDS: HYDROmorphone PF Inj 2 MG/ML Vial IV.PUSH PRN ×5 (03:56→22:06)
[2018-04-09] MEDS: clonazePAM 0.5 MG Tablet PO SCH ×3 (05:54→22:06)
[2018-04-09 06:57] LABS: Glomerular Filtration Rate Greater Than 89 mL/min (>89)
--- NOTE | 2018-04-09 08:00 | P.PN ---
Subjective Interval history: Follow up on patient with history of L45 discitis, history of IV drug use clean for the past 2 years. Patient seen and examined. Patient states that the back spasms are present but are much improved. She continues to have significant low back pain with radiation into both hips. She denies any fever or chills. She denies any chest pain or shortness of breath. +BM. Physical Exam Vital signs: Vital Signs 04/08/18 09:55 04/08/18 11:07 04/08/18 12:00 Temperature 97.9 F Pulse Rate 69 Respiratory Rate 20 14 20 Blood Pressure 106/52 L Pulse Oximetry 98 04/08/18 14:15 04/08/18 14:17 04/08/18 15:28 Temperature Pulse Rate 67 Respiratory Rate 14 14 Blood Pressure 118/56 L Pulse Oximetry 04/08/18 16:00 04/08/18 20:00 04/08/18 23:40 Temperature 98 F 98 F Pulse Rate 78 95 H Respiratory Rate 20 22 19 Blood Pressure 121/56 L 138/65 Pulse Oximetry 100 96 04/09/18 00:00 04/09/18 03:12 04/09/18 04:00 Temperature 97.9 F 98 F Pulse Rate 89 81 Respiratory Rate 20 18 18 Blood Pressure 108/64 120/66 Pulse Oximetry 98 97 04/09/18 05:02 Temperature Pulse Rate Respiratory Rate 18 Blood Pressure Pulse Oximetry Intake & Output 04/08/18 04/09/18 04/09/18 18:59 06:59 18:59 Intake Total 5 / 1915 181 / 1815 Output Total 100 / 100 Balance 1814 / 181 181 / 181 Weight 88 kg Intake: IV 715 / 715 615 / 615 Vancomycin Inj 1,500 MG In NS 515 / 515 515 / 515 Inj 500 ML @ 250 mls/hr IV.SIG Q12H RUBEN Rx#:[id number] Tazicef Inj 1,000 MG In NS Inj 200 / 200 100 / 100 100 ML @ 200 mls/hr IV.SIG Q8H RUBEN Rx#:[id number] Oral 1200 / 1200 1200 / 1200 Output: Urine 100 / 100 Other: # Voids 4 4 Date of Last Bowel Movement 04/07/18 04/08/18 # Bowel Movements 1 # Incontinent Bowel Movements 0 Narrative: GENERAL: This is a well-developed, well-nourished female. Awake and alert. Sitting up in bed. Appears more comfortable today. SKIN: Warm and dry. No generalized rash. PICC line in place RUE. HEENT: Atraumatic. Normocephalic. EOMI. No scleral icterus. No injection or drainage. No nasal bleeding or discharge. Mucous membranes pink and moist. NECK: Trachea midline. No JVD. CARDIOVASCULAR: Regular rate and rhythm. RESPIRATORY: No accessory muscle use. Clear to auscultation. Breath sounds equal bilaterally. GASTROINTESTINAL: Abdomen soft, non-tender, nondistended. +BS. MUSCULOSKELETAL: Extremities without clubbing, cyanosis, or edema. No obvious deformities. NEUROLOGICAL: Awake and alert. No obvious cranial nerve deficits. Able to move all extremities. +tenderness to palpation lower lumbar spine. Motor grossly intact BLE. No focal neurologic finding appreciated. Normal speech. PSYCHIATRIC: Appropriate mood and affect; insight and judgment normal. Results - Labs CBC & Chem 7: 04/06/18 15:35 04/09/18 06:00 Laboratory Results - last 24 hr 04/09/18 06:00 Creatinine 0.20 L Estimated GFR Greater than 89 - Imaging Lumbar Spine MRI 03/29/18 13:34 CONCLUSION: Guidance Ultrasound 04/03/18 00:00 CONCLUSION: 1. Uncomplicated ultrasound guided venous access. Needle Biopsy/Aspiration X-Ray 04/03/18 00:00 CONCLUSION: 1. Uncomplicated needle biopsy of the L4/L5 disc as above. Abdomen X-Ray 04/04/18 00:00 CONCLUSION: Moderate amount of stool is seen throughout the colon. Lumbar Spine MRI 04/06/18 00:00 CONCLUSION: 1. Stable follow-up MRI of the lumbar spine in this patient who has a known discitis at L4-5. 2. The findings at L4-5 are stable compared to the prior study with no new or significant changes. - Procedures 04/03/18 PROCEDURE: 1. Fluoroscopically guided needle biopsy. 2. Conscious sedation with continuous EKG and Oximetry monitoring. The risks, benefits and alternatives to the procedure were explained and verbal and written consent was obtained. The site was prepped in sterile fashion. Full sterile technique was used, including cap, mask, sterile gloves and gown and a large sterile sheet. Hand hygiene and 2% chlorhexidine and/or betadine/alcohol prep was utilized per protocol for cutaneous antisepsis. The skin and subcutaneous tissues were infiltrated with local anesthetic solution. With fluoroscopic guidance a 20-gauge needle was advanced down into the disc space at the L4/5 disc level. 2 20-gauge aspiration biopsies were obtained. Small disc fragments were evident. These were sent to pathology for evaluation.. Conscious sedation was performed with the prescribed dosages and duration as above in the presence of an independent trained radiology nurse to assist in the monitoring of the patient. EKG and oximetry remained stable throughout the procedure. CONCLUSION: 1. Uncomplicated needle biopsy of the L4/L5 disc as above. Electronically signed by: Bonifacio Hester MD 04/03/2018 1:00 PM EDT Assessment and Plan - Assessment (1) Intractable low back pain Code(s): M54.5 - Low back pain Status: Acute (2) Discitis of lumbar region Code(s): M46.46 - Discitis, unspecified, lumbar region Status: Acute - Plan 32-year-old female admitted secondary to discitis L45. Discitis L4-L5 Outpatient treatment failure Ciprofloxacin and doxycycline failed as an outpatient p.o. treatment MRI lumbar spine shows discitis at L4-5 with abnormal thickening and enhancement in the anterior epidural region with mass-effect on the anterior thecal sac with surrounding soft tissue swelling and edema. 04/06 Repeat MRI unchanged. Echo negative for vegetation Blood cultures with no growth 5 days. s/p CT guided bx with no growth to date ID following, appreciate assistance - continue on IV Vanc and Fortaz for now. Will need at least 8 weeks of Abx from date of therapeutic vanco dosing. Pharmacy to dose Vanco. 04/07 vanco subtherapeutic. Vanco dose increased. Repeat trough timed at 1245 today, will f/u. Monitor Cr while on Vanco. Neurosurgery following, no surgical intervention at this time. They have signed off. Continue pain treatments with Percocet and MS Contin and Neurontin. Continue on Flexeril 10mg po TID prn muscle spasms Continue participation with physical therapy Microcytic, hypochromic anemia BRITTNEE Hgb low but stable Iron 20, %sat 6.3. Started on po iron supplementation, continue. monitor CBC as indicated Constipation, resolved KUB showed moderate amount of stool in colon +BM continue on scheduled Pericolace and Miralax daily for now General anxiety disorder Panic attack disorder Exacerbated given current situation Xanax as needed Klonopin 3 times daily Hepatitis C LFTs WNL Standard precautions Patient will need to follow-up with GI as outpatient Hx of IVDU Patient has been clean for 2 years DVT prophylaxis Lovenox Code Status: FULL Discussed Condition With: patient, nursing staff, Dr. Vanessa Discharge Planning: Not ready for discharge. Workup in progress. Discharge pending clinical improvement and ID clearance. Not therapeutic on IV vancomycin as of yet.
[2018-04-09] MEDS: Senna/Docusate Sodium 8.6/50 MG Tablet PO SCH ×2 (09:23→21:18)
[2018-04-09] MEDS: Heparin Central Flush 100 UNIT/ML 5 ML Vial IV.FLUSH SCH (09:23)
[2018-04-09] MEDS: Morphine Sulfate 30 MG SR Tablet PO SCH ×2 (09:23→21:18)
[2018-04-09] MEDS: Ascorbic Acid 500 MG Tablet PO SCH ×2 (09:23→21:19)
[2018-04-09] MEDS: Gabapentin 400 MG Capsule PO SCH ×3 (09:23→17:45)
[2018-04-09] MEDS: Lidocaine 5% Patch T-DERMAL SCH (09:24)
[2018-04-09] MEDS: Polyethylene Glycol 3350 17 GM Packet PO SCH (09:24)
[2018-04-09] MEDS: Ferrous Sulfate 325 MG Tablet PO SCH ×2 (12:21→16:25)
[2018-04-09] MEDS ORDERED: Pharmacy Ordered Lab Info OTHER ONE (12:45)
[2018-04-09] MEDS: Temazepam 15 MG Capsule PO PRN (21:18)
[2018-04-10] MEDS: Vancomycin Inj 1,750 MG in Sodium Chlor 0.9% Inj 500 ML IV.SIG SCH ×2 (01:39→14:13)
[2018-04-10] MEDS: oxyCODONE/Acetaminophen 10/325 Tablet PO PRN ×6 (01:39→22:43)
[2018-04-10] MEDS: HYDROmorphone PF Inj 2 MG/ML Vial IV.PUSH PRN ×7 (02:53→23:54)
[2018-04-10] MEDS: clonazePAM 0.5 MG Tablet PO SCH ×3 (05:22→21:37)
--- NOTE | 2018-04-10 07:21 | P.PN ---
Subjective Interval history: Follow up on patient with L45 discitis. Patient seen and examined. Patient still with significant back spasms/pain but much improved. She does report that she had a difficult night due to increased pain and spasm but believes she did more yesterday because her mother was not there to help her. She states the increased dose of Neurontin has improved the numbness/tingling in her feet. She denies any new medical complaints. She denies any fever or chills. Physical Exam Vital signs: Vital Signs 04/09/18 08:00 04/09/18 09:21 04/09/18 10:48 Temperature 97.9 F Pulse Rate 85 Respiratory Rate 14 14 14 Blood Pressure 117/59 L Pulse Oximetry 04/09/18 12:00 04/09/18 12:53 04/09/18 16:00 Temperature 97.9 F 98 F Pulse Rate 80 85 Respiratory Rate 20 14 14 Blood Pressure 108/62 122/78 Pulse Oximetry 98 04/09/18 17:45 04/09/18 20:00 04/10/18 00:00 Temperature 98.2 F 98.0 F Pulse Rate 86 80 Respiratory Rate 14 22 20 Blood Pressure 124/64 125/56 L Pulse Oximetry 98 97 04/10/18 04:00 Temperature 97.7 F Pulse Rate 87 Respiratory Rate 20 Blood Pressure 119/60 Pulse Oximetry 98 Intake & Output 04/09/18 04/10/18 04/10/18 18:59 06:59 18:59 Intake Total 817.5 / 817.5 Output Total 100 / 100 Balance -100 / -100 817.5 / 817.5 Weight 89 kg Intake: IV 817.5 / 817.5 Vancomycin Inj 1,750 MG In NS 517.5 / 517.5 Inj 500 ML @ 250 mls/hr IV.SIG Q12H RUBEN Rx#:[id number] Tazicef Inj 1,000 MG In NS Inj 300 / 300 100 ML @ 200 mls/hr IV.SIG Q8H RUBEN Rx#:[id number] Output: Urine 100 / 100 Other: # Voids 4 Date of Last Bowel Movement 04/08/18 04/08/18 # Bowel Movements 1 # Incontinent Bowel Movements 0 Narrative: GENERAL: This is a well-developed, well-nourished female. Awake and alert. Lying in bed. Oriented x 4. SKIN: Warm and dry. No generalized rash. PICC line in place RUE, no e/o infection. HEENT: Atraumatic. Normocephalic. EOMI. No scleral icterus. No injection or drainage. No nasal bleeding or discharge. Mucous membranes pink and moist. NECK: Trachea midline. No JVD. CARDIOVASCULAR: Regular rate and rhythm. RESPIRATORY: No accessory muscle use. Clear to auscultation. Breath sounds equal bilaterally. GASTROINTESTINAL: Abdomen soft, non-tender, nondistended. +BS. MUSCULOSKELETAL: Extremities without clubbing, cyanosis, or edema. No obvious deformities. NEUROLOGICAL: Awake and alert. No obvious cranial nerve deficits. Able to move all extremities. Limited ROM in all planes lumbar spine. +tenderness to palpation lower lumbar spine. Motor grossly intact BLE. No focal neurologic finding appreciated. Normal speech. PSYCHIATRIC: Appropriate mood and affect; insight and judgment normal. Results - Labs CBC & Chem 7: 04/06/18 15:35 04/09/18 06:00 Laboratory Results - last 24 hr 04/09/18 12:30 Vancomycin Trough 11.3 H - Imaging Lumbar Spine MRI 03/29/18 13:34 CONCLUSION: Guidance Ultrasound 04/03/18 00:00 CONCLUSION: 1. Uncomplicated ultrasound guided venous access. Needle Biopsy/Aspiration X-Ray 04/03/18 00:00 CONCLUSION: 1. Uncomplicated needle biopsy of the L4/L5 disc as above. Abdomen X-Ray 04/04/18 00:00 CONCLUSION: Moderate amount of stool is seen throughout the colon. Lumbar Spine MRI 04/06/18 00:00 CONCLUSION: 1. Stable follow-up MRI of the lumbar spine in this patient who has a known discitis at L4-5. 2. The findings at L4-5 are stable compared to the prior study with no new or significant changes. - Procedures 04/03/18 PROCEDURE: 1. Fluoroscopically guided needle biopsy. 2. Conscious sedation with continuous EKG and Oximetry monitoring. The risks, benefits and alternatives to the procedure were explained and verbal and written consent was obtained. The site was prepped in sterile fashion. Full sterile technique was used, including cap, mask, sterile gloves and gown and a large sterile sheet. Hand hygiene and 2% chlorhexidine and/or betadine/alcohol prep was utilized per protocol for cutaneous antisepsis. The skin and subcutaneous tissues were infiltrated with local anesthetic solution. With fluoroscopic guidance a 20-gauge needle was advanced down into the disc space at the L4/5 disc level. 2 20-gauge aspiration biopsies were obtained. Small disc fragments were evident. These were sent to pathology for evaluation.. Conscious sedation was performed with the prescribed dosages and duration as above in the presence of an independent trained radiology nurse to assist in the monitoring of the patient. EKG and oximetry remained stable throughout the procedure. CONCLUSION: 1. Uncomplicated needle biopsy of the L4/L5 disc as above. Electronically signed by: Bonifacio Hester MD 04/03/2018 1:00 PM EDT Assessment and Plan - Assessment (1) Intractable low back pain Code(s): M54.5 - Low back pain Status: Acute (2) Discitis of lumbar region Code(s): M46.46 - Discitis, unspecified, lumbar region Status: Acute - Plan 32-year-old female admitted secondary to discitis L45. Discitis L4-L5 Outpatient treatment failure Ciprofloxacin and doxycycline failed as an outpatient p.o. treatment MRI lumbar spine shows discitis at L4-5 with abnormal thickening and enhancement in the anterior epidural region with mass-effect on the anterior thecal sac with surrounding soft tissue swelling and edema. 04/06 Repeat MRI unchanged. Echo negative for vegetation Blood cultures with no growth 5 days. s/p CT guided bx with no growth to date ID following, appreciate assistance - continue on IV Vanc and Fortaz for now. Will need at least 8 weeks of Abx from date of therapeutic vanco dosing. Pharmacy to dose Vanco. 04/09 vanco subtherapeutic at 11.3. Vanco dose increased. Repeat trough 04/11. Monitor Cr while on Vanco. Neurosurgery following, no surgical intervention at this time. They have signed off. Continue pain treatments with Percocet and MS Contin and Neurontin. IV Dilaudid for breakthrough pain. Kthermia to lumbar spine. Continue on Flexeril 10mg po TID prn muscle spasms Continue participation with physical therapy Microcytic, hypochromic anemia BRITTNEE Hgb low but stable Iron 20, %sat 6.3. Started on po iron supplementation, continue. monitor CBC as indicated Constipation, resolved KUB showed moderate amount of stool in colon +BM continue on scheduled Pericolace and Miralax daily for now General anxiety disorder Panic attack disorder Exacerbated given current situation Xanax as needed Klonopin 3 times daily Hepatitis C LFTs WNL Standard precautions Patient will need to follow-up with GI as outpatient Hx of IVDU Patient has been clean for 2 years DVT prophylaxis Lovenox Code Status: Full Discussed Condition With: patient, nursing staff, Dr. Vanessa Discharge Planning: Not ready for discharge. Workup in progress. Discharge pending clinical improvement and ID clearance. Not therapeutic on IV vancomycin as of yet.
[2018-04-10] MEDS: Ascorbic Acid 500 MG Tablet PO SCH ×2 (09:29→21:37)
[2018-04-10] MEDS: Gabapentin 400 MG Capsule PO SCH ×3 (09:30→18:00)
[2018-04-10] MEDS: Senna/Docusate Sodium 8.6/50 MG Tablet PO SCH ×2 (09:30→21:38)
[2018-04-10] MEDS: Heparin Central Flush 100 UNIT/ML 5 ML Vial IV.FLUSH SCH (09:31)
[2018-04-10] MEDS: Morphine Sulfate 30 MG SR Tablet PO SCH ×2 (09:31→21:37)
[2018-04-10] MEDS: Polyethylene Glycol 3350 17 GM Packet PO SCH (09:32)
[2018-04-10] MEDS: Lidocaine 5% Patch T-DERMAL SCH (09:49)
[2018-04-10] MEDS: Ferrous Sulfate 325 MG Tablet PO SCH ×2 (13:07→16:25)
--- NOTE | 2018-04-10 14:14 | P.DCO ---
- Physical Therapy Order: Evaluate and treat, Improve ambulation, Strength and gait training - Home Health Nursing Order: Medical education, Signs/symptoms of disease process, Medication education-adverse effect, Nursing assessment with vital signs, IV medication administration - Certification I have seen patient Sandy Cantu on 04/10/18. My clinical findings support the need for the requested home health care services because: Deconditioned with increased weakness, Limited ability to care for self, High risk of falls I certify that my clinical findings support that this patient is homebound because: Unsteady gait/balance, Unsafe to leave home unassisted, Unable to use public transportation
[2018-04-10] MEDS: Temazepam 15 MG Capsule PO PRN (21:44)
[2018-04-11] MEDS: Vancomycin Inj 1,750 MG in Sodium Chlor 0.9% Inj 500 ML IV.SIG SCH ×5 (02:23→21:47)
[2018-04-11] MEDS: oxyCODONE/Acetaminophen 10/325 Tablet PO PRN ×6 (02:27→23:51)
[2018-04-11] MEDS: HYDROmorphone PF Inj 2 MG/ML Vial IV.PUSH PRN ×5 (04:55→20:46)
[2018-04-11] MEDS: clonazePAM 0.5 MG Tablet PO SCH ×3 (06:53→20:45)
[2018-04-11] MEDS: Lidocaine 5% Patch T-DERMAL SCH (08:42)
[2018-04-11] MEDS: Gabapentin 400 MG Capsule PO SCH ×3 (08:42→18:34)
[2018-04-11] MEDS: Morphine Sulfate 30 MG SR Tablet PO SCH ×2 (08:42→20:45)
[2018-04-11] MEDS: Senna/Docusate Sodium 8.6/50 MG Tablet PO SCH ×2 (08:43→20:45)
[2018-04-11] MEDS: Polyethylene Glycol 3350 17 GM Packet PO SCH (08:43)
[2018-04-11] MEDS: Ascorbic Acid 500 MG Tablet PO SCH ×2 (08:43→20:45)
[2018-04-11] MEDS: Heparin Central Flush 100 UNIT/ML 5 ML Vial IV.FLUSH SCH (08:43)
--- NOTE | 2018-04-11 10:33 | P.PNIM ---
Subjective Interval history: f/u discitis Still complaining of bilateral feet numbness and low back pain, unchanged, afebrile. She says she is unable to go to the bathroom because of the pain. Physical Exam Vital signs: Vital Signs 04/10/18 12:00 04/10/18 16:00 04/10/18 21:36 Temperature 98.6 F 98.3 F 97.8 F Pulse Rate 99 H 97 H 99 H Respiratory Rate 18 18 18 Blood Pressure 115/69 109/59 L 135/67 Pulse Oximetry 97 98 04/11/18 00:45 04/11/18 05:20 04/11/18 08:00 Temperature 97.8 F 98.2 F 98.2 F Pulse Rate 100 H 98 H 91 H Respiratory Rate 16 17 20 Blood Pressure 105/59 L 110/60 122/55 L Pulse Oximetry 99 100 97 Intake & Output 04/10/18 04/11/18 04/11/18 18:59 06:59 18:59 Intake Total 1477.5 / 1477.5 2700 / 2700 100 / 100 Balance 1477.5 / 1477.5 2700 / 2700 100 / 100 Weight 89 kg Intake: IV 517.5 / 517.5 200 / 200 100 / 100 Vancomycin Inj 1,750 MG In NS 517.5 / 517.5 Inj 500 ML @ 250 mls/hr IV.SIG Q12H RUBEN Rx#:[id number] Tazicef Inj 1,000 MG In NS Inj 200 / 200 100 / 100 100 ML @ 200 mls/hr IV.SIG Q8H RUBEN Rx#:[id number] Oral 960 / 960 2500 / 2500 Other: # Voids 4 4 Date of Last Bowel Movement 04/10/18 04/10/18 # Bowel Movements 0 Narrative: GENERAL: Not in distress. SKIN: Warm and dry. No generalized rash. PICC line in place RUE, no e/o infection. CARDIOVASCULAR: Regular rate and rhythm. RESPIRATORY: No accessory muscle use. Clear to auscultation. Breath sounds equal bilaterally. GASTROINTESTINAL: Abdomen soft, non-tender, nondistended. +BS. MUSCULOSKELETAL: Extremities without clubbing, cyanosis, or edema. No obvious deformities. NEUROLOGICAL: Awake and alert, oriented 3. No obvious cranial nerve deficits. Able to move all extremities. Limited ROM in all planes lumbar spine. +tenderness to palpation lower lumbar spine. Motor grossly intact BLE. No focal neurologic finding appreciated. Normal speech. Touch sensation present allegedly numb. Good plantarflexion and dorsiflexion. Results - Labs CBC & Chem 7: 04/06/18 15:35 04/09/18 06:00 Microbiology 04/03/18 11:37 Tissue - Other Fungal Smear - Final No fungal elements seen 04/03/18 11:37 Tissue - Other Fungal Culture - Preliminary No growth in 1 week 04/03/18 11:37 Tissue - Other Acid Fast Bacilli Smear - Final No acid fast bacilli seen 04/03/18 11:37 Tissue - Other Mycobacterial Culture - Preliminary No growth in 1 week - Procedures 04/03/18 PROCEDURE: 1. Fluoroscopically guided needle biopsy. 2. Conscious sedation with continuous EKG and Oximetry monitoring. The risks, benefits and alternatives to the procedure were explained and verbal and written consent was obtained. The site was prepped in sterile fashion. Full sterile technique was used, including cap, mask, sterile gloves and gown and a large sterile sheet. Hand hygiene and 2% chlorhexidine and/or betadine/alcohol prep was utilized per protocol for cutaneous antisepsis. The skin and subcutaneous tissues were infiltrated with local anesthetic solution. With fluoroscopic guidance a 20-gauge needle was advanced down into the disc space at the L4/5 disc level. 2 20-gauge aspiration biopsies were obtained. Small disc fragments were evident. These were sent to pathology for evaluation.. Conscious sedation was performed with the prescribed dosages and duration as above in the presence of an independent trained radiology nurse to assist in the monitoring of the patient. EKG and oximetry remained stable throughout the procedure. CONCLUSION: 1. Uncomplicated needle biopsy of the L4/L5 disc as above. Electronically signed by: Bonifacio Hester MD 04/03/2018 1:00 PM EDT Assessment and Plan - Assessment (1) Intractable low back pain Code(s): M54.5 - Low back pain Status: Acute (2) Discitis of lumbar region Code(s): M46.46 - Discitis, unspecified, lumbar region Status: Acute - Plan 32-year-old female admitted secondary to discitis L45. Discitis L4-L5, Outpatient treatment failure - Ciprofloxacin and doxycycline failed as an outpatient p.o. treatment. MRI lumbar spine shows discitis at L4-5 with abnormal thickening and enhancement in the anterior epidural region with mass-effect on the anterior thecal sac with surrounding soft tissue swelling and edema. 04/06 Repeat MRI unchanged. Echo negative for vegetation. Blood cultures with no growth 5 days. s/p CT guided bx with no growth to date. - ID following, continue on IV Vanc and Fortaz for now. Will need at least 8 weeks of Abx from date of therapeutic vanco dosing. Switch to vancomycin and ciprofloxacin 750 mg twice a day on discharge. - Neurosurgery following, no surgical intervention at this time. They have signed off. - Continue pain treatments with Percocet, Flexeril, lidocaine patch and MS Contin and Neurontin. IV Dilaudid for breakthrough pain. Kthermia to lumbar spine. Microcytic, hypochromic anemia BRITTNEE Hgb low but stable Iron 20, %sat 6.3. Continue iron supplementation. Constipation, resolved KUB showed moderate amount of stool in colon +BM continue on scheduled Pericolace and Miralax daily for now General anxiety disorder Panic attack disorder Exacerbated given current situation Xanax as needed Klonopin 3 times daily Hepatitis C LFTs WNL Standard precautions Patient will need to follow-up with GI as outpatient Hx of IVDU Patient has been clean for 2 years DVT prophylaxis Lovenox Code Status: Full Discharge pending clinical improvement and ID clearance. Not therapeutic on IV vancomycin as of yet.
[2018-04-11] MEDS: Ferrous Sulfate 325 MG Tablet PO SCH ×2 (11:24→18:34)
[2018-04-12] MEDS: HYDROmorphone PF Inj 2 MG/ML Vial IV.PUSH PRN ×5 (00:53→12:13)
[2018-04-12] MEDS: clonazePAM 0.5 MG Tablet PO SCH (05:51)
[2018-04-12] MEDS: oxyCODONE/Acetaminophen 10/325 Tablet PO PRN ×2 (07:16→11:20)
[2018-04-12] MEDS ORDERED: Pharmacy Ordered Lab Info OTHER ONE (08:45)
[2018-04-12] MEDS: Ascorbic Acid 500 MG Tablet PO SCH (08:53)
[2018-04-12] MEDS: Senna/Docusate Sodium 8.6/50 MG Tablet PO SCH (08:53)
[2018-04-12] MEDS: Gabapentin 400 MG Capsule PO SCH ×2 (08:53→12:15)
[2018-04-12] MEDS: Polyethylene Glycol 3350 17 GM Packet PO SCH (08:54)
[2018-04-12] MEDS: Lidocaine 5% Patch T-DERMAL SCH (08:56)
[2018-04-12] MEDS: Heparin Central Flush 100 UNIT/ML 5 ML Vial IV.FLUSH SCH (09:14)
[2018-04-12] MEDS: Morphine Sulfate 30 MG SR Tablet PO SCH (09:21)
[2018-04-12] MEDS: Vancomycin Inj 1,750 MG in Sodium Chlor 0.9% Inj 500 ML IV.SIG SCH (09:21)
[2018-04-12 10:06] VITALS: RESP 20
--- NOTE | 2018-04-12 10:58 | P.PNID ---
Subjective Remarks: Patient is a 32-year-old female, presented to the hospital complaining of worsening back pain. Her symptoms started around 05 March with low back pain. It was thought that it may be a sciatica, however it progressively worsen so she was admitted at [facility] around March 11. They were told that there was an abscess, and she subsequently underwent biopsy of her back about 3 days after being admitted. She was started on IV antibiotics when she came in, and was told that the culture of the biopsy came back negative. Patient stated that she was improving as far as the pain, and she was discharged on oral antibiotics with Cipro and doxycycline. She followed up with her primary care physician. About 4-5 days after she was discharged from the hospital, her back pain came back. It was pretty bad and it went all the way to the front down to both lower extremity. She also started having symptoms of neuropathy with pins and needles on her feet. She denies any urinary retention or any problem with bowel movement. She had several days of some loose stool but that has improved. She had several episode of temperature up to 101, but most of the time they are within normal limits. However she has been having some chills. She denies any respiratory complaint. She had some vomiting yesterday due to the severe pain. Medical records from [facility] have been requested and currently not available at the time my exam. She had an MRI done here which did not show any epidural abscess, but it did show findings of discitis at L4-L5. Since admission highest temperature has been 99+. Her sed rate is 72 and her C-reactive protein is elevated. Infectious disease consultation has been requested to assist with evaluation and treatment of patient with discitis. Notes reviewed Pain under control C/S of disc negative, AFB and fungal negative so far prelim Temps ok NO new complaint Has PICCRUE Antibiotics: Vancomycin Fortaz Lines: PIV no evid of infection Past Medical History: History of intravenous drug use in remission Osteomyelitis Hx of tubal ligation Previous section S/P biopsy Allergies/Adverse Reactions: Allergies tramadol Adverse Reaction (Verified 03/29/18 12:24) Gastrointestinal Upset Objective Vital Signs 04/11/18 12:00 04/11/18 16:00 04/11/18 21:00 Temperature 98.1 F 98.1 F 98.1 F Pulse Rate 89 88 105 H Respiratory Rate 20 20 16 Blood Pressure 134/61 113/69 116/69 Pulse Oximetry 98 98 100 04/11/18 21:53 04/12/18 02:07 04/12/18 05:30 Temperature 98 F 97 F L Pulse Rate 98 H 89 Respiratory Rate 20 17 18 Blood Pressure 120/69 110/66 Pulse Oximetry 99 99 04/12/18 07:42 04/12/18 08:00 Temperature 97.7 F 98 F Pulse Rate 89 80 Respiratory Rate 18 20 Blood Pressure 110/68 113/63 Pulse Oximetry 99 96 Intake & Output 04/11/18 04/12/18 04/12/18 18:59 06:59 18:59 Intake Total 100 / 100 3735.0 / 3735.0 100 / 100 Balance 100 / 100 3735.0 / 3735.0 100 / 100 Weight 89 kg 89 kg Intake: IV 100 / 100 1235.0 / 1235.0 100 / 100 Vancomycin Inj 1,750 MG In NS 1035.0 / 1035.0 Inj 500 ML @ 250 mls/hr IV.SIG Q12H RUBEN Rx#:[id number] Tazicef Inj 1,000 MG In NS Inj 100 / 100 200 / 200 100 / 100 100 ML @ 200 mls/hr IV.SIG Q8H RUBEN Rx#:[id number] Oral 2500 / 2500 Other: # Voids 1 2 Date of Last Bowel Movement 04/11/18 04/11/18 # Bowel Movements 2 04/03/18 11:37 Tissue - Other Fungal Smear - Final No fungal elements seen 04/03/18 11:37 Tissue - Other Fungal Culture - Preliminary No growth in 1 week 04/03/18 11:37 Tissue - Other Acid Fast Bacilli Smear - Final No acid fast bacilli seen 04/03/18 11:37 Tissue - Other Mycobacterial Culture - Preliminary No growth in 1 week Imaging: ITS Impressions Guidance Ultrasound 04/03/18 00:00 CONCLUSION: 1. Uncomplicated ultrasound guided venous access. Needle Biopsy/Aspiration X-Ray 04/03/18 00:00 CONCLUSION: 1. Uncomplicated needle biopsy of the L4/L5 disc as above. Abdomen X-Ray 04/04/18 00:00 CONCLUSION: Moderate amount of stool is seen throughout the colon. Lumbar Spine MRI 04/06/18 00:00 CONCLUSION: 1. Stable follow-up MRI of the lumbar spine in this patient who has a known discitis at L4-5. 2. The findings at L4-5 are stable compared to the prior study with no new or significant changes. Physical Exam: GENERAL: awake and alert, NAD SKIN: Cool and dry. No generalized rash, no ecchymoses and no evidence of embolic lesions. HEAD: Atraumatic. Normocephalic. No temporal wasting, or tenderness. EYES: [place] conjunctiva. No petechia or hemorrhage. No scleral icterus. No injection or drainage. EARS, NOSE AND THROAT: no thrush, moist mucosae NECK: Trachea midline. Supple and not tender, no meningeal signs CARDIOVASCULAR: Regular rate and rhythm. No murmurs, rubs or gallops heard RESPIRATORY: Clear to auscultation. Breath sounds equal bilaterally. No rales , wheezing or rhonchi ABDOMEN: Soft, non-tender, nondistended. Bowel sounds present and normoactive. No guarding. No rebound. No organomegaly. EXTREMITIES: No clubbing, cyanosis, or edema. BACK: unable to examine, pt refused to move 2/2 pain NEUROLOGICAL: Awake and alert. Cranial nerves grossly intact. Motor grossly within normal limits. PSYCHIATRIC: Normal affect, anxious due to pain, and cooperative. LINE: No evidence of infection Assessment and Plan - Plan Impression Back pain, findings of L4-L5 discitis on MRI C/S negative diskitis with prior abx use Hx IVDU (clean for about 1 year) Recommendation On IV vanco Follow C/S and decide on course of Abx - use IV vanco and also use po Cipro 750 BID - will need at least 8 weeks of Abx from date of therapeutic vanco dosing Filled out Abx form Followup with Dr Zamora D/W Dr Ceron Explained plan to patient OK to D/C once arrangements made for her IV Abx
--- NOTE | 2018-04-12 11:02 | P.DCO ---
Post Hospital Infusion Therapy Patient Weight: 89 kg - Diagnosis (1) Discitis of lumbar region Code(s): M46.46 - Discitis, unspecified, lumbar region - Administer Medication Vancomycin Additional Dosing Instructions: Vancomycin 1.75 gm IV q12h Stop Treatment: 06/05/18 - Additional Information Additional Medications: Cipro 750 mg po BID till Jun 05, 2018 Venous Access: PICC Line Additional Instructions: [x] Peripheral flush and dressing changes per protocol [x] Implanted port and central personal lines sales rep: * Implanted port: 10 ml Normal Saline followed by 5 ml Heparin 100 units/ml Heparin flush after each use and monthly to maintain. [] May leave port accessed during therapy. [] May leave peripheral site accessed for duration of therapy. [x] If patient has SOB or respiratory distress, check oxygen saturation. If less than 90% or clinical signs of respiratory distress, administer oxygen at 2 L/min. via nasal cannula and notify physician. [x] Anaphylaxis/Reaction orders: * Stop infusion. * Keep IV line open with saline flush. * Notify physician. * Monitor vital signs every 15 minutes until symptoms resolve. * Check Oxygen saturation; Oxygen at 2 L/min. via nasal cannula if less than 90% or clinical signs of respiratory distress. * Administer diphenhydramine (Benadryl) 25 mg IV STAT, (unless patient has received as pre-med). May repeat once, if necessary. * Solu-Cortef 250 mg IVP over 30-60 seconds, use 100 mg vials for each dissolution. * Epinephrine (1mg/1 ml) 0.3 mg subcutaneously or IVP now with any signs of respiratory distress. * Check with physician for new additional pre-med orders if patient is re- challenged or re-treated. [x] May remove PICC line when treatment complete. [x] If the patient is admitted to the hospital, the ED, or transferred via [facility] , complete transfer form including medication reconciliation order sheet. Weekly Labs: CBC w/diff, Creatinine, Vancomycin Trough (Labs every Tuesday - copy to me and Dr An Zamora) Additional Information: Please instruct patient to call Dr Zamora office for ID followup in 3 weeks Allergies tramadol Adverse Reaction (Verified 03/29/18 12:24) Gastrointestinal Upset
[2018-04-12] MEDS: Ferrous Sulfate 325 MG Tablet PO SCH (12:15)
[2018-04-12 13:07] VITALS: BP 125/65; PULSE 92; TEMP 98.3; O2SAT 100
--- NOTE | 2018-04-12 14:00 | P.DS ---
Date of admission: 03/29/18 19:13 Primary care physician: No Primary Care Physician Brief History from admission: 32-year-old female with known history of spinal abscess, history of IV drug use (subjectively clean for 1 year) who presented to the ER because of intractable back pain. Information was taken from patient and mother at bedside. Apparently her symptoms started about a month ago and they went to [facility] where she was diagnosed with a spinal abscess. They did a bone biopsy to indicate osteomyelitis, she was on 8 days of vancomycin IV while in the hospital. Patient was followed by infectious disease at that time and was discharged home on oral antibiotics to include Cipro and doxycycline. Patient did well for the first few days but then she started having progressive back pain, difficulty ambulating, unable to put on her own clothes. She indicates the pain has regressed got worse that wraps around her pelvis, paresthesia going down both lower extremities. Patient denies any loss of bowel or bladder control. Patient came to the hospital here for further evaluation. Patient had MRI performed here which did not indicate any abscess, however does indicate discitis of L4-L5. Because of that reason it was recommended that patient be admitted with neurosurgical consultation. Upon evaluating patient in the room she is laying on her side. She was continuously moaning and groaning due to pain. DS: Diagnosis - Discharge Diagnosis (1) Intractable low back pain Status: Acute (2) Discitis of lumbar region Status: Acute DS: Medications - Discharge Medications Prescriptions: ciprofloxacin 500 mg PO BID #108 tab cyclobenzaprine 10 mg PO Q8H PRN #90 tab PRN Reason: Spasm ferrous sulfate [FeroSul] 325 mg PO BID@1200,1700 #120 tab gabapentin [Neurontin] 400 mg PO TID #60 cap oxycodone-acetaminophen 1 tab PO Q4H PRN #18 tab PRN Reason: Pain Scale 6 To 10 polyethylene glycol 3350 17 gm PO DAILY #10 ea DS: Summary Hospital Course: This is a 32-year-old female with known history of spinal abscess, history of IV drug use who presented to the ER because of intractable back pain. She was initially seen at the hospital, discharged on ciprofloxacin and doxycycline after finishing a course of vancomycin. However on her return, MRI did not indicate any abscess was found to have discitis of L4 and L5. Patient was then treated with antibiotics after infectious disease consultation. She was started on vancomycin and Fortaz. Neurosurgery was consulted, no surgical intervention recommended. PICC line was placed, once the patient was therapeutic, the patient was discharged on vancomycin and ciprofloxacin to finish on June 05. The patient agreed not to use her PICC for any other reasons other than the antibiotics. She is going home with home health care. - Time Spent with Patient Total time spent providing and/or coordinating discharge services: Greater than 30 minutes - Quality: VTE Deep Vein Thrombosis/Pulmonary Embolism Present on Admission: No Exam Vital signs: Vital Signs 04/11/18 16:00 04/11/18 21:00 04/11/18 21:53 Temperature 98.1 F 98.1 F Pulse Rate 88 105 H Respiratory Rate 20 16 20 Blood Pressure 113/69 116/69 Pulse Oximetry 98 100 04/12/18 02:07 04/12/18 05:30 04/12/18 07:42 Temperature 98 F 97 F L 97.7 F Pulse Rate 98 H 89 89 Respiratory Rate 17 18 18 Blood Pressure 120/69 110/66 110/68 Pulse Oximetry 99 99 99 04/12/18 08:00 04/12/18 12:00 Temperature 98 F 98.3 F Pulse Rate 80 92 H Respiratory Rate 20 20 Blood Pressure 113/63 125/65 Pulse Oximetry 96 100 Intake & Output 04/11/18 04/12/18 04/12/18 18:59 06:59 18:59 Intake Total 100 / 100 3735.0 / 3735.0 617.5 / 617.5 Balance 100 / 100 3735.0 / 3735.0 617.5 / 617.5 Weight 89 kg 89 kg Intake: IV 100 / 100 1235.0 / 1235.0 617.5 / 617.5 Vancomycin Inj 1,750 MG In NS 1035.0 / 1035.0 517.5 / 517.5 Inj 500 ML @ 250 mls/hr IV.SIG Q12H RUBEN Rx#:[id number] Tazicef Inj 1,000 MG In NS Inj 100 / 100 200 / 200 100 / 100 100 ML @ 200 mls/hr IV.SIG Q8H RUBEN Rx#:[id number] Oral 2500 / 2500 Other: # Voids 1 2 Date of Last Bowel Movement 04/11/18 04/11/18 # Bowel Movements 2 Narrative: S> afebrile, no complaints, still with back pain but better. Vancomycin trough is 18.2. O> GENERAL: Not in distress. SKIN: Warm and dry. No generalized rash. PICC line in place RUE, no e/o infection. CARDIOVASCULAR: Regular rate and rhythm. RESPIRATORY: No accessory muscle use. Clear to auscultation. Breath sounds equal bilaterally. GASTROINTESTINAL: Abdomen soft, non-tender, nondistended. +BS. MUSCULOSKELETAL: Extremities without clubbing, cyanosis, or edema. No obvious deformities. NEUROLOGICAL: Awake and alert, oriented 3. No obvious cranial nerve deficits. Able to move all extremities. Limited ROM in all planes lumbar spine. +tenderness to palpation lower lumbar spine. Motor grossly intact BLE. No focal neurologic finding appreciated. Normal speech. Touch sensation present allegedly numb. Good plantarflexion and dorsiflexion. Results Procedures completed during hospitalization: 04/03/18 PROCEDURE: 1. Fluoroscopically guided needle biopsy. 2. Conscious sedation with continuous EKG and Oximetry monitoring. The risks, benefits and alternatives to the procedure were explained and verbal and written consent was obtained. The site was prepped in sterile fashion. Full sterile technique was used, including cap, mask, sterile gloves and gown and a large sterile sheet. Hand hygiene and 2% chlorhexidine and/or betadine/alcohol prep was utilized per protocol for cutaneous antisepsis. The skin and subcutaneous tissues were infiltrated with local anesthetic solution. With fluoroscopic guidance a 20-gauge needle was advanced down into the disc space at the L4/5 disc level. 2 20-gauge aspiration biopsies were obtained. Small disc fragments were evident. These were sent to pathology for evaluation.. Conscious sedation was performed with the prescribed dosages and duration as above in the presence of an independent trained radiology nurse to assist in the monitoring of the patient. EKG and oximetry remained stable throughout the procedure. CONCLUSION: 1. Uncomplicated needle biopsy of the L4/L5 disc as above. Electronically signed by: Bonifacio Hester MD 04/03/2018 1:00 PM EDT Labs on day of discharge: Labs from last 24 hours 04/12/18 08:50 Vancomycin Trough 18.2 H Preliminary micro results at discharge 04/03/18 11:37 Fungal Culture - Preliminary Tissue - Other No growth in 1 week 04/03/18 11:37 Mycobacterial Culture - Preliminary Tissue - Other No growth in 1 week - Impressions ITS Impressions Guidance Ultrasound 04/03/18 00:00 CONCLUSION: 1. Uncomplicated ultrasound guided venous access. Needle Biopsy/Aspiration X-Ray 04/03/18 00:00 CONCLUSION: 1. Uncomplicated needle biopsy of the L4/L5 disc as above. Abdomen X-Ray 04/04/18 00:00 CONCLUSION: Moderate amount of stool is seen throughout the colon. Lumbar Spine MRI 04/06/18 00:00 CONCLUSION: 1. Stable follow-up MRI of the lumbar spine in this patient who has a known discitis at L4-5. 2. The findings at L4-5 are stable compared to the prior study with no new or significant changes. Discharge Plan - Discharge Disposition Patient Disposition: /Home Health Service - Discharge Condition Condition: Stable - Discharge Order Discharge Orders: Discharge Order (Routine); Ordered 04/12/18 Ordered By: Bridgett Ceron - Discharge Details Anticipated Discharge Date: 04/12/18 Discharge Comment: when arrangements are done - Physicians Team Primary Care Provider: Primary Care Melaniei,Anu Attending Provider: Bridegtt Ceron Other Providers: Ke Sprague MD ; Isabella Madera MD ; Linda Kraus MD ; Cheryl Pool MD
== END 2018-04-12 13:16 | disposition home health service (06) ==
LOC: PHED 12:20 → PHEDA 19:13 → PH3 21:21 → N05 03-30 16:49
PROVIDERS: ADMIT Hospitalist; ATTEND Hospitalist